=== PATIENT | male | born 1950 | race Caucasian/White ===

== ENCOUNTER → 2018-05-03 09:03 | Outpatient (CLI) | payer MEDICARE, SELFPAY | PROVIDERS: Family Provider Family Medicine; PCP Family Medicine; Visit Provider Family Medicine | DX: R10.13 Epigastric pain (principal) | CPT/HCPCS: 74220 ==

== ENCOUNTER → 2018-08-07 11:36 | Outpatient (CLI) | payer MEDICARE, SELFPAY ==
[2016-11-24 09:02] VITALS: BMI 31.4
[2018-08-07 14:25] LABS: BUN 14 mg/dL (7-18); Creatinine, Serum 0.92 mg/dL (0.70-1.30); EST Glomerular Filtration Rate 87 mL/min (>60); Glucose 99 mg/dL (74-106)
[2018-08-07 14:26] LABS: ALB/GLOB Ratio 1.3 RATIO (0.9-2.4); AST(SGOT) 20 U/L (15-37); Alanine Aminotransfer ALT/SGPT 45 U/L (16-61); Albumin, Serum 3.9 g/dL (3.2-5.0); Alkaline Phosphatase 92 U/L (45-117); Anion Gap 6 (5-15); BUN/Creat Ratio 15.2 RATIO (10-20); Calcium,Total 8.5 mg/dL (8.5-10.1); Chloride 107 mmol/L (98-107); Cholesterol 193 mg/dL (200); Est Glom Filt Rate - Afr Amer 106 mL/min (>60); High Density Lipoprotein 39 mg/dL; PSA,Total - Annual Screen 2.03 ng/mL (0.00-4.00); Potassium 4.5 mmol/L (3.5-5.1); Protein, Total 6.9 g/dL (6.4-8.2); Sodium Level 141 mmol/L (136-145); Triglycerides 168 mg/dL; Very Low Density Lipoprotein 34 mg/dL (5-40)
--- OUTSIDE RECORDS SUMMARY | 2018-10-02 20:32 | XMS RPT_ITS ---
:1950 Author Organization OH[facility] Care Team Providers Name Role Phone Mamadou Ibarra Attending Unavailable Mamadou Ibarra Referring Unavailable Mamadou Ibarra Primary Care Unavailable Mamadou Ibarra Attending Unavailable Mamadou Ibarra Primary Care Unavailable PROBLEMS PROBLEMS No Problem Records FoundPROCEDURES PROCEDURES No Procedure Records FoundRESULTS RESULTS COMPREHENSIVE METABOLIC Collected: 08/07/2018 Status: F Source: [place] [facility] 11:37 AM [facility] REPOSITORY TYPE CODE TESTS RESULT OUT OF RANGE REFERENCE UNITS LAB L501.0100 74-106 mg/dL Normal GLU 99 Result Comment: Please note revised GLUCOSE reference range effective 2017. LAB L501.1000 7-18 mg/dL Normal BUN 14 LAB L501.1100 0.70-1.30 mg/dL Normal CREAT,SERUM 0.92 Result Comment: The validity of the calculated GFR AND GFRAA in patients over 70 years has not been determined. Clinical correlation is essential. LAB L501.1110 >60 mL/min Normal EST GFR 87 Result Comment: Non- GFR Calc LAB L501.1115 >60 mL/min Normal EST GFR - AA 106 Result Comment: GFR Calc LAB L501.1300 10-20 RATIO Normal BUN/CRE 15.2 LAB L501.1500 6.4-8.2 g/dL T Normal PROT 6.9 LAB L501.1800 3.2-5.0 g/dL Normal ALB 3.9 LAB L501.1950 2.2-4.2 g/dL Normal GLOB 3.0 LAB L501.2000 0.9-2.4 RATIO Normal A/G 1.3 LAB L501.2200 8.5-10.1 mg/dL CA Normal 8.5 LAB L501.4100 15-37 U/L Normal AST 20 LAB L501.4305 45-117 U/L Normal ALK P 92 LAB L501.4405 16-61 U/L Normal ALT 45 LAB L501.4600 0.20-1.00 mg/dL T Normal BILI 0.60 LAB L501.5300 136-145 mmol/L NA Normal 141 LAB L501.5600 3.5-5.1 mmol/L K Normal 4.5 LAB L501.5900 98-107 mmol/L CL Normal 107 LAB L501.6100 21.0-32.0 mmol/L Normal CO2 28.0 LAB L501.6200 5-15 Normal GAP 6 Performed By: #### L500.4050, L500.4100, L501.9910 #### [facility] [address] [place], [address] LIPID PROFILE Collected: 08/07/2018 Status: F Source: [place] 11:37 AM [facility] REPOSITORY TYPE CODE TESTS RESULT OUT OF RANGE REFERENCE UNITS LAB L501.4900 200 mg/dL Normal CHOL 193 Result Comment: <200 mg/dL Desirable 200-240 mg/dL Borderline >240 mg/dL High Risk LAB L501.5000 mg/dL Normal TRIG 168 Result Comment: The drugs N-Acetylcysteine and Metamizole may falsely depress this assay. Serum Triglycerides Reference Interval Normal <150 mg/dL Borderline high 150 - 199 mg/dL High 200 - 499 mg/dL Very High > or = 500 mg/dL LAB L501.6400 mg/dL Low HDL 39 Result Comment: The drugs N-Acetylcysteine and Metamizole may falsely depress this assay. Reference Range HDL <40 mg/dL Low HDL Cholesterol HDL >or= 60 mg/dL High HDL Cholesterol LAB L501.6500 0-130 mg/dL Normal LDL 120 LAB L501.6600 5-40 mg/dL Normal VLDL 34 Performed By: #### L500.4050, L500.4100, L501.9910 #### [facility] [address] [place], [address] PSA,TOTAL - ANNUAL Collected: 08/07/2018 Status: F Source: [place] S[place] 11:37 AM [facility] REPOSITORY TYPE CODE TESTS RESULT OUT OF RANGE REFERENCE UNITS LAB L501.9910 0.00-4.00 ng/mL Normal PSA,TOT 2.03 SCREEN Result Comment: This test was performed using the TPSA assay method for the [employer] chemistry system. Values obtained with different assay methods cannot be used interchangably. When changing PSA assays in the course of monitoring a patient, additional sequential testing should be carried out to confirm baseline values. Performed By: #### L500.4050, L500.4100, L501.9910 #### [facility] [address] [place], [address] ESOPHAGUS ONLY Observed: 05/03/2018 Status: F Source: [place] 9:08 AM [facility] REPOSITORY [facility] Imaging Services [address] [place] [address] Esophagus Only MR#: [id number] Acct: [id number] Name: DAVONTE FARLEY Lissy Rep #: [id number] : 1950 M 67 From: Pasha Patino MD PCP: Mamadou Ibarra MD Status: REG CLI Study: Esophagus Only Date of Exam: 05/03/18 Exam# [id number] Ordering Dr: Italo Ibarra MD STUDY: X-RAY - ESOPHAGUS (BARIUM SWALLOW) WITH FLUOROSCOPY REASON FOR EXAM: Male, 67 years old. Esophageal spasm. TECHNIQUE: 18 view(s) of the esophagus were obtained following swallowing of barium. FLUOROSCOPY TIME (if supplied): (0:26) minutes/seconds COMPARISON: None. FINDINGS: There is no demonstrated esophageal foreign body. There is no demonstrated stricture or mucosal abnormality. Normal gastroesophageal junction, without a demonstrated hiatal hernia. The patient ingested a 12 mm tablet of barium without any difficulty. There is atherosclerotic tortuosity of the aortic arch and descending thoracic aorta. Normal visualized pulmonary parenchyma. Normal visualized osseous structures of the thorax. RAD/Esophagus Only IMPRESSION: Normal plain film x-ray examination (barium swallow) of the esophagus. Electronically Signed: Pasha Patino MD at 10:12 EDT Tel [phone], Service support , CC: Mamadou Ibarra MD Beater Boss: Signed ALLERGIES ALLERGIES DATE TYPE / CODE NAME / CODE REACTION SEVERITY SOURCE 11/23/2016 Drug No Known Unknown [facility] Allergy/4160 Allergies/F00 Hospital 55190(SNOMED [id number](RXNOR Repository CT) M) ENCOUNTERS ENCOUNTERS ADMIT/DISCHARGE ACCOUNT ADMITTING ENCOUNTER LOCATION SOURCE NUMBER CLASS 08/07/2018 [id number] Ambulatory [place] [facility] ing:MFPLAB Repository 05/03/2018 [id number] Ambulatory [place] 0 [facility] ing:RAD Repository PAYERS PAYERS ENCOUNTER GUARANTOR PAYER SUBSCRIBER SOURCE 08/07/2018 Davonte Yuan Primary Davonte [id number] Insurance:HUMANA [place] [address] [place] PP[facility]olicy [id number] [address]Ksg: Number: Repository [id number] (HP) Date:[id number] [address] [place] [id number]: 08/07/2018 Secondary NOT GIVENUNK [place] Insurance:SELF PAY [facility] Number: Effective Repository Date:2018-08-07 05/03/2018 Davonte Yuan Primary Davonte Poole [id number] Insurance:HUMANA GorrellDOB: [address], [place] PPOPolicy [id number] [address]Gni: Number: Repository [id number] (HP) Date:[id number] [address] [place] [id number]: 05/03/2018 Secondary NOT GIVENUNK [place] Insurance:SELF PAY [facility]: Effective Repository Date:2018-04-30
== END ==
PROVIDERS: Family Provider Family Medicine; PCP Family Medicine; Visit Provider Family Medicine
DX: E78.00 Pure hypercholesterolemia, unspecified (principal); Z12.5 Encounter for screening for malignant neoplasm of prostate
CPT/HCPCS: 36415; 80053; 80061; 84153; G0103

== ENCOUNTER → 2019-03-21 | Outpatient (CLI) | payer MEDICARE, SELFPAY ==
[2016-11-24 09:02] VITALS: BMI 31.4
[2019-03-21 11:14] LABS: Anion Gap 6 (5-15); BUN 17 mg/dL (7-18); BUN/Creat Ratio 18.5 RATIO (10-20); Calcium,Total 8.7 mg/dL (8.5-10.1); Chloride 109 mmol/L (98-107); Cholesterol 164 mg/dL (200); Creatinine, Serum 0.92 mg/dL (0.70-1.30); EST Glomerular Filtration Rate 87 mL/min (>60); Est Glom Filt Rate - Afr Amer 106 mL/min (>60); Glucose 122 mg/dL (74-106); High Density Lipoprotein 39 mg/dL; Potassium 4.4 mmol/L (3.5-5.1); Sodium Level 142 mmol/L (136-145); Triglycerides 207 mg/dL; Very Low Density Lipoprotein 41 mg/dL (5-40)
== END | disposition home or self-care (01) ==
PROVIDERS: Family Provider Family Medicine; PCP Family Medicine; Visit Provider Family Medicine
DX: I10 Essential (primary) hypertension (principal)
CPT/HCPCS: 36415; 80048; 80061

== ENCOUNTER 2019-06-27 17:26 | Emergency (ER) | payer MEDICARE, SELFPAY ==
[2019-06-27 17:27] VITALS: BP 169/86; PULSE 70; RESP 17; TEMP 36.6; O2SAT 97; BMI 30.4
--- NOTE | 2019-06-27 18:00 | ED.DCSUM_ITS ---
History of Present Illness Chief Complaint: Abd Pain Informant: Patient Onset: Days - 5 Context: Gradual Onset Timing: Intermittent Current Severity: Mild Maximum Severity: Moderate Narrative: Is a 69-year-old male with history of hypertension hyperlipidemia presenting from home with an abnormal CT scan. Patient saw his primary care doctor today because he been having abdominal discomfort as well as constipation mixed with diarrhea. He has not had any associated fever, chills, nausea or vomiting. He did have a large bowel movement 2 days ago that was black and diarrhea. Outpatient CT showed terminal ileitis and pancolitis. Patient states he is actually feeling better right now. He notes he is been feeling unwell and fatigued this week but denies any other complaints. His doctor instructed him to come to the emergency room which is why he is here. Patient is on any anticoagulation and states that he had 3 colonoscopies in the past because his first 1 had polyps. He states is otherwise had normal colonoscopies. Does not have any history of Crohn's or ulcerative colitis. Denies any family history of inflammatory bowel disease. Past Medical History - Allergies and Home Meds Allergies/Adverse Reactions: Allergies No Known Allergies Allergy (Verified 06/27/19 17:26) Primary Care Physician: Italo Ibarra MD [Primary Care Provider] - Past Medical History: - - Hypertension, hyperlipidemia Surgical History: noncontributory Smoking Status: Never smoker Review of Systems All systems negative except as indicated Gastrointestinal: Reports: Abdominal pain, Diarrhea, Melena Physical Exam Vital Signs/Narrative: Vital Signs Temp Pulse Resp BP Pulse Ox 06/27/19 17:27 97.8 F 70 17 169/86 H 97 Inital Vital Signs reviewed: Yes General: Well nourished, Well developed, No Acute Distress Head: Normocephalic, Atraumatic Eyes: Perrl, EOMI ENT: Moist mucous membranes, No rhinorrhea Neck: Supple, Nontender Cardiovascular: Regular rate, Regular rhythm, No murmurs Respiratory: No distress, CTA bilaterally, Chest nontender Abdomen: Soft, Nontender, Nondistended, Hyperactive bowel sounds Back: Nontender, Normal Inspection Extremities: Nontender, No edema Skin: Normal color, No rash Neurological: Alert, Oriented x3, Cranial nerves II-XII grossly intact, Normal Strength, Normal Sensation Psychological: Normal affect, Normal Mood Diagnostic/Tx/Re-eval Laboratory Results - last 24 hr 06/27/19 06/27/19 17:05 17:05 WBC 5.2 RBC 4.84 Hgb 15.2 Hct 42.6 MCV 88.0 MCH 31.4 MCHC 35.7 RDW Std Deviation 43.7 RDW Coeff of Arya 13.5 Plt Count 168 MPV 11.5 Immature Gran % (Auto) 0.200 Neut % (Auto) 62.8 Lymph % (Auto) 18.4 L [place] % (Auto) 16.1 H Eos % (Auto) 1.9 Baso % (Auto) 0.6 Absolute Neuts (auto) 3.2 Absolute Lymphs (auto) 0.95 Nucleated RBC % 0 Sodium 138 Potassium 3.4 L Chloride 105 Carbon Dioxide 25.0 Anion Gap 8 BUN 14 Creatinine 0.92 Estim Creat Clear Calc 82.98 Est GFR (MDRD) Af Amer 106 Est GFR (MDRD) Non-Af 87 BUN/Creatinine Ratio 15.2 Glucose 97 Calcium 8.8 Total Bilirubin 1.10 H AST 27 ALT 41 Alkaline Phosphatase 91 Total Protein 7.7 Albumin 3.8 Globulin 3.9 Albumin/Globulin Ratio 1.0 - Medical Decision Making Patient is evaluated for abdominal pain, diarrhea and abnormal outpatient CT scan. CT scan was concerning for inflammation of the terminal ileum and colitis. Patient does not have a history of inflammatory bowel disease and likely this is infectious. He Is guaiac negative and I have a low suspicion for mesenteric ischemia. Patient's abdomen is soft and nontender on my exam. His white blood cell count is normal as well as his vital signs. Patient was placed on Augmentin to treat infectious colitis. Discussed with physician investigation clerk, Dr. Yo, the results and his need for further outpatient follow-up. I do not think patient requires admission as he is hemodynamically stable does not have significant pain and is tolerating p.o. Patient is counseled on signs and symptoms requiring return to the emergency room. Patient verbalizes agreement and understand this plan. Patient discharged home in stable and improved condition. After patient is discharged before he leaves the ER he does note that he has a mild itching on the palms of his left hand distal to his IV with some mild redness. Patient has good distal capillary refill and is neurovascularly intact. I suspect this might be localized vasoconstriction or other mild reaction to his saline. Patient still cleared for discharge. He is counseled to put ice on it and return if it worsens. ED Disposition - Plan for ED Patient: Disposition: Home or Assisted Living Diagnosis: Colitis Prescriptions: Amoxicillin/Potassium Clav [Augmentin 875-125 Tablet] 1 ea PO BID #14 tab Prescription Printed Referrals: Italo Ibarra MD [Primary Care Provider] - Additional Instructions: Your CT today showed inflammation of your colon. We are presuming that it is from an infection. I am starting you on antibiotics for this. Please follow-up with your primary care doctor early next week. Return to the emergency room if you develop any worsening pain, black or bloody stools, fever or other worsening symptoms. Drink plenty of fluids. Make sure you complete the entire course of antibiotics.
[2019-06-27] MEDS: 0.9% Normal Saline 1,000 ML 1000 ML IV (18:14)
[2019-06-27 18:36] LABS: Absolute Lymphocyte Count 0.95 X10^3/uL (0.83-4.51); Absolute Neutrophil Count 3.2 X10^3/uL (2.0-7.7); Basophil# 0.03 X10^3/uL; Basophil% 0.6 % (0-1); Eosinophils% 1.9 % (0-5); Hematocrit 42.6 % (40-54); Hemoglobin 15.2 g/dL (13.0-16.5); Lymphocyte # 0.95 X10^3/ul (4.0); Lymphocyte % 18.4 % (19-41); Mean Corp Hgb Conc 35.7 g/dL (32-36); Mean Corpuscular Hgb 31.4 pg (27.0-32.0); Mean Platelet Vol. 11.5 fl (6.2-12.0); Monocyte# 0.83 X10^3/uL; Monocyte% 16.1 % (0-10); NRBC Flagged by Analyzer 0 % (0-5); Neutrophil # 3.24 X10^3/uL (2.7-7.7); Neutrophil % 62.8 % (47-70); Platelet Count 168 K/mm3 (150-450); RBC Distribution Width CV 13.5 % (11.6-14.6); RBC Distribution Width SD 43.7 fl (35.1-43.9); Red Blood Count 4.84 M/mm3 (4.6-6.2); White Blood Count 5.2 K/mm3 (4.4-11.0)
[2019-06-27 18:48] LABS: AST(SGOT) 27 U/L (15-37); Alanine Aminotransfer ALT/SGPT 41 U/L (16-61); Albumin, Serum 3.8 g/dL (3.2-5.0); Alkaline Phosphatase 91 U/L (45-117); Anion Gap 8 (5-15); BUN 14 mg/dL (7-18); BUN/Creat Ratio 15.2 RATIO (10-20); Calcium,Total 8.8 mg/dL (8.5-10.1); Chloride 105 mmol/L (98-107); Creatinine, Serum 0.92 mg/dL (0.70-1.30); EST Glomerular Filtration Rate 87 mL/min (>60); Est Glom Filt Rate - Afr Amer 106 mL/min (>60); Estimated Creatinine Clearance 82.98 ml/min; Globulin 3.9 g/dL (2.2-4.2); Glucose 97 mg/dL (74-106); Potassium 3.4 mmol/L (3.5-5.1); Protein, Total 7.7 g/dL (6.4-8.2); Sodium Level 138 mmol/L (136-145)
[2019-06-27] MEDS: Amox/Clavulanate 875 MG Tablet PO (19:37)
[2019-06-27 19:48] VITALS: BP 156/78; PULSE 71; RESP 15; O2SAT 97
--- NOTE | 2019-06-27 19:49 | ED.RN ---
PT WITH REDDENED AREA TO LEFT HAND. DR. WATT INFORMED. REPORTS SHE WILL ASSESS PT. PT REPORTS ITCHINESS TO AREA, DENIES ANY PAIN. REPORTS IT STARTED AFTER THE IV FLUIDS WERE INITIATED THROUGH LEFT WRIST IV.
== END 2019-06-27 20:00 | disposition home or self-care (01) ==
PROVIDERS: Emergency Provider Emergency Medicine; Family Provider Family Medicine; PCP Family Medicine
DX: K52.9 Noninfective gastroenteritis and colitis, unspecified (principal); R10.32 Left lower quadrant pain; E78.5 Hyperlipidemia, unspecified; I10 Essential (primary) hypertension; Z79.899 Other long term (current) drug therapy
CPT/HCPCS: 74177; 80053; 82274; 85025; 96360; 99285; J7030; Q9967; A4216

== ENCOUNTER → 2019-06-27 | Outpatient (CLI) | payer MEDICARE, SELFPAY ==
--- NOTE | 2019-06-27 12:21 | CT_ITS ---
STUDY: CT ABDOMEN AND PELVIS WITH CONTRAST REASON FOR EXAM: Male, 69 years old. One week history of constipation/diarrhea and left lower quadrant pain. RADIATION DOSAGE (If Supplied By Facility): CTDIvol = ( 18 ) mGy, DLP = ( 1254.55 ) mGycm TECHNIQUE: Transaxial images were obtained from the dome of the diaphragm to the symphysis pubis with oral contrast. IV/Oral Isovue 250 100CC was administered. Sagittal and coronal images were reconstructed. Individualized dose optimization techniques were used for this CT. COMPARISON: Comparison is made with prior study November 13, 2016. FINDINGS: The visualized lung bases are unremarkable. Coronary artery calcification. There is decreased attenuation of the liver consistent with steatosis. Stable 4.1 cm x 3.1 cm cyst in the posterior aspect of the right lobe of the liver. There are multiple small gallstones. There is a benign calcified granuloma of the spleen. Normal pancreas. Normal bilateral adrenal glands. Normal right kidney. There is a 2.1 cm x 3.2 cm cyst in the upper lateral portion of the left breast. There is a small hiatal hernia. Mild degree of inflammatory changes involving the terminal ileum. 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 Sigmoid diverticulosis. The appendix is visualized and appears normal. Normal abdominal aorta. Normal inferior vena cava. Normal retroperitoneum. Normal urinary bladder. Small bilateral inguinal hernias containing fat. There are degenerative changes of the visualized lumbar spine. CT/Abdomen/Pelvis WITH Contrast IMPRESSION: And colitis. Inflammatory changes seen in the terminal ileum. Electronically Signed: Pasha Patino, at 15:11 EDT , Service support ,
[2019-06-27 14:50] LABS: CREATININE FINGERSTICK 0.9 mg/dL (0.70-1.30)
== END | disposition home or self-care (01) ==
LOC: CT 12:12
PROVIDERS: Family Provider Family Medicine; PCP Family Medicine; Referring Provider Family Medicine; Visit Provider Family Medicine
DX: R10.32 Left lower quadrant pain (principal)
CPT/HCPCS: 74177; Q9967

== ENCOUNTER → 2019-10-10 14:49 | Outpatient (CLI) | payer MEDICARE, SELFPAY ==
--- NOTE | 2019-10-10 14:56 | ECHOD_ITS ---
Reason For Study: Murmur Procedure This was a 2D Doppler, Color Flow transthoracic echocardiogram. Exam performed in department. Left Ventricle Normal LV size. Left ventricular systolic function is normal. The estimated ejection fraction is 65 %. No evidence for diastolic dysfunction. No regional wall motion abnormalities noted. Right Ventricle Normal RV size. Normal systolic function. Atria The left atrium is mildly enlarged. Normal right atrium. No doppler evidence for ASD. Mitral Valve There is no mitral annular calcification. Normal mitral valve. Mild (1+) mitral valve insufficiency. Tricuspid Valve Normal tricuspid valve. Trivial tricuspid valve insufficiency. Right ventricular systolic pressure estimated to be 19 mmHg. Aortic Valve Trisinus/trileaflet aortic valve. Moderate diffuse aortic valve calcification. Aortic valve sclerosis/mild aortic valve stenosis. Trivial aortic valve insufficiency. Pulmonic Valve The pulmonic valve is not well visualized. Trivial pulmonic valve insufficiency. Great Vessels Normal sized aortic root. Pericardium/Pleural No pericardial effusion. MMode/2D Measurements & Calculations LVIDd: 5.2 cm IVSd: 1.3 cm LVOT diam: 2.0 cm LVIDs: 2.4 cm LVPWd: 1.2 cm LVOT area: 3.2 cm2 RVDd: 3.8 cm FS: 53.1 % Ao root diam: 2.9 cm LAV(MOD-bp): 34.0 ml LVAd ap4: 22.3 cm2 LAV(MOD-bp) Indexed: 15.8 ml/m2 EDV(MOD-sp4): 52.5 ml LAV(MOD-sp2): 44.4 ml EDV(sp4-el): 53.0 ml LAV(MOD-sp4): 25.6 ml LVAs ap4: 10.6 cm2 ESV(MOD-sp4): 16.4 ml ESV(sp4-el): 16.1 ml EF(MOD-sp4): 68.7 % EF(sp4-el): 69.6 % SV(MOD-sp4): 36.1 ml SV(sp4-el): 36.9 ml LA A4 area: 12.8 cm2 LA dimension(2D): 3.9 cm RA A4 area: 13.0 cm2 Doppler Measurements & Calculations MV E max edd: 46.4 cm/sec Lat Peak E' Edd: 6.1 cm/sec Med Peak E' Edd: 4.9 cm/sec MV A max edd: 63.1 cm/sec E/E' lat: 7.6 E/E' med: 9.5 MV E/A: 0.74 Ao V2 max: 231.9 cm/sec LV V1 max: 155.1 cm/sec SV(LVOT): 100.1 ml Ao max P.5 mmHg LV V1 max P.6 mmHg Ao V2 mean: 169.4 cm/sec LV V1 mean P.0 mmHg Ao mean P.6 mmHg LV V1 mean: 105.1 cm/sec Ao V2 VTI: 47.2 cm LV V1 VTI: 31.0 cm TERRY(I,D): 2.1 cm2 TERRY(V,D): 2.2 cm2 PA V2 max: 142.5 cm/sec TR max edd: 198.1 cm/sec TR max P.7 mmHg Interpretation Summary Left ventricular systolic function is normal. The estimated ejection fraction is 65 %. The left atrium is mildly enlarged. Mild (1+) mitral valve insufficiency. Trivial tricuspid valve insufficiency. Aortic valve sclerosis/mild aortic valve stenosis Trivial aortic valve insufficiency. Trivial pulmonic valve insufficiency. Right ventricular systolic pressure estimated to be 19 mmHg. No evidence for diastolic dysfunction. Ordering Physician: Mamadou Ibarra Referring Physician: Mamadou bIarra Performed By: Cristin Stringer RDCS, RVT
== END ==
LOC: CVS 14:51
PROVIDERS: PCP Family Medicine; Referring Provider Family Medicine; Visit Provider Family Medicine
DX: R01.1 Cardiac murmur, unspecified (principal)
CPT/HCPCS: 93306

== ENCOUNTER → 2020-03-30 | Outpatient (CLI) | payer MEDICARE, SELFPAY ==
[2020-03-30 13:09] LABS: ALB/GLOB Ratio 1.3 RATIO (0.9-2.4); AST(SGOT) 15 U/L (15-37); Alanine Aminotransfer ALT/SGPT 33 U/L (16-61); Alkaline Phosphatase 84 U/L (45-117); Anion Gap 5 (5-15); BUN 17 mg/dL (7-18); Calcium,Total 8.4 mg/dL (8.5-10.1); Chloride 108 mmol/L (98-107); Cholesterol 186 mg/dL (200); Creatinine, Serum 0.89 mg/dL (0.70-1.30); EST Glomerular Filtration Rate 90 mL/min (>60); Est Glom Filt Rate - Afr Amer 109 mL/min (>60); Glucose 98 mg/dL (74-106); High Density Lipoprotein 41 mg/dL; Potassium 4.4 mmol/L (3.5-5.1); Sodium Level 140 mmol/L (136-145); Triglycerides 233 mg/dL; Very Low Density Lipoprotein 47 mg/dL (5-40)
== END | disposition home or self-care (01) ==
LOC: MFPLAB 10:19
PROVIDERS: PCP Family Medicine; Referring Provider Family Medicine; Visit Provider Family Medicine
DX: E78.00 Pure hypercholesterolemia, unspecified (principal); Z12.5 Encounter for screening for malignant neoplasm of prostate
CPT/HCPCS: 36415; 80053; 80061; 84153; G0103

== ENCOUNTER → 2020-08-10 15:59 | Outpatient (CLI) | payer MEDICARE, SELFPAY ==
--- NOTE | 2020-08-10 16:01 | RAD_ITS ---
HISTORY: right thumb pain from injury several weeks ago COMPARISON: None FINDINGS: # of images incl. paperwork: 3 XR Fingers Min 2 Views: Right BONE AND JOINTS: There is a tiny calcification is seen at the dorsal aspect of the thumb at the interphalangeal joint. This may be secondary to a small avulsed fragment from the base of the distal phalanx. This is only seen on the lateral view SOFT TISSUES: There is no associated soft tissue swelling No radiopaque foreign body. RAD/Finger(s) Min 2 Views IMPRESSION: Small osseous fragment at the dorsum of the thumb at the interphalangeal joint. This may represent a small avulsed fragment. No associated soft tissue swelling Correlate with the area of pain at 0310 Reported and signed by: Brenda Diaz DO Electronically Signed: Brenda Diaz DO at 3:09 EST Tel , Service support ,
== END ==
PROVIDERS: PCP Family Medicine; Referring Provider Family Medicine; Visit Provider Family Medicine
DX: M79.644 Pain in right finger(s) (principal)
CPT/HCPCS: 73140

== ENCOUNTER 2021-10-04 09:47 | Outpatient (CLI) | payer MEDICARE, SELFPAY ==
[2021-10-04 12:46] LABS: ALB/GLOB Ratio 1.3 RATIO (0.9-2.4); AST(SGOT) 14 U/L (15-37); Alanine Aminotransfer ALT/SGPT 44 U/L (16-61); Alkaline Phosphatase 91 U/L (45-117); Anion Gap 7 (5-15); BUN 14 mg/dL (7-18); BUN/Creat Ratio 15.9 RATIO (10-20); Calcium,Total 8.5 mg/dL (8.5-10.1); Chloride 108 mmol/L (98-107); Cholesterol 172 mg/dL (200); Creatinine, Serum 0.88 mg/dL (0.70-1.30); EST Glomerular Filtration Rate 91 mL/min (>60); Est Glom Filt Rate - Afr Amer 110 mL/min (>60); Glucose 102 mg/dL (74-106); High Density Lipoprotein 40 mg/dL; PSA,Total - Annual Screen 2.24 ng/mL (0.00-4.00); Potassium 4.5 mmol/L (3.5-5.1); Sodium Level 142 mmol/L (136-145); Triglycerides 253 mg/dL; Very Low Density Lipoprotein 51 mg/dL (5-40)
== END 2021-10-04 23:59 | disposition short-term general hospital (02) ==
LOC: MFPLAB 09:50
PROVIDERS: PCP Family Medicine; Referring Provider Family Medicine; Visit Provider Family Medicine
DX: Z12.5 Encounter for screening for malignant neoplasm of prostate (principal); E78.00 Pure hypercholesterolemia, unspecified
CPT/HCPCS: 36415; 80053; 80061; 84153; G0103

== ENCOUNTER → 2022-11-03 | Outpatient (CLI) | payer MEDICARE, SELFPAY ==
--- NOTE | 2022-11-03 08:58 | EKG12_ITS ---
Test Reason : WELL CHECK Blood Pressure : / mmHG Vent. Rate : 051 BPM Atrial Rate : 051 BPM P-R Int : 160 ms QRS Dur : 106 ms QT Int : 432 ms P-R-T Axes : 087 039 050 degrees QTc Int : 398 ms Sinus bradycardia Nonspecific ST abnormality Abnormal ECG Confirmed by CHASTITY DAS, KAYLIN ([id number]), sound editor FANTASMA SEGUNDO ([id number]) on 11/06/2022 11:20:33 AM Referred By: Italo Ibarra Confirmed By:KAYLIN HAYWOOD MD
== END | disposition home or self-care (01) ==
PROVIDERS: PCP Family Medicine; Referring Provider Family Medicine; Visit Provider Family Medicine
DX: Z00.00 Encounter for general adult medical examination without abnormal findings (principal); R06.00 Dyspnea, unspecified
CPT/HCPCS: 93005

== ENCOUNTER → 2022-11-09 | Outpatient (CLI) | payer MEDICARE, SELFPAY ==
--- NOTE | 2022-11-09 08:57 | ECHOD_ITS ---
Reason For Study: DYSPNEA Procedure This was a 2D Doppler, Color Flow transthoracic echocardiogram. Exam performed in department. Left Ventricle Normal LV size. The estimated ejection fraction is 70 %. Diastolic function is indeterminate. No regional wall motion abnormalities noted. Right Ventricle Normal RV size. Normal systolic function. Atria The left atrium is mildly enlarged. Normal right atrium. No doppler evidence for ASD. Mitral Valve There is no mitral valve stenosis. Trivial mitral valve insufficiency. Tricuspid Valve There is no tricuspid stenosis. Trivial tricuspid valve insufficiency. Unable to estimate RV systolic pressure due to insufficient tricuspid regurgitant envelope. Aortic Valve Trisinus/trileaflet aortic valve. Moderate diffuse aortic valve thickening. Mild aortic stenosis. Trivial aortic valve insufficiency. Pulmonic Valve There is no pulmonic valvular stenosis. No pulmonic valve insufficiency. Great Vessels Normal aortic root. Pericardium/Pleural No pericardial effusion. MMode/2D Measurements & Calculations LVIDd: 4.7 cm IVSd: 1.2 cm LVOT diam: 1.9 cm LVIDs: 2.8 cm LVPWd: 1.3 cm LVOT area: 3.0 cm2 RVDd: 3.8 cm FS: 41.3 % Ao root diam: 3.0 cm LAV(MOD-sp4): 67.1 ml LVAd ap4: 30.5 cm2 LVLd ap4: 8.9 cm EDV(MOD-sp4): 85.7 ml EDV(sp4-el): 89.0 ml LVAs ap4: 13.9 cm2 LVLs ap4: 6.5 cm ESV(MOD-sp4): 25.7 ml ESV(sp4-el): 25.2 ml EF(MOD-sp4): 70.0 % EF(sp4-el): 71.7 % SV(MOD-sp4): 60.0 ml SV(sp4-el): 63.8 ml LA A4 area: 21.6 cm2 RA A4 area: 14.2 cm2 Time Measurements MV dec time: 0.21 sec Doppler Measurements & Calculations MV E max edd: 49.1 cm/sec Lat Peak E' Edd: 5.6 cm/sec Med Peak E' Edd: 4.9 cm/sec MV A max edd: 56.8 cm/sec E/E' lat: 8.8 E/E' med: 10.1 MV E/A: 0.86 MV V2 max: 60.0 cm/sec Ao V2 max: 281.2 cm/sec MV max P.4 mmHg MV dec slope: 244.8 cm/sec2 Ao max P.6 mmHg MV V2 mean: 34.5 cm/sec Ao V2 mean: 184.6 cm/sec MV mean P.57 mmHg Ao mean P.2 mmHg MV V2 VTI: 29.8 cm Ao V2 VTI: 60.9 cm AV (velocity ratio): 0.59 MVA(VTI): 3.6 cm2 TERRY(I,D): 1.8 cm2 TERRY(V,D): 1.7 cm2 AI max edd: 423.8 cm/sec LV V1 max: 164.5 cm/sec SV(LVOT): 107.8 ml AI max P.9 mmHg LV V1 max P.8 mmHg LV V1 mean P.7 mmHg AI dec slope: 143.4 cm/sec2 LV V1 mean: 110.6 cm/sec AI P1/2t: 865.9 msec LV V1 VTI: 36.2 cm PA V2 max: 121.4 cm/sec TR max edd: 256.1 cm/sec PA V2 mean: 85.6 cm/sec TR max P.2 mmHg ECHO/Echo Complete Interpretation Summary The estimated ejection fraction is 70 %. Diastolic function is indeterminate. The left atrium is mildly enlarged. Trivial mitral valve insufficiency. Moderate diffuse aortic valve thickening. Mild aortic stenosis. Trivial aortic valve insufficiency. Ordering Physician: Italo Ibarra Referring Physician: Mamadou Ibarra MD Performed By: Debbie Becerril RCS
== END | disposition home or self-care (01) ==
PROVIDERS: PCP Family Medicine; Visit Provider Family Medicine
DX: R06.00 Dyspnea, unspecified (principal)
CPT/HCPCS: 93306

== ENCOUNTER → 2023-02-13 | Outpatient (CLI) | payer MEDICARE, SELFPAY ==
--- NOTE | 2023-02-13 19:10 | STRESSREP ---
Stress Test Report Exercise myocardial perfusion stress test. 72-year-old man with a history of abnormal EKG Stress protocol: Resting EKG demonstrates sinus bradycardia with a rate of 47 bpm resting blood pressure is 138/74 mmHg. The patient exercised according to the regular Stanislaw protocol for a total duration of 6 minutes and 30 seconds attaining a maximum heart rate of 136 bpm which was 90% of maximum predicted heart rate; the maximum workload was 8.5 metabolic equivalents. At rest there were no ST or T wave changes noted to suggest ischemia and at peak exercise approximately [address] depression were noted in leads II, III and aVF and [address] depression noted in V6 were noted which was suggestive of ischemia. No chest pain was noted but shortness of breath was present. The peak blood pressure was 202/70 mmHg. Rate-pressure product was 23,900. Hypertensive response to exercise was noted Myocardial perfusion protocol. 14.8 mCi of technetium 99m sestamibi was injected at rest. The patient exercised according to regular Stanislaw protocol for total duration of 6 minutes and 30 seconds and at peak exercise 44.9 mCi of technetium 99m sestamibi was injected stress images were obtained stress and rest images were reconstructed in comparing the short axis vertical long and horizontal long axis. Gated images were also obtained. Perfusion SPECT analysis: Review of the stress images demonstrate normal uptake of tracer noted in all areas of the myocardium except for small portion of the apex with reduced perfusion. The resting images similarly demonstrate normal uptake of tracer noted in all areas of the myocardium. A small area of apical ischemia cannot be completely excluded and is suggested. Gated SPECT analysis: The gated ejection fraction is 63%. Conclusion: Abnormal exercise myocardial perfusion stress test at a moderate workload with apical ischemia Preserved ejection fraction.
== END | disposition home or self-care (01) ==
PROVIDERS: PCP Family Medicine; Referring Provider Family Medicine; Visit Provider Family Medicine
DX: R94.31 Abnormal electrocardiogram [ECG] [EKG] (principal); I35.1 Nonrheumatic aortic (valve) insufficiency
CPT/HCPCS: 78452; 93017; A9500; A4216

== ENCOUNTER → 2023-04-18 | Outpatient (CLI) | payer MEDICARE, SELFPAY ==
[2023-04-18 10:20] LABS: Absolute Lymphocyte Count 1.19 X10^3/uL (0.83-4.51); Absolute Neutrophil Count 2.6 X10^3/uL (2.0-7.7); Basophil# 0.05 X10^3/uL; Basophil% 1.1 % (0-1); Eosinophil# 0.08 X10^3/uL; Eosinophils% 1.8 % (0-5); Hemoglobin 14.8 g/dL (13.0-16.5); Lymphocyte # 1.19 X10^3/ul (0.83-4.51); Lymphocyte % 26.7 % (19-41); Mean Corp Hgb Conc 33.6 g/dL (32-36); Mean Corpuscular Hgb 30.3 pg (27.0-32.0); Mean Corpuscular Volume 90.2 fL (80-94); Mean Platelet Vol. 11.1 fl (6.2-12.0); Monocyte# 0.57 X10^3/uL; Monocyte% 12.8 % (0-10); NRBC Flagged by Analyzer 0 % (0-5); Neutrophil # 2.56 X10^3/uL (2.7-7.7); Neutrophil % 57.4 % (47-70); Platelet Count 159 K/mm3 (150-450); RBC Distribution Width CV 13.2 % (11.6-14.6); RBC Distribution Width SD 43.4 fl (35.1-43.9); Red Blood Count 4.88 M/mm3 (4.6-6.2); White Blood Count 4.5 K/mm3 (4.4-11.0)
[2023-04-18 10:56] LABS: ALB/GLOB Ratio 1.1 RATIO (0.9-2.4); AST(SGOT) 20 U/L (15-37); Alanine Aminotransfer ALT/SGPT 53 U/L (16-61); Albumin, Serum 3.8 g/dL (3.2-5.0); Alkaline Phosphatase 82 U/L (45-117); Anion Gap 6 (5-15); BUN 13 mg/dL (7-18); BUN/Creat Ratio 14.6 RATIO (10-20); Calcium,Total 8.7 mg/dL (8.5-10.1); Chloride 108 mmol/L (98-107); Creatinine, Serum 0.89 mg/dL (0.70-1.30); EST Glomerular Filtration Rate 89 mL/min (>60); Est Glom Filt Rate - Afr Amer 108 mL/min (>60); Globulin 3.4 g/dL (2.2-4.2); Glucose 120 mg/dL (74-106); PSA,Total - Annual Screen 3.08 ng/mL (0.00-4.00); Potassium 4.3 mmol/L (3.5-5.1); Protein, Total 7.2 g/dL (6.4-8.2); Sodium Level 140 mmol/L (136-145)
== END | disposition home or self-care (01) ==
LOC: MFPLAB 08:49
PROVIDERS: PCP Family Medicine; Visit Provider Family Medicine
DX: Z12.5 Encounter for screening for malignant neoplasm of prostate (principal); E78.00 Pure hypercholesterolemia, unspecified; R06.00 Dyspnea, unspecified
CPT/HCPCS: 36415; 80053; 84153; 85025; G0103

== ENCOUNTER → 2023-05-24 | Outpatient (CLI) | payer MEDICARE, SELFPAY ==
[2023-05-24 11:34] LABS: Anion Gap 4 (5-15); BUN 14 mg/dL (7-18); BUN/Creat Ratio 15.2 RATIO (10-20); Calcium,Total 8.7 mg/dL (8.5-10.1); Chloride 110 mmol/L (98-107); Creatinine, Serum 0.92 mg/dL (0.70-1.30); EST Glomerular Filtration Rate 86 mL/min (>60); Est Glom Filt Rate - Afr Amer 104 mL/min (>60); Glucose 114 mg/dL (74-106); Potassium 4.2 mmol/L (3.5-5.1); Sodium Level 140 mmol/L (136-145); Thyroid Stim Hormone (TSH) 2.04 uIU/mL (0.358-3.74)
== END | disposition home or self-care (01) ==
LOC: MTLAB 08:59
PROVIDERS: PCP Family Medicine; Visit Provider Internal Medicine Cardiovascular Disease
DX: I10 Essential (primary) hypertension (principal); E78.5 Hyperlipidemia, unspecified
CPT/HCPCS: 36415; 80048; 84443

== ENCOUNTER → 2024-01-31 | Outpatient (CLI) | payer MEDICARE, SELFPAY | END | disposition home or self-care (01) | PROVIDERS: PCP Family Medicine; Referring Provider Nurse Practitioner Gerontology; Visit Provider Nurse Practitioner Gerontology | DX: R00.1 Bradycardia, unspecified (principal) | CPT/HCPCS: 93225; 93226 ==

== ENCOUNTER → 2024-04-21 | Outpatient (CLI) | payer MEDICARE, SELFPAY ==
[2024-04-21 12:48] LABS: ALB/GLOB Ratio 1.1 RATIO (0.9-2.4); AST(SGOT) 27 U/L (15-37); Alanine Aminotransfer ALT/SGPT 61 U/L (16-61); Albumin, Serum 3.9 g/dL (3.2-5.0); Alkaline Phosphatase 98 U/L (45-117); Anion Gap 5 (5-15); BUN 17 mg/dL (7-18); BUN/Creat Ratio 19.3 RATIO (10-20); Calcium,Total 9.1 mg/dL (8.5-10.1); Chloride 109 mmol/L (98-107); Cholesterol 175 mg/dL (200); Creatinine, Serum 0.88 mg/dL (0.70-1.30); EST Glomerular Filtration Rate 90 mL/min (>60); Est Glom Filt Rate - Afr Amer 109 mL/min (>60); Globulin 3.5 g/dL (2.2-4.2); Glucose 122 mg/dL (74-106); High Density Lipoprotein 41 mg/dL; PSA,Total - Annual Screen 3.85 ng/mL (0.00-4.00); Potassium 4.1 mmol/L (3.5-5.1); Protein, Total 7.4 g/dL (6.4-8.2); Sodium Level 139 mmol/L (136-145); Triglycerides 159 mg/dL; Very Low Density Lipoprotein 32 mg/dL (5-40)
== END | disposition home or self-care (01) ==
LOC: MFPLAB 10:03
PROVIDERS: PCP Family Medicine; Visit Provider Family Medicine
DX: Z12.5 Encounter for screening for malignant neoplasm of prostate (principal); E78.00 Pure hypercholesterolemia, unspecified
CPT/HCPCS: 36415; 80053; 80061; 84153; G0103

== ENCOUNTER → 2024-08-21 | Outpatient (CLI) | payer MEDICARE, SELFPAY ==
--- NOTE | 2024-08-21 12:54 | CDU_ITS ---
Reason For Study: Carotid bruit Rt. Velocities/BP Lt. Velocities/BP Prox CCA 103.5/13.9 cm/sec. Prox CCA 108.3/24.3 cm/sec. Mid CCA 91.2/13.9 cm/sec. Mid CCA 101/18.8 cm/sec. Dist CCA 83.9/16.3 cm/sec. Dist CCA 115.6/24.3 cm/sec. Prox ICA 60.8/15.7 cm/sec. Prox ICA 82.6/18.8 cm/sec. Mid ICA 76.2/23.4 cm/sec. Mid ICA 74/23.7 cm/sec. Dist ICA 61.9/12.4 cm/sec. Dist ICA 64.2/23.7 cm/sec. Rt. ICA/CCA = 0.84. Lt. ICA/CCA = 0.82. Prox ECA 102.3/7.7 cm/sec. Prox ECA 82.7/9.7 cm/sec. Rt. Vert. 44.3/11.3 cm/sec. Lt. Vert. 47/12.6 cm/sec. Right Extracranial There is intimal thickening but no significant atherosclerotic plaque noted in the right common carotid artery. There is heterogeneous, smooth atherosclerotic plaque noted in the right internal carotid artery. There is intimal thickening but no significant atherosclerotic plaque noted in the right external carotid artery. Antegrade flow is noted in the right vertebral artery. Left Extracranial There is intimal thickening but no significant atherosclerotic plaque noted in the left common carotid artery. There is heterogeneous, smooth atherosclerotic plaque noted in the left internal carotid artery. There is intimal thickening but no significant atherosclerotic plaque noted in the left external carotid artery. Antegrade flow is noted in the left vertebral artery. Procedure Carotid Duplex 55625. This is a Carotid Duplex examination using B-mode, color flow and specral Doppler. Exam performed in department. VL/Carotid Duplex Ultrasound Interpretation Summary Mild (<50%) stenosis right extracranial internal carotid. Mild (<50%) stenosis left extracranial internal carotid. Patent and antegrade vertebrals bilaterally. Ordering Physician: Tonny Armenta Referring Physician: Mamadou Ibarra MD Performed By: Mckayla Lane RVT
--- NOTE | 2024-08-21 12:54 | ECHOD_ITS ---
Reason For Study: OTHER Procedure This was a 2D Doppler, Color Flow transthoracic echocardiogram. Exam performed in department. Left Ventricle Normal LV size. Moderate concentric left ventricular hypertrophy. Left ventricular systolic function is normal. The left ventricular ejection fraction is 60 %. No regional wall motion abnormalities noted. Right Ventricle Normal RV size. Normal systolic function. Atria Normal left atrium. Normal right atrium. Mitral Valve Normal mitral valve. Mild (1+) eccentric mitral valve insufficiency. Tricuspid Valve Normal tricuspid valve. Mild tricuspid valve insufficiency. Pulmonary artery systolic pressure is 27 mmHg. Aortic Valve Trisinus/trileaflet aortic valve. Moderate focal aortic valve calcification. Peak aortic valve gradient 30 mmHg. Mean aortic valve gradient 15 mmHg. Mild to moderate aortic stenosis. Mild (1+) aortic valve insufficiency. Pulmonic Valve Normal pulmonic valve. Trivial pulmonic valve insufficiency. Great Vessels Normal aortic root. The pulmonary artery is normal size. Inferior vena cava collapse with respiration. Pericardium/Pleural No pericardial effusion. MMode/2D Measurements & Calculations LVIDd: 4.4 cm IVSd: 1.5 cm LVOT diam: 2.0 cm LVIDs: 3.0 cm LVPWd: 1.5 cm LVOT area: 3.0 cm2 RVDd: 4.1 cm FS: 32.9 % asc Aorta Diam: 3.2 cm LAV(MOD-bp): 49.3 ml LVAd ap4: 27.8 cm2 LAV(MOD-bp) Indexed: 22.7 ml/m2 LVLd ap4: 8.2 cm LAV(MOD-sp2): 65.0 ml EDV(MOD-sp4): 76.9 ml LAV(MOD-sp4): 36.0 ml EDV(sp4-el): 79.7 ml LVAs ap4: 16.6 cm2 LVLs ap4: 7.2 cm ESV(MOD-sp4): 32.9 ml ESV(sp4-el): 32.7 ml EF(MOD-sp4): 57.3 % EF(sp4-el): 58.9 % SV(MOD-sp4): 44.0 ml SV(sp4-el): 46.9 ml LA A4 area: 14.4 cm2 SI(MOD-sp4): 20.2 ml/m2 RA A4 area: 15.7 cm2 Time Measurements MV dec time: 0.31 sec Doppler Measurements & Calculations MV E max edd: 46.8 cm/sec Lat Peak E' Edd: 6.4 cm/sec Med Peak E' Edd: 4.9 cm/sec MV A max edd: 68.8 cm/sec E/E' lat: 7.3 E/E' med: 9.6 MV E/A: 0.68 Ao V2 max: 275.7 cm/sec AI max edd: 432.5 cm/sec MV dec slope: 150.3 cm/sec2 Ao max P.5 mmHg AI max P.9 mmHg Ao V2 mean: 181.6 cm/sec Ao mean P.3 mmHg AI dec slope: 146.0 cm/sec2 Ao V2 VTI: 63.6 cm AI P1/2t: 867.9 msec AV (velocity ratio): 0.53 TERRY(I,D): 1.6 cm2 TERRY(V,D): 1.6 cm2 LV V1 max: 146.6 cm/sec SV(LVOT): 103.2 ml PA V2 max: 111.2 cm/sec LV V1 max P.6 mmHg LV V1 mean P.7 mmHg LV V1 mean: 101.4 cm/sec LV V1 VTI: 33.9 cm TR max edd: 246.2 cm/sec TR max P.3 mmHg ECHO/Echo Complete Interpretation Summary Normal LV size. Moderate concentric left ventricular hypertrophy. Left ventricular systolic function is normal. The left ventricular ejection fraction is 60 %. Mild (1+) eccentric mitral valve insufficiency. Pulmonary artery systolic pressure is 27 mmHg. Mean aortic valve gradient 15 mmHg. Mild to moderate aortic stenosis. Ordering Physician: Tonny Armenta Referring Physician: Tonny Armenta Performed By: Debbie Garsia and Student
== END | disposition home or self-care (01) ==
PROVIDERS: PCP Family Medicine; Referring Provider Internal Medicine Cardiovascular Disease; Visit Provider Internal Medicine Cardiovascular Disease
DX: I35.0 Nonrheumatic aortic (valve) stenosis (principal); R09.89 Other specified symptoms and signs involving the circulatory and respiratory systems; I10 Essential (primary) hypertension; R00.1 Bradycardia, unspecified; R94.39 Abnormal result of other cardiovascular function study
CPT/HCPCS: 93306; 93880

== ENCOUNTER → 2024-08-28 | Outpatient (CLI) | payer MEDICARE, SELFPAY ==
--- NOTE | 2024-08-28 12:34 | CT_ITS ---
STUDY: CT CHEST WITH T WITHOUT CONTRAST REASON FOR EXAM: Male, 74 years old. AORTIC STENOSIS/HTN RADIATION DOSAGE (If Supplied By Facility): CTDIvol = ( 27.67 ) mGy, DLP = ( 1394.54 ) mGycm TECHNIQUE: Transaxial imaging was performed pre and post intravenous administration of 100 mL of Isovue-370. Cardiac Overread examination. Individualized dose optimization techniques were used for this CT. COMPARISON: No relevant priors. FINDINGS: CHEST The lungs are normal. There is no demonstrated pleural abnormality. There are calcifications of the coronary arteries. Calcification of the aortic valve. Normal mediastinum. Normal hilar regions. Normal unenhanced pulmonary arteries. Normal aorta arch and descending thoracic aorta. Normal osseous structures. Fatty infiltration of the liver. CT/Limited Chest CT Cardiac Only IMPRESSION: Coronary artery calcification. Calcification of the aortic valve. Electronically Signed: Pasha Patino MD at 9:21 EST ,
[2024-08-28 12:49] VITALS: BP 163/79; PULSE 52; RESP 16; O2SAT 97; BMI 30.1
[2024-08-28 13:12] VITALS: PULSE 53
[2024-08-28] MEDS: Nitroglycerin SL (ED/IMG/CATH) 0.4 MG TABLET SL (13:12)
[2024-08-28 13:17] VITALS: BP 148/74; PULSE 58; RESP 16; O2SAT 96
[2024-08-28 13:17] LABS: CREATININE FINGERSTICK < 1.0 mg/dL (0.70-1.30); EGFR FINGERSTICK > 60.0000 mL/min (>60)
--- NOTE | 2024-08-28 16:52 | CCTA_ITS ---
CCTA w/Cont Coronary Arteries Date of Study:: 08/28/24 HTN/Aortic stenosis Coronary Calcium Scoring: High-resolution Computed Tomographic imaging of the chest was performed on [08/28/2024], with particular attention paid to the coronary arteries. Intravenous contrast agent was administered per protocol and images reconstructed and displayed. LEFT MAIN CORONARY ARTERY: This arises from the left coronary cusp with mild calcification and bifurcates to left and descending artery left circumflex artery no significant stenosis noted in this vessel. Coronary calcium appears to be an extension of the aortic root. [] LEFT ANTERIOR DESCENDING CORONARY ARTERY: Medium size vessel with mild proximal eccentric calcification with mild stenosis. Total Agatston score is 36.6. [] LEFT CIRCUMFLEX CORONARY ARTERY: Nondominant circumflex artery with mild calcification noted proximally and no significant luminal stenosis noted. Total Agatston score was 14.5 [] RIGHT CORONARY ARTERY: Arises from the right coronary cusp with focal calcification noted in the proximal and mid segment. No high-grade stenosis is noted. Total Agatston score is 55.6 [] THORACIC AORTA: [] PULMONARY ARTERY: [] LEFT ATRIUM/APPENDAGE: [] MITRAL VALVE: [] AORTIC VALVE: Trileaflet valve with significant calcification [] LEFT VENTRICLE: Normal size [] CORONARY CALCIUM SCORE: 192 with percentile ranking between 25th and 50th pe rcentile [] Conclusion: Trileaflet calcified aortic valve. Mild to moderate atherosclerotic plaquing with no high-grade stenosis noted in the 3 vessels.
== END | disposition home or self-care (01) ==
LOC: CT 12:32
PROVIDERS: PCP Family Medicine; Referring Provider Internal Medicine Cardiovascular Disease; Visit Provider Internal Medicine Cardiovascular Disease
DX: I35.0 Nonrheumatic aortic (valve) stenosis (principal); I10 Essential (primary) hypertension; E78.5 Hyperlipidemia, unspecified; R94.39 Abnormal result of other cardiovascular function study; I25.10 Atherosclerotic heart disease of native coronary artery without angina pectoris
CPT/HCPCS: 75571; 75574; 76380; Q9967

== ENCOUNTER → 2025-02-06 | Outpatient (CLI) | payer MEDICARE, SELFPAY ==
[2025-02-06 16:29] LABS: ALB/GLOB Ratio 1.6 RATIO (0.9-2.4); AST(SGOT) 28 U/L (<=37); Alanine Aminotransfer ALT/SGPT 45 U/L (<=46); Albumin, Serum 4.4 g/dL (3.4-4.8); Alkaline Phosphatase 91 U/L (40-129); Anion Gap 10 (5-15); BUN 13 mg/dL (4-19); BUN/Creat Ratio 14.4 RATIO (10-20); Calcium,Total 9.1 mg/dL (7.6-11.0); Carbon Dioxide 26.1 mmol/L (21.0-32.0); Chloride 104 mmol/L (98-108); Cholesterol 177 mg/dL (<=200); Creatinine, Serum 0.92 mg/dL (0.70-1.20); EST Glomerular Filtration Rate 88 (>60); Globulin 2.7 g/dL (2.2-4.2); Glucose 101 mg/dL (70-99); High Density Lipoprotein 44 mg/dL; Low Density Lipoprotein Calc. 97 mg/dL; Potassium 4.3 mmol/L (3.3-5.1); Protein, Total 7.1 g/dL (5.9-8.4); Sodium Level 139 mmol/L (133-145); Total Bilirubin 0.53 mg/dL (0.00-1.30); Triglycerides 182 mg/dL; Very Low Density Lipoprotein 36 mg/dL (5-40); cholesterol:hdl ratio screen 4.03
== END | disposition home or self-care (01) ==
LOC: MTLAB 12:44
PROVIDERS: PCP Family Medicine; Referring Provider Internal Medicine Cardiovascular Disease; Visit Provider Internal Medicine Cardiovascular Disease
DX: I10 Essential (primary) hypertension (principal); E78.5 Hyperlipidemia, unspecified
CPT/HCPCS: 36415; 80053; 80061

== ENCOUNTER 2025-04-26 08:53 | Emergency (ER) | payer MEDICARE, SELFPAY ==
[2025-04-26 08:53] VITALS: BP 205/65; PULSE 101; RESP 18; TEMP 35.8; O2SAT 98; BMI 31.6
[2025-04-26 08:58] VITALS: BP 179/71
--- OUTSIDE RECORDS SUMMARY | 2025-04-26 09:54 | XMS RPT_ITS | CCD ---
Author Organization [facility] Care Team Providers Care Electoral Officer Name Role Phone Dr. Italo Ibarra Primary Care Provider Dr. Italo Ibarra Referring Provider Dr. Vikas Flood Attending Provider Dr. Kenroy Black Attending Provider [phone] Dr. Italo Ibarra Primary Care Provider Dr. Italo Ibarra Referring Provider Dr. Italo Ibarra Other Provider Dr. Vikas Flood Attending Provider Dr. Tonny Armenta Attending Provider Fred DAS, Dr. Cedillo Primary Care Provider Dr. Mamadou Ibarra MD Referring Provider Geovany DAS, Dr. Lancaster Attending Provider Vikas Flood Attending Unavailable Fred Christтатьяна Primary Care Unavailable Geovany, Tonny Attending Unavailable Geovany, Tonny Referring Unavailable Fred, Christтатьяна Primary Care Unavailable Geovany, Tonny Attending Unavailable Fred, Christophkaran Primary Care Unavailable Geovany, Tonny Referring Unavailable Mamadou Ibarra Referring Unavailable Geovany, Tonny Attending Unavailable Fred, Christopher Primary Care Unavailable Vikas Flood Attending Unavailable Fred, Christophkaran Primary Care Unavailable Geovany, Tonny Referring Unavailable Geovany, Tonny Consulting Unavailable Fred, Christopher Primary Care Unavailable Geovany, Tonny Attending Unavailable Mamadou Ibarra Referring Unavailable Mamadou Ibarra Referring Unavailable Tonny Armenta Attending Unavailable Mamadou Ibarra Primary Care Unavailable Mamadou Ibarra Primary Care Unavailable Tonny Armenta Referring Unavailable Tonny Armenta Attending Unavailable Mamadou Ibarra Primary Care Unavailable Mamadou Ibarra Attending Unavailable Mamadou Ibarra Primary Care Unavailable Tonny Armenta Referring Unavailable Wilver Tilley Attending Unavailable Geovany DAS, Dr. Lancaster Referring Provider Allergies Allergy Classification Reported Allergen(s) Allergy Type Date of Onset Reaction(s) Facility (2 sources) Glutamate Drug Allergy 5 tongue swelling [facility] (1 source) monosodium glutamate Drug allergy (disorder) 5 [facility] Repository Medications Current Medications Medication Drug Class(es) Dates Sig (Normalized) Sig (Original) aspirin 81 mg delayed release oral tablet (3 sources) Platelet Aggregation Inhibitor, Nonsteroidal Anti-inflammatory Drug Start: 05-04-2023 take 1 tablet by mouth once daily Aspirin 81 mg tablet,delayed release (DR/EC) Active 81 mg PO DAILY May 04, 2023 12:00am atorvastatin 20 mg oral tablet (8 sources) HMG-CoA Reductase Inhibitor Start: 07-28-2024 End: 02-04-2025 take 2 tablets by mouth once daily Atorvastatin 20 mg tablet Active 40 mg PO daily February 04, 2025 2:07pm Start: 09-16-2016 End: 07-28-2024 take 1 tablet by mouth at bedtime Atorvastatin 20 MG tablet Discontinued 20 mg PO AT BEDTIME September 16, 2016 1:00am July 28, 2024 2:10pm Multivitamin (Multiple Vitam ins) tablet (3 sources) Start: 05-04-2023 Multivitamin ( Multiple Vitamins) tablet Active 1 {tbl} PO DAILY May 04, 2023 2:24pm Start: 05-04-2023 take 1 tablet by chandrika th once daily Multivitamin (Multiple Vitamins) tablet Active 1 TABLET PO DAILY May 04, 2023 2:24pm omeprazole 40 mg delayed release oral capsule (5 sources) Proton Pump Inhibitor Start: 05-04-2023 End: 01-02-2024 take 1 capsule by mouth once daily as needed Omeprazole 40 mg capsule,delayed release(DR/EC) Active 40 mg PO DAILY as needed for gi January 02, 2024 2:58pm Completed/Discontinued Medications Medication Drug Class(es) Dates Sig (Normalized) Sig (Original) amoxicillin 875 mg / clavulanate 125 mg oral tablet (4 sources) Penicillin-class Antibacterial Start: 06-27-2019 End: 05-04-2023 Amoxicillin-Pot Clavulanate 1 EACH tablet Discontinued 1 NMA PO TWICE A DAY June 27, 2019 12:00am May 04, 2023 2:23pm Start: 06-27-2019 End: 05-04-2023 Amoxicillin-Pot Clavulanate Discontinued 1 EACH PO TWICE A DAY June 27, 2019 12:00am May 04, 2023 2:23pm lisinopril 10 mg oral tablet (14 sources) Angiotensin Converting Enzyme Inhibitor Start: 05-16-2023 End: 08-13-2024 Lisinopril 10 mg tablet Discontinued 0 .ROUTE .COMPLEX 180 October 11, 2023 1:37pm August 13, 2024 8:52am TAKE 2 TABLETS EVERY DAY Start: 05-16-2023 End: 05-16-2023 take 20 mg by mouth once daily Lisinopril Active 20 MG PO DAILY May 16, 2023 2:05pm Start: 06-27-2019 End: 05-16-2023 take 1 tablet by mouth once daily Lisinopril 10 MG tablet Discontinued 10 mg PO DAILY June 27, 2019 12:00am May 16, 2023 9:08am Multivitamin (Multiple Vitamins) 1 EACH tablet (4 sources) Start: 11-23-2016 End: 05-04-2023 take 1 tablet by mouth once daily Multivitamin (Multiple Vitamins) 1 EACH tablet Discontinued 1 NMA PO DAILY November 23, 2016 12:00am May 04, 2023 2:26pm Start: 11-23-2016 End: 05-04-2023 take 1 tablet by mouth once daily Multivitamin (Multiple Vitamins) 1 EACH tablet Discontinued 1 EACH PO DAILY November 23, 2016 12:00am May 04, 2023 2:26pm Start: 11-23-2016 take 1 tablet by chandrika th once daily Multivitamin (Multiple Vitamins) 1 EACH tablet Active 1 EACH PO DAILY November 22, 2016 11:00pm Problems Active Problems Problem Classification Problem Date Documented Date Episodic/Chronic Cardiac dysrhythmias (4 sources) Sinus bradycardia; Translations: [Bradycardia, unspecified] 05-16-2023 Episodic Coronary atherosclerosis and other heart disease (4 sources) Coronary arteriosclerosis; Translations: [Atherosclerotic heart disease of [place] coronary artery without angina pectoris] 02-04-2025 Chronic Disorders of lipid metabolism (11 sources) Dyslipidemia; Translations: [Hyperlipidemia, unspecified] Onset: 07-28-2024 05-16-2023 Chronic Essential hypertension (8 sources) Essential hypertension; Translations: [Essential (primary) hypertension] Onset: 10-02-2024 05-16-2023 Chronic Heart valve disorders (8 sources) Aortic valve stenosis; Translations: [Nonrheumatic aortic (valve) stenosis] Onset: 10-02-2024 05-16-2023 Chronic Noninfectious gastroenteritis (4 sources) Colitis; Translations: [Noninfective gastroenteritis and colitis, unspecified] 06-28-2019 Episodic Other circulatory disease (4 sources) Disorder of carotid artery; Translations: [Disorder of arteries and arterioles, unspecified] 02-04-2025 Chronic Other circulatory disease (2 sources) Carotid bruit; Translations: [Other specified symptoms and signs involving the circulatory and respiratory systems] 07-28-2024 Episodic Past or Other Problems Problem Classification Problem Date Documented Date Episodic/Chronic Other circulatory disease (1 source) Other specified symptoms and signs involving the circulatory and respiratory systems; Translations: [Other specified symptoms and signs involving the circulatory and respiratory systems] Onset: 07-28-2024 Episodic Other screening for suspected conditions (not mental disorders or infectious disease) (7 sources) Cardiovascular stress test abnormal; Translations: [Abnormal result of other cardiovascular function study] Onset: 05-19-2024 05-16-2023 Episodic Results Test Name Value Interpretation Reference Range Facility Anion gap in Serum or Plasma Ordered By: Tonny Armenta on 02-06-2025 Anion gap [Moles/Vol] 10 mmol/L 5-15 [facility] BUN/creatinine ratioOrdered By: Tonny Armenta on 02-06-2025 Urea nitrogen/Creatinine [Mass ratio] 14.4 mg/mg 10-20 [facility] Bilirubin, totalOrdered By: Tonny Armenta on 02-06-2025 Bilirubin [Mass/Vol] 0.53 mg/dL 0.00-1.30 [facility] Calculated very low density lipoprotein (VLDL) cholesterol measurementOrdered By: Tonny Armenta on 02-06-2025 Calculated very low density lipoprotein (VLDL) cholesterol measurement 36 mg/dL 5-40 [facility] Carbon dioxide, total [Moles /volume] in Central venous bloodOrdered By: Tonny Armenta on 02-06-2025 CO2 [Moles/Vol] 26.1 mmol/L 21.0-32.0 [facility] Chloride assayOrdered By: Juwan Armenta on 02-06-2025 Chloride [Moles/Vol] 104 mmol/L 98-108 [facility] Comprehensive Metabolic Prof ilon 02-06-2025 Albumin [Mass/Vol] 4.4 g/dL Normal 3.4-4.8 [facility] Comment on above: Performed By: #### L 500.4100, L500.4050 #### [facility] [address] [place], [address] Albumin/Globulin [Mass ratio] 1.6 {ratio} Normal 0.9-2.4 [facility] Comment on above: Performed By: #### L 500.4100, L500.4050 #### [facility] [address] [place], [address] ALK PHOS 91 U/L Normal 40-129 [facility] Comment on above: Performed By: #### L 500.4100, L500.4050 #### [facility] [address] [place], [address] ALT [Catalytic activity/Vol] 45 U/L Normal <=46 [facility] Comment on above: Performed By: #### L 500.4100, L500.4050 #### [facility] [address] [place], [address] AST [Catalytic activity/Vol] 28 U/L Normal <=37 [facility] Comment on above: Performed By: #### L 500.4100, L500.4050 #### [facility] [address] [place], [address] Bilirubin [Mass/Vol] 0.53 mg/dL Normal 0.00-1.30 [facility] Comment on above: Performed By: #### L 500.4100, L500.4050 #### [facility] [address] [place], [address] BUN/CRE 14.4 RATIO Normal 10-20 [facility] Comment on above: Performed By: #### L 500.4100, L500.4050 #### [facility] [address] [place], [address] Calcium [Mass/Vol] 9.1 mg/dL Normal 7.6-11.0 [facility] Comment on above: Performed By: #### L 500.4100, L500.4050 #### [facility] [address] [place], [address] Chloride [Moles/Vol] 104 mmol/L Normal 98-108 [facility] Comment on above: Performed By: #### L 500.4100, L500.4050 #### [facility] [address] [place], [address] CO2 [Moles/Vol] 26.1 mmol/L Normal 21.0-32.0 [facility] Comment on above: Performed By: #### L 500.4100, L500.4050 #### [facility] [address] [place], [address] Creatinine [Mass/Vol] 0.92 mg/dL Normal 0.70-1.20 [facility] Comment on above: Performed By: #### L 500.4100, L500.4050 #### [facility] [address] [place], [address] GAP 10 Normal 5-15 [facility] Comment on above: Performed By: #### L 500.4100, L500.4050 #### [facility] [address] [place], [address] GFR/1.73 sq M.predicted among non-blacks MDRD (S/P/Bld) [Vol rate/Area] 88 mL/min/{1.73_m2} Normal >60 [facility] Comment on above: Result Comment: mL/m in/1.73m2 CKD-EPI Creatinine Equation (2020) Performed By: #### L 500.4100, L500.4050 #### [facility] [address] [place], [address] Globulin (S) [Mass/Vol] 2.7 g/dL Normal 2.2-4.2 [facility] Comment on above: Performed By: #### L 500.4100, L500.4050 #### [facility] [address] [place], [address] Glucose [Mass/Vol] 101 mg/dL High 70-99 [facility] Comment on above: Performed By: #### L 500.4100, L500.4050 #### [facility] [address] [place], [address] Potassium [Moles/Vol] 4.3 mmol/L Normal 3.3-5.1 [facility] Comment on above: Performed By: #### L 500.4100, L500.4050 #### [facility] [address] [place], [address] Sodium [Moles/Vol] 139 mmol/L Normal 133-145 [facility] Comment on above: Performed By: #### L 500.4100, L500.4050 #### [facility] [address] [place], [address] T PROT 7.1 g/dL Normal 5.9-8.4 [facility] Comment on above: Performed By: #### L 500.4100, L500.4050 #### [place] [facility] [address] [place], [address] Urea nitrogen [Mass/Vol] 13 mg/dL Normal 4-19 [facility] Comment on above: Performed By: #### L 500.4100, L500.4050 #### [facility] [address] [place], [address] Glomerular filtration rate ( GFR) estimation/1.73 sq m using serum, plasma, or whole bOrdered By: Tonny Armenta on 02-06-2025 GFR/1.73 sq M.predicted among non-blacks MDRD (S/P/Bld) [Vol rate/Area] 88 mL/min/{1.73_m2} >60 [facility] Comment on above: mL/min/1.73m2 CKD-EP I Creatinine Equation (2020) LDL calc ser/plasOrdered By: Tonny Armenta on 02-06-2025 Cholesterol in LDL [Mass/Vol] 97 mg/dL [facility] Comment on above: Wfekhgqdzx=037-122 m g/dL & Higher Hhbq=059 mg/dL or greater Laboratory - Chemistry and C hemistry - challengeOrdered By: Tonny Armenta on 02-06-2025 AST [Catalytic activity/Vol] 28 U/L <38 [facility] Lipid Profileon 02-06-2025 CHOL:HDL 4.03 Normal [facility] Comment on above: Performed By: #### L 500.4100, L500.4050 #### [facility] [address] [place], [address] Cholesterol [Mass/Vol] 177 mg/dL Normal <=200 [facility] Comment on above: Result Comment: Chol esterol level, Desirable <200 mg/dL Borderline high cholesterol 200-239 mg/dL High cholesterol >=240 mg/dL Recommendations of the NCEP Adult Treatment Panel for the following risk-cutoff thresholds for the [place] population. Performed By: #### L 500.4100, L500.4050 #### [facility] [address] [place], [address] Cholesterol in HDL [Mass/Vol] 44 mg/dL Normal [facility] Comment on above: Result Comment: Steffany onal Cholesterol Education Program (NCEP) guidelines: <40 mg/dL: Low HDL-cholesterol (major risk factor for CHD) >= 60 mg/dL: High HDL-cholesterol (negative risk factor for CHD) HDL-cholesterol is affected by a number of factors, e.g. smoking, exercise, hormones, sex and age. Performed By: #### L 500.4100, L500.4050 #### [facility] [address] [place], [address] Cholesterol in LDL [Mass/Vol] 97 mg/dL Normal [facility] Comment on above: Result Comment: Bord aoksse=774-508 mg/dL Higher Ytxf=454 mg/dL or greater Performed By: #### L 500.4100, L500.4050 #### [facility] [address] [place], [address] Cholesterol in VLDL [Mass/Vol] 36 mg/dL Normal 5-40 [facility] Comment on above: Performed By: #### L 500.4100, L500.4050 #### [facility] [address] [place], [address] Triglyceride [Mass/Vol] 182 mg/dL Normal [facility] Comment on above: Result Comment: The drugs N-Acetylcysteine and Metamizole may falsely depress this assay. Normal range: <150 mg/dL Borderline High: 150-199 mg/dL High: 200-499 mg/dL Very High: >500 mg/dL Performed By: #### L 500.4100, L500.4050 #### [facility] [address] [place], [address] Potassium measurement (mass/ volume)Ordered By: Tonny Armenta on 02-06-2025 Potassium (Unsp spec) [Mass/Vol] 4.3 mmol/L 3.3-5.1 [facility] Screening total cholesterol/ high density lipoprotein (HDL) cholesterol ratioOrdered By: Tonny Armenta on 02-06-2025 Cholesterol.total/Maricruz sterol in HDL [Mass ratio] 4.03 {ratio} [facility] Serum creatinine measurement (mass/volume)Ordered By: Tonny Armenta on 02-06-2025 Creatinine [Mass/Vol] 0.92 mg/dL 0.70-1.20 [facility] Serum globulin measurementOr dered By: Tonny Armenta on 02-06-2025 Globulin (S) [Mass/Vol] 2.7 g/dL 2.2-4.2 [facility] Serum glucose measurement (m ass/volume)Ordered By: Tonny Armenta on 02-06-2025 Glucose [Mass/Vol] 101 mg/dL High 70-99 [facility] Serum or plasma alanine deleon otransferase (ALT) measurementOrdered By: Tonny Armenta on 02-06-2025 ALT [Catalytic activity/Vol] 45 U/L <47 [facility] Serum or plasma albumin christina urement (mass/volume)Ordered By: Tonny Armenta on 02-06-2025 Albumin [Mass/Vol] 4.4 g/dL 3.4-4.8 [facility] Serum or plasma albumin/glob ulin mass ratioOrdered By: Tonny Armenta on 02-06-2025 Albumin/Globulin [Mass ratio] 1.6 {ratio} 0.9-2.4 [facility] Serum or plasma alkaline belinda sphatase measurementOrdered By: Tonny Armenta on 02-06-2025 ALP [Catalytic activity/Vol] 91 U/L 40-129 [facility] Serum or plasma calcium christina urement (mass/volume)Ordered By: Tonny Armenta on 02-06-2025 Calcium [Mass/Vol] 9.1 mg/dL 7.6-11.0 [facility] Serum or plasma cholesterol in HDL measurement (mass/volume)Ordered By: Tonny Armenta on 02-06-2025 Cholesterol in HDL [Mass/Vol] 44 mg/dL >40 [facility] Comment on above: National Cholesterol Education Program (NCEP) guidelines:<40 mg/dL: Low HDL-cholesterol (major risk factor for CHD)>= 60 mg/dL: High HDL-cholesterol (negative risk factor for CHD)HDL-cholesterol is affected by a number of factors, e.g. smoking, exercise, hormones, sex and age. Serum or plasma cholesterol measurement (mass/volume)Ordered By: Tonny Armenta on 02-06-2025 Cholesterol [Mass/Vol] 177 mg/dL <201 [facility] Comment on above: Cholesterol level, D esirable <200 mg/dLBorderline high cholesterol 200-239 mg/dLHigh cholesterol >=240 mg/dLRecommendations of the NCEP Adult Treatment Panel for the following risk-cutoff thresholds for the [place] population. Serum or plasma urea nitroge n measurement (mass/volume)Ordered By: Tonny Armenta on 02-06-2025 Urea nitrogen [Mass/Vol] 13 mg/dL 4-19 [facility] Sodium levelOrdered By: Ranjit Armenta on 02-06-2025 Sodium [Moles/Vol] 139 mmol/L 133-145 [facility] Total proteinOrdered By: Sandoval Armenta on 02-06-2025 Protein [Mass/Vol] 7.1 g/dL 5.9-8.4 [facility] Triglycerides measurementOrd ered By: Tonny Armenta on 02-06-2025 Triglyceride [Mass/Vol] 182 mg/dL <199 [facility] Comment on above: The drugs N-Acetylcy steine and Metamizole may falsely depress this assay. Normal range: <150 mg/dLBorderline High: 150-199 mg/dLHigh: 200-499 mg/dLVery High: >500 mg/dL Cardiology Visit Reporton Cardiology Visit Report [facility] [address] [place], [place] [address] OFFICE VISIT Date of Service: 02/04/25 MR#: [id number] Acct: [id number] Name: BENEDICT FARLEY Rep #: [id number] : 1950 Provider: Dr. Tonny Armenta MD Age/Sex: 74/M [place] [facility] [place] Signed HPI HPI History of Present Illness Details: This pleasant gentleman with history of mild aortic valve stenosis, hypertension and dyslipidemia is here for follow-up visit. For his mildly abnormal stress test, he has had coronary CT angio done as a follow-up. It showed mild to moderate CAD with no high-grade stenosis. Denies any complaints today. No chest pains. No shortness of breath. No palpitations. No orthopnea or PND. No lightheadedness or dizziness. No syncope or presyncope. Denies any ankle edema. 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 Accompanied by: Self Is patient in pain?: No Allergies monosodium glutamate (msg) Allergy (Intermediate, Verified 02/04/25 14:08) tongue swelling Medications ???Medication ???Instructions ???Recorded ???Confirmed ???Type aspirin 81 mg tablet,delayed 81 mg PO DAILY 05/04/23 02/04/25 H istory release multivitamin (Multiple Vitamins 1 tab PO DAILY 05/04/23 02/04/25 H istory tablet) omeprazole 40 mg capsule,delayed 40 mg PO DAILY PRN gi 01/02/24 History release lisinopril 10 mg tablet 20 mg (2 x 10 mg) PO DAILY #180 02/04/25 Rx TABLETS atorvastatin 20 mg tablet 40 mg PO QDAY 02/04/25 02/04/25 Hi story Ejection fraction %: 60 Have you fallen in the past year?: No PFSH Medical History Abnormal stress test Dyspepsia Essential hypertension Hyperlipidemia Family History Mother Heart disease Social History Smoking Status: Never smoker alcohol intake: current alcohol intake frequency: holidays/special occasions only substance use type: does not use ROS Const Const: Negative for fatigue, weakness, headache(s) or weight gain ENT ENT: Negative for headache(s), dizziness, Nosebleed/epistaxis or balance problems Cardio Chest Pain: No Palpitations: No Edema: None Muscle aches with walking: None Resp Respiratory: Negative for SOB with activity, SOB at rest or SOB orthopnea SOB lying down GI GI: Negative nausea, vomiting or heartburn Musc Musc: Negative for muscle aches/ myalgia, muscle weakness, joint pain or balance problems Neuro Neuro: Negative for dizziness, lightheadedness, near syncope, syncope, headache(s) or weakness Endo Endo: Negative for fatigue Cardiology Exam Const Appearance: comfortable and no acute distress Nutritional Appearance: well nourished Neck Neck: no JVD Carotids: bruit (Soft right carotid bruit) Chest Auscultation: Bilateral: Clear to Auscultation Cardio Rate: regular rate Rhythm: regular rhythm Heart sounds: S1 normal and S2 normal 3/6 systolic murmur at apex and base Neuro General: patient alert, patient awake and patient oriented x3 Extremities Lower Extremity Edema: None: Bilateral Supplemental Info Supplemental Information Echocardiogram 08/21/2024: Interpretation Summary Normal LV size. Moderate concentric left ventricular hypertrophy. Left ventricular systolic function is normal. The left ventricular ejection fraction is 60 %. Mild (1+) eccentric mitral valve insufficiency. Pulmonary artery systolic pressure is 27 mmHg. Mean aortic valve gradient 15 mmHg. Mild to moderate aortic stenosis. ECHOCARDIOGRAM 11/09/2022: Interpretation Summary The estimated ejection fraction is 70 %. Diastolic function is indeterminate. The left atrium is mildly enlarged. Trivial mitral valve insufficiency. Moderate diffuse aortic valve thickening. Mild aortic stenosis. Trivial aortic valve insufficiency. STRESS TEST 02/13/2023: Perfusion SPECT analysis: Review of the stress images demonstrate normal uptake of tracer noted in all areas of the myocardium except for small portion of the apex with reduced perfusion. The resting images similarly demonstrate normal uptake of tracer noted in all areas of the myocardium. A small area of apical ischemia cannot be completely excluded and is suggested. Gated SPECT analysis: The gated ejection fraction is 63%. Conclusion: Abnormal exercise myocardial perfusion stress test at (more content not included)... Normal [facility] CREATININE FINGERSTICKon CREATININE WB < 1.0 Normal 0.70-1.30 [facility] Comment on above: Performed By: #### L 9100.0200 ####[facility] [id number] [place], [address] EGFR WB > 60.0000 Normal >60 [facility] Comment on above: Performed By: #### L 9100.0200 ####[facility] [id number] [place], [address] Coronary Angiography CTon Coronary Angiography CT [facility] Imaging Services [address] [place] [address] 08/28/24 1652 MR#: [id number] Acct: [id number] Name: BENEDICT FARLEY Rep #: [id number] : 1950 74 From: Vikas Flood MD PCP: Dr. Mamadou Ibarra MD Status:REG CLI Y Location: CT CCTA w/Cont Coronary Arteries Date of Study:: 08/28/24 HTN/Aortic stenosis Coronary Calcium Scoring: High-resolution Computed Tomographic imaging of the chest was performed on [08/28/2024], with particular attention paid to the coronary arteries. Intravenous contrast agent was administered per protocol and images reconstructed and displayed. LEFT MAIN CORONARY ARTERY: This arises from the left coronary cusp with mild calcification and bifurcates to left and descending artery left circumflex artery no significant stenosis noted in this vessel. Coronary calcium appears to be an extension of the aortic root. [] LEFT ANTERIOR DESCENDING CORONARY ARTERY: Medium size vessel with mild proximal eccentric calcification with mild stenosis. Total Agatston score is 36.6. [] LEFT CIRCUMFLEX CORONARY ARTERY: Nondominant circumflex artery with mild calcification noted proximally and no significant luminal stenosis noted. Total Agatston score was 14.5 [] RIGHT CORONARY ARTERY: Arises from the right coronary cusp with focal calcification noted in the proximal and mid segment. No high-grade stenosis is noted. Total Agatston score is 55.6 [] THORACIC AORTA: [] PULMONARY ARTERY: [] LEFT ATRIUM/APPENDAGE: [] MITRAL VALVE: [] AORTIC VALVE: Trileaflet valve with significant calcification [] LEFT VENTRICLE: Normal size [] CORONARY CALCIUM SCORE: 192 with percentile ranking between 25th and 50th percentile [] Conclusion: Trileaflet calcified aortic valve. Mild to moderate atherosclerotic plaquing with no high-grade stenosis noted in the 3 vessels. 08/28/24 1654 Date Vikas Flood MD Cosigner Signature (if applicable): Date CC: Dr. Tonny Armenta MD; Dr. Mamadou Ibarra MD; Dr. Vikas Flood MD Signed Normal [facility] Limited Chest CT Cardiac Onl yon 08-28-[address] Cardiac Only [facility] Imaging Services [address] [place] [id number] Cardiac Only MR#: [id number] Acct: [id number] Name: BENEDICT FARLEY Rep #: [id number] : 1950 M 74 From: Pasha james MD PCP: Dr. Mamadou Ibarra MD Status: [facility] Study: Limited Chest CT Cardiac Only Date of Exam: Exam# [id number] Ordering Dr: Tonny Armenta MD [id number] STUDY: CT CHEST WITH T WITHOUT CONTRAST REASON FOR EXAM: Male, 74 years old. AORTIC STENOSIS/HTN RADIATION DOSAGE (If Supplied By Facility): CTDIvol = ( 27.67 ) mGy, DLP = ( 1394.54 ) mGycm TECHNIQUE: Transaxial imaging was performed pre and post intravenous administration of 100 mL of Isovue-370. Cardiac Overread examination. Individualized dose optimization techniques were used for this CT. COMPARISON: No relevant priors. FINDINGS: CHEST The lungs are normal. There is no demonstrated pleural abnormality. There are calcifications of the coronary arteries. Calcification of the aortic valve. Normal mediastinum. Normal hilar regions. Normal unenhanced pulmonary arteries. Normal aorta arch and descending thoracic aorta. Normal osseous structures. Fatty infiltration of the liver. CT/Limited Chest CT Cardiac Only IMPRESSION: Coronary artery calcification. Calcification of the aortic valve. Electronically Signed: Pasha Patino MD at 9:21 EST , CC: Dr. Tonny Armenta MD; Dr. Mamadou Ibarra MD Sealer Sander: Signed Normal [facility] Carotid Duplex Ultrasoundon 08-21-2024 Carotid Duplex Ultrasound [facility] [address] [place] [address] Carotid Duplex Ultrasound 08/21/24 1254 MR#: [id number] Acct: [id number] Name: BENEDICT FARLEY Rep #: [id number] : 1950 74 From: Wilver Tilley MD Attending Dr: Dr. Tonny Armenta MD Status: REG CLI Ordering Dr: Tonny Armenta MD Date: 08/21/24 Location: [facility] Sex: M C Admitted: Reason For Study: Carotid bruit Rt. Velocities/BP Lt. Velocities/BP Prox CCA 103.5/13.9 cm/sec. Prox CCA 108.3/24.3 cm/sec. Mid CCA 91.2/13.9 cm/sec. Mid CCA 101/18.8 cm/sec. Dist CCA 83.9/16.3 cm/sec. Dist CCA 115.6/24.3 cm/sec. Prox ICA 60.8/15.7 cm/sec. Prox ICA 82.6/18.8 cm/sec. Mid ICA 76.2/23.4 cm/sec. Mid ICA 74/23.7 cm/sec. Dist ICA 61.9/12.4 cm/sec. Dist ICA 64.2/23.7 cm/sec. Rt. ICA/CCA = 0.84. Lt. ICA/CCA = 0.82. Prox ECA 102.3/7.7 cm/sec. Prox ECA 82.7/9.7 cm/sec. Rt. Vert. 44.3/11.3 cm/sec. Lt. Vert. 47/12.6 cm/sec. Right Extracranial There is intimal thickening but no significant atherosclerotic plaque noted in the right common carotid artery. There is heterogeneous, smooth atherosclerotic plaque noted in the right internal carotid artery. There is intimal thickening but no significant atherosclerotic plaque noted in the right external carotid artery. Antegrade flow is noted in the right vertebral artery. Left Extracranial There is intimal thickening but no significant atherosclerotic plaque noted in the left common carotid artery. There is heterogeneous, smooth atherosclerotic plaque noted in the left internal carotid artery. There is intimal thickening but no significant atherosclerotic plaque noted in the left external carotid artery. Antegrade flow is noted in the left vertebral artery. Procedure Carotid Duplex 89629. This is a Carotid Duplex examination using B-mode, color flow and specral Doppler. Exam performed in department. VL/Carotid Duplex Ultrasound Interpretation Summary Mild (<50%) stenosis right extracranial internal carotid. Mild (<50%) stenosis left extracranial internal carotid. Patent and antegrade vertebrals bilaterally. Ordering Physician: Tonny Armenta Referring Physician: Mamadou Ibarra MD Performed By: Mckayla Lane RVT 08/21/24 492 Date Wilver Tilley MD CC: Dr. Tonny Armenta MD; Dr. Mamadou Ibarra MD Date Dictated: 08/21/24 1254 Date Transcribed: 08/21/241753 Sealer Sander: Signed Normal [facility] Echo Completeon 08-21-2024 Echo Complete [facility] [place] [address] Echo Complete 08/21/24 1329 MR#: [id number] Acct: [id number] Name: BENEDICT FARLEY Rep #: [id number] : 1950 74 From: Vikas Flood MD Attending Dr: Dr. Tonny Armenta MD Status: REG CLI Ordering Dr: Tonny Armenta MD Date: 08/21/24 Location: [facility] Sex: M C Admitted: Reason For Study: OTHER Procedure This was a 2D Doppler, Color Flow transthoracic echocardiogram. Exam performed in department. Left Ventricle Normal LV size. Moderate concentric left ventricular hypertrophy. Left ventricular systolic function is normal. The left ventricular ejection fraction is 60 %. No regional wall motion abnormalities noted. Right Ventricle Normal RV size. Normal systolic function. Atria Normal left atrium. Normal right atrium. Mitral Valve Normal mitral valve. Mild (1+) eccentric mitral valve insufficiency. Tricuspid Valve Normal tricuspid valve. Mild tricuspid valve insufficiency. Pulmonary artery systolic pressure is 27 mmHg. Aortic Valve Trisinus/trileaflet aortic valve. Moderate focal aortic valve calcification. Peak aortic valve gradient 30 mmHg. Mean aortic valve gradient 15 mmHg. Mild to moderate aortic stenosis. Mild (1+) aortic valve insufficiency. Pulmonic Valve Normal pulmonic valve. Trivial pulmonic valve insufficiency. Great Vessels Normal aortic root. The pulmonary artery is normal size. Inferior vena cava collapse with respiration. Pericardium/Pleural No pericardial effusion. MMode/2D Measurements Calculations LVIDd: 4.4 cm IVSd: 1.5 cm LVOT diam: 2.0 cm LVIDs: 3.0 cm LVPWd: 1.5 cm LVOT area: 3.0 cm2 RVDd: 4.1 cm FS: 32.9 % _ asc Aorta Diam: 3.2 cm LAV(MOD-bp): 49.3 ml LVAd ap4: 27.8 cm2 LAV(MOD-bp) Indexed: 22.7 ml/m2 LVLd ap4: 8.2 cm LAV(MOD-sp2): 65.0 ml EDV(MOD-sp4): 76.9 ml LAV(MOD-sp4): 36.0 ml EDV(sp4-el): 79.7 ml LVAs ap4: 16.6 cm2 LVLs ap4: 7.2 cm ESV(MOD-sp4): 32.9 ml ESV(sp4-el): 32.7 ml EF(MOD-sp4): 57.3 % EF(sp4-el): 58.9 % _ SV(MOD-sp4): 44.0 ml SV(sp4-el): 46.9 ml LA A4 area: 14.4 cm2 SI(MOD-sp4): 20.2 ml/m2 _ RA A4 area: 15.7 cm2 Time Measurements MV dec time: 0.31 sec Doppler Measurements Calculations MV E max edd: 46.8 cm/sec Lat Peak E' Edd: 6.4 cm/sec Med Peak E' Edd: 4.9 cm/sec MV A max edd: 68.8 cm/sec E/E' lat: 7.3 E/E' med: 9.6 MV E/A: 0.68 _ Ao V2 max: 275.7 cm/sec AI max edd: 432.5 cm/sec MV dec slope: 150.3 cm/sec2 Ao max P.5 mmHg AI max P.9 mmHg Ao V2 mean: 181.6 cm/sec Ao mean P.3 mmHg AI dec slope: 146.0 cm/sec2 Ao V2 VTI: 63.6 cm AI P1/2t: 867.9 msec AV (velocity ratio): 0.53 TERRY(I,D): 1.6 cm2 TERRY(V,D): 1.6 cm2 _ LV V1 max: 146.6 cm/sec SV(LVOT): 103.2 ml PA V2 max: 111.2 cm/sec LV V1 max P.6 mmHg LV V1 mean P.7 mmHg LV V1 mean: 101.4 cm/sec LV V1 VTI: 33.9 cm _ TR max edd: 246.2 cm/sec TR max P.3 mmHg ECHO/Echo Complete Interpretation Summary Normal LV size. Moderate concentric left ventricular hypertrophy. Left ventricular systolic function is normal. The left ventricular ejection fraction is 60 %. Mild (1+) eccentric mitral valve insufficiency. Pulmonary artery systolic pressure is 27 mmHg. Mean aortic valve gradient 15 mmHg. Mild to moderate aortic stenosis. Ordering Physician: Tonny Armenta Referring Physician: Tonny Armenta Performed By: Debbie Garsia and Student 08/25/24929 Date Vikas Flood MD CC: Dr. Tonny Armenta MD; Dr. Mamadou Ibarra MD Date Dictated: 08/21/24 1329 Date Transcribed: 08/25/24929 Sealer Sander: Signed Normal [facility] Cardiology Visit Reporton Cardiology Visit Report [facility] [place] [address] [facility] [place] [address] OFFICE VISIT Date of Service: 07/28/24 MR#: [id number] Acct: [id number] Name: BENEDICT FARLEY Rep #: [id number] : 1950 Provider: Dr. Tonny Armenta MD Age/Sex: 74/M [place] [facility] [place]: Signed HPI HPI History of Present Illness Details: This gentleman with history of an abnormal cardiac stress test is here for follow-up visit. Denies any complaints. No chest pains. No shortness of breath. No palpitations. No orthopnea or PND. No ankle edema. 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 Accompanied by: Self Is patient in pain?: No Allergies monosodium glutamate (msg) Allergy (Intermediate, Verified 07/28/24 13:09) tongue swelling Medications ???Medication ???Instructions ???Recorded ???Confirmed ???Type aspirin 81 mg tablet,delayed 81 mg PO DAILY 05/04/23 07/28/24 History release multivitamin (Multiple Vitamins 1 tab PO DAILY 05/04/23 07/28/24 History tablet) lisinopril 10 mg tablet See Rx Instructions .Route 10/11/23 07/28/24 Rx .COMPLEX #180 tabs omeprazole 40 mg capsule,delayed 40 mg PO DAILY PRN 01/02/24 07/28/24 History release atorvastatin 20 mg tablet 40 mg PO QHS 07/28/24 07/28/24 History Ejection fraction %: 70 Have you fallen in the past year?: No PFSH Medical History Abnormal stress test Dyspepsia Essential hypertension Hyperlipidemia Family History Mother Heart disease Social History Smoking Status: Never smoker alcohol intake: current alcohol intake frequency: holidays/special occasions only substance use type: does not use ROS Const Const: Negative for fatigue, weakness, headache(s) or weight gain ENT ENT: Negative for headache(s), dizziness, Nosebleed/epistaxis or balance problems Cardio Chest Pain: No Palpitations: No Edema: None Muscle aches with walking: None Resp Respiratory: Negative for SOB with activity, SOB at rest or SOB orthopnea SOB lying down GI GI: Positive for heartburn; Negative nausea or vomiting Musc Musc: Negative for muscle aches/ myalgia, muscle weakness, joint pain or balance problems Neuro Neuro: Negative for dizziness, lightheadedness, near syncope, syncope, headache(s) or weakness Endo Endo: Negative for fatigue Cardiology Exam Const Appearance: comfortable and no acute distress Nutritional Appearance: well nourished Neck Neck: no JVD Carotids: bruit (Soft right carotid bruit) Chest Auscultation: Bilateral: Clear to Auscultation Cardio Rate: regular rate Rhythm: regular rhythm Heart sounds: S1 normal and S2 normal 3/6 systolic murmur at apex and base Neuro General: patient alert, patient awake and patient oriented x3 Extremities Lower Extremity Edema: None: Bilateral Supplemental Info Supplemental Information ECHOCARDIOGRAM 11/09/22: Interpretation Summary The estimated ejection fraction is 70 %. Diastolic function is indeterminate. The left atrium is mildly enlarged. Trivial mitral valve insufficiency. Moderate diffuse aortic valve thickening. Mild aortic stenosis. Trivial aortic valve insufficiency. ECHOCARDIOGRAM 10/10/19: Interpretation Summary Left ventricular systolic function is normal. The estimated ejection fraction is 65 %. The left atrium is mildly enlarged. Mild (1+) mitral valve insufficiency. Trivial tricuspid valve insufficiency. Aortic valve sclerosis/mild aortic valve stenosis Trivial aortic valve insufficiency. Trivial pulmonic valve insufficiency. Right ventricular systolic pressure estimated to be 19 mmHg. No evidence for diastolic dysfunction. STRESS TEST 02/13/23: Perfusion SPECT analysis: Review of the stress images demonstrate normal uptake of tracer noted in all areas of the myocardium except for small portion of the apex with reduced perfusion. The resting images similarly demonstrate normal uptake of tracer noted in all areas of the myocardium. A small area of apical ischemia cannot be completely excluded and is suggested. Gated SPECT analysis: The gated ejection fraction is 63%. Conclusion: Abnormal exercise myocardial perfusion stress test at a moderate workload with apical is (more content not included)... Normal [facility] Comprehensive Metabolic Prof ilon 04-21-2024 Albumin [Mass/Vol] 3.9 g/dL Normal 3.2-5.0 [facility] Comment on above: Order Comment: Order Date: 04/21/24 Order Info: [id number] - CMP Order Info: [id number] - LIPID Order Info: [id number] - PSA Performed By: #### L 501.9961, L500.1307, L500.4091 #### [facility] [address] [place], [place], [id number] Albumin/Globulin [Mass ratio] 1.1 {ratio} Normal 0.9-2.4 [facility] Comment on above: Order Comment: Order Date: 04/21/24 Order Info: 785- - CMP Order Info: [id number] - LIPID Order Info: [id number] - PSA Performed By: #### L 501.9910, L500.4100, L500.4050 #### [facility] [address] [place], [address] ALK P 98 U/L Normal 45-117 [facility] Comment on above: Order Comment: Order Date: 04/21/24 Order Info: 785- - CMP Order Info: - LIPID Order Info: [id number] - PSA Performed By: #### L 501.9910, L500.4100, L500.4050 #### [facility] [address] [place], [address] ALT [Catalytic activity/Vol] 61 U/L Normal 16-61 [facility] Comment on above: Order Comment: Order Date: 04/21/24 Order Info: [id number] - CMP Order Info: - LIPID Order Info: 285-1 - PSA Performed By: #### L 501.9910, L500.4100, L500.4050 #### [facility] [address] [place], [address] AST [Catalytic activity/Vol] 27 U/L Normal 15-37 [facility] Comment on above: Order Comment: Order Date: 04/21/24 Order Info: [id number] - CMP Order Info: - LIPID Order Info: 285-1 - PSA Performed By: #### L 501.9910, L500.4100, L500.4050 #### [facility] [address] [place], [address] Bilirubin [Mass/Vol] 0.80 mg/dL Normal 0.20-1.00 [facility] Comment on above: Order Comment: Order Date: 04/21/24 Order Info: 785- - CMP Order Info: - LIPID Order Info: [id number] - PSA Result Comment: For patients on eltrombopag therapy, use of Dimension [place] TBIL is not recommended. Performed By: #### L 501.9910, L500.4100, L500.4050 #### [facility] [address] [place], [address] BUN/CRE 19.3 RATIO Normal 10-20 [facility] Comment on above: Order Comment: Order Date: 04/21/24 Order Info: 785-1 - CMP Order Info: [id number] - LIPID Order Info: [id number] - PSA Performed By: #### L 501.9910, L500.4100, L500.4050 #### [facility] [address] [place], [address] CA,Total 9.1 mg/dL Normal 8.5-10.1 [facility] Comment on above: Order Comment: Order Date: 04/21/24 Order Info: 785- - CMP Order Info: [id number] - LIPID Order Info: [id number] - PSA Performed By: #### L 501.9910, L500.4100, L500.4050 #### [facility] [address] [place], [address] Chloride [Moles/Vol] 109 mmol/L High 98-107 [facility] Comment on above: Order Comment: Order Date: 04/21/24 Order Info: [id number] - CMP Order Info: [id number] - LIPID Order Info: [id number] - PSA Performed By: #### L 501.9910, L500.4100, L500.4050 #### [facility] [address] [place], [address] CO2 [Moles/Vol] 25.0 mmol/L Normal 21.0-32.0 [facility] Comment on above: Order Comment: Order Date: 04/21/24 Order Info: 07-1 - CMP Order Info: [id number] - LIPID Order Info: [id number] - PSA Performed By: #### L 501.9910, L500.4100, L500.4050 #### [facility] [address] [place], [address] Creatinine [Mass/Vol] 0.88 mg/dL Normal 0.70-1.30 [facility] Comment on above: Order Comment: Order Date: 04/21/24 Order Info: 785- - CMP Order Info: [id number] - LIPID Order Info: [id number] - PSA Result Comment: The validity of the calculated GFR GFRAA in patients over 70 years has not been determined. Clinical correlation is essential. Performed By: #### L 501.9910, L500.4100, L500.4050 #### [facility] [address] [place], [address] EST GFR - AA 109 mL/min Normal >60 [facility] Comment on above: Order Comment: Order Date: 04/21/24 Order Info: 785-09 - CMP Order Info: [id number] - LIPID Order Info: [id number] - PSA Result Comment: Afri can Afghan GFR Calc Performed By: #### L 501.9910, L500.4100, L500.4050 #### [facility] [address] [place], [address] GAP 5 Normal 5-15 [facility] Comment on above: Order Comment: Order Date: 04/21/24 Order Info: 07 - CMP Order Info: [id number] - LIPID Order Info: [id number] - PSA Performed By: #### L 501.9910, L500.4100, L500.4050 #### [facility] [address] [place], [address] GFR/1.73 sq M.predicted among non-blacks MDRD (S/P/Bld) [Vol rate/Area] 90 mL/min/{1.73_m2} Normal >60 [facility] Comment on above: Order Comment: Order Date: 04/21/24 Order Info: 07 - CMP Order Info: [id number] - LIPID Order Info: [id number] - PSA Result Comment: Non- GFR Calc Performed By: #### L 501.9910, L500.4100, L500.4050 #### [facility] [address] [place], [address] Globulin (S) [Mass/Vol] 3.5 g/dL Normal 2.2-4.2 [facility] Comment on above: Order Comment: Order Date: 04/21/24 Order Info: 0786 - CMP Order Info: [id number] - LIPID Order Info: [id number] - PSA Performed By: #### L 501.9910, L500.4100, L500.4050 #### [facility] [address] [place], [address] Glucose [Mass/Vol] 122 mg/dL High 74-106 [facility] Comment on above: Order Comment: Order Date: 04/21/24 Order Info: 0786 - CMP Order Info: [id number] - LIPID Order Info: [id number] - PSA Result Comment: Fast ing Glucose result from 100 to 125 mg/dL suggests IMPAIRED HOMEOSTASIS per A.D.A. criteria. Performed By: #### L 501.9910, L500.4100, L500.4050 #### [facility] [address] [place], [address] Potassium [Moles/Vol] 4.1 mmol/L Normal 3.5-5.1 [facility] Comment on above: Order Comment: Order Date: 04/21/24 Order Info: 0786- - CMP Order Info: [id number] - LIPID Order Info: [id number] - PSA Performed By: #### L 501.9910, L500.4100, L500.4050 #### [facility] [address] [place], [address] Sodium [Moles/Vol] 139 mmol/L Normal 136-145 [facility] Comment on above: Order Comment: Order Date: 04/21/24 Order Info: 0786- - CMP Order Info: [id number] - LIPID Order Info: 285-1 - PSA Performed By: #### L 501.9910, L500.4100, L500.4050 #### [facility] [address] [place], [address] T PROT 7.4 g/dL Normal 6.4-8.2 [facility] Comment on above: Order Comment: Order Date: 04/21/24 Order Info: 0786- - CMP Order Info: [id number] - LIPID Order Info: 285- - PSA Performed By: #### L 501.9910, L500.4100, L500.4050 #### [facility] [address] [place], [address] Urea nitrogen [Mass/Vol] 17 mg/dL Normal 7-18 [facility] Comment on above: Order Comment: Order Date: 04/21/24 Order Info: 0786 - CMP Order Info: [id number] - LIPID Order Info: [id number] - PSA Performed By: #### L 501.9910, L500.4100, L500.4050 #### [facility] [address] [place], [address] Lipid Profileon 04-21-2024 Cholesterol [Mass/Vol] 175 mg/dL Normal 200 [facility] Comment on above: Order Comment: Order Date: 04/21/24 Order Info: 0786- - CMP Order Info: [id number] - LIPID Order Info: [id number] - PSA Result Comment: <200 mg/dL Desirable 200-240 mg/dL Borderline >240 mg/dL High Risk Performed By: #### L 501.9910, L500.4100, L500.4050 #### [facility] [address] [place], [address] Cholesterol in HDL [Mass/Vol] 41 mg/dL Normal [facility] Comment on above: Order Comment: Order Date: 04/21/24 Order Info: 07 - CMP Order Info: - LIPID Order Info: [id number] - PSA Result Comment: The drugs N-Acetylcysteine and Metamizole may falsely depress this assay. Reference Range HDL <40 mg/dL Low HDL Cholesterol HDL >or= 60 mg/dL High HDL Cholesterol Performed By: #### L 501.9910, L500.4100, L500.4050 #### [facility] [address] [place], [address] Cholesterol in LDL [Mass/Vol] 102 mg/dL Normal 0-130 [facility] Comment on above: Order Comment: Order Date: 04/21/24 Order Info: [id number] - CMP Order Info: - LIPID Order Info: [id number] - PSA Performed By: #### L 501.9910, L500.4100, L500.4050 #### [facility] [address] [place], [place], [id number] Cholesterol in VLDL [Mass/Vol] 32 mg/dL Normal 5-40 [facility] Comment on above: Order Comment: Order Date: 04/21/24 Order Info: [id number] - CMP Order Info: - LIPID Order Info: [id number] - PSA Performed By: #### L 501.9910, L500.4100, L500.4050 #### [facility] [address] [place], [address] Triglyceride [Mass/Vol] 159 mg/dL Normal [facility] Comment on above: Order Comment: Order Date: 04/21/24 Order Info: [id number] - CMP Order Info: - LIPID Order Info: [id number] - PSA Result Comment: The drugs N-Acetylcysteine and Metamizole may falsely depress this assay. Serum Triglycerides Reference Interval Normal <150 mg/dL Borderline high 150 - 199 mg/dL High 200 - 499 mg/dL Very High > or = 500 mg/dL Performed By: #### L 501.9910, L500.4100, L500.4050 #### [facility] [address] [place], [place], [address] PSA,Total - Annual Screenon 04-21-2024 PSA,TOT SCREEN 3.85 ng/mL Normal 0.00-4.00 [facility] Comment on above: Order Comment: Order Date: 04/21/24 Order Info: 0786-1 - CMP Order Info: [id number] - LIPID Order Info: [id number] - PSA Result Comment: This test was performed using the TPSA assay method for the [employer] chemistry system. Values obtained with different assay methods cannot be used interchangably. When changing PSA assays in the course of monitoring a patient, additional sequential testing should be carried out to confirm baseline values. Performed By: #### L 501.9910, L500.4100, L500.4050 #### [facility] [address] [place], [address] Basophil percentageOrdered B y: Tonny Armenta on 05-24-2023 Chloride [Moles/Vol] 110 mmol/L 98-107 [facility] Glucose [Mass/Vol] 114 mg/dL 74-106 [facility] Comment on above: Fasting Glucose resu lt from 100 to 125 mg/dL suggests IMPAIRED HOMEOSTASIS per A.D.A. criteria. Potassium [Moles/Vol] 4.2 mmol/L 3.5-5.1 [facility] Sodium [Moles/Vol] 140 mmol/L 136-145 [facility] - Chemistry and C hemistry - challengeOrdered By: Tonny Armenta on 05-24-2023 CO2 [Moles/Vol] 26.0 mmol/L 21.0-32.0 [facility] Urea nitrogen/Creatinine [Mass ratio] 15.2 mg/mg 10-20 [facility] No Panel InformationOrdered By: Tonny Armenta on 05-24-2023 Estimated GFR (MDRD) Amer 104 mL/min >60 [facility] Comment on above: GFR Calc Estimated GFR (MDRD) Non-Af Amer 86 mL/min >60 [facility] Comment on above: Non- GFR Calc Thyroid Stimulating Hormone (TSH) 2.04 uIU/mL 0.358-3.74 [facility] Serum or plasma calcium christina urement (mass/volume)Ordered By: Tonny Armenta on 05-24-2023 Calcium [Mass/Vol] 8.7 mg/dL 8.5-10.1 [facility] Serum or plasma creatinine m easurement (mass/volume)Ordered By: Tonny Aremnta on 05-24-2023 Creatinine [Mass/Vol] 0.92 mg/dL 0.70-1.30 [facility] Comment on above: The validity of the calculated GFR & GFRAA in patients over 70 years has not been determined. Clinical correlation is essential. Serum or plasma urea nitroge n measurement (mass/volume)Ordered By: Tonnyenrique Armenta on 05-24-2023 Urea nitrogen [Mass/Vol] 14 mg/dL 7-18 [facility] Thin prep Papanicolaou smear with manual screeningOrdered By: Tonny Geovany on 05-24-2023 Thin prep Papanicolaou smear with manual screening 4 5-15 [facility] Absolute lymphocyte countOrd ered By: Italo Ibarra on 04-18-2023 Lymphocytes Auto (Unsp spec) [#/Vol] 1.19 10*3/uL 0.83-4.51 [facility] Basophil percentageOrdered B y: Italo Ibarra on 04-18-2023 Basophils/100 WBC (Bld) 1.1 % 0-1 [facility] Bilirubin [Mass/Vol] 0.60 mg/dL 0.20-1.00 [facility] Comment on above: For patients on eltr ombopag therapy, use of [employer] [place] TBIL is not recommended. Chloride [Moles/Vol] 108 mmol/L 98-107 [facility] Eosinophils/100 WBC (Bld) 1.8 % 0-5 [facility] Glucose [Mass/Vol] 120 mg/dL 74-106 [facility] Comment on above: Fasting Glucose resu lt from 100 to 125 mg/dL suggests IMPAIRED HOMEOSTASIS per A.D.A. criteria. Neutrophils (Bld) [#/Vol] 2.6 10*3/uL 2.0-7.7 [facility] Neutrophils/100 WBC (Bld) 57.4 % 47-70 [facility] Potassium [Moles/Vol] 4.3 mmol/L 3.5-5.1 [facility] Protein [Mass/Vol] 7.2 g/dL 6.4-8.2 [facility] Sodium [Moles/Vol] 140 mmol/L 136-145 [facility] WBC (Bld) [#/Vol] 4.5 10*3/uL 4.4-11.0 [facility] Blood erythrocytes count (nu mber/volume)Ordered By: Italo Ibarra on 04-18-2023 RBC (Bld) [#/Vol] 4.88 10*6/uL 4.6-6.2 [facility] Blood hemoglobin measurement (mass/volume)Ordered By: Italo Ibarra on 04-18-2023 Hemoglobin (Bld) [Mass/Vol] 14.8 g/dL 13.0-16.5 [facility] Blood lymphocytes/100 leukoc ytesOrdered By: Italo Ibarra on 04-18-2023 Lymphocytes/100 WBC (Bld) 26.7 % 19-41 [facility] Blood monocytes/100 leukocyt esOrdered By: Italo Ibarra on 04-18-2023 Monocytes/100 WBC (Bld) 12.8 % 0-10 [facility] Blood platelet mean volumeOr dered By: Italo Ibarra on 04-18-2023 Platelet mean volume (Bld) [Entitic vol] 11.1 fL 6.2-12.0 [facility] Determination of erythrocyte mean corpuscular volume (MCV)Ordered By: Italo Ibarra on 04-18-2023 MCV (RBC) [Entitic vol] 90.2 fL 80-94 [facility] Hematocrit Auto (Bld) [Volum e fraction]Ordered By: Italo Ibarra on 04-18-2023 Hematocrit (Bld) [Volume fraction] 44.0 % 40-54 [facility] - Chemistry and C hemistry - challengeOrdered By: Italo Ibarra on 04-18-2023 ALP [Catalytic activity/Vol] 82 U/L 45-117 [facility] ALT [Catalytic activity/Vol] 53 U/L 16-61 [facility] CO2 [Moles/Vol] 26.0 mmol/L 21.0-32.0 [facility] Globulin (S) [Mass/Vol] 3.4 g/dL 2.2-4.2 [facility] Urea nitrogen/Creatinine [Mass ratio] 14.6 mg/mg 10-20 [facility] - Hematology and Cell countsOrdered By: Italo Ibarra on 04-18-2023 Erythrocyte distribution width (RBC) [Entitic vol] 43.4 fL 35.1-43.9 [facility] Erythrocyte distribution width (RBC) [Ratio] 13.2 % 11.6-14.6 [facility] Immature granulocytes/100 WBC (Bld) 0.200 % 0.0-0.9 [facility] Comment on above: IG% - Immature Granu locytes (promyelocytes, myelocytes and metamyelocytes) > 1% indicates that a LEFT SHIFT is Present. MCH (RBC) [Entitic mass] 30.3 pg 27.0-32.0 [facility] Nucleated RBC/100 WBC (Bld) [Ratio] 0 % 0-5 [facility] MCHC Auto (RBC) [Mass/Vol]Or dered By: Italo Ibarra on 04-18-2023 MCHC (RBC) [Mass/Vol] 33.6 g/dL 32-36 [facility] No Panel InformationOrdered By: Italo Ibarra on 04-18-2023 Estimated GFR (MDRD) Amer 108 mL/min >60 [facility] Comment on above: GFR Calc Estimated GFR (MDRD) Non-Af Amer 89 mL/min >60 [facility] Comment on above: Non- GFR Calc Prostate Specific Antigen Screen 3.08 ng/mL 0.00-4.00 [facility] Comment on above: This test was perfor med using the TPSA assay method for the[employer] chemistry system. Values obtained with differentassay methods cannot be used interchangably.When changing PSA assays in the course of monitoring apatient, additional sequential testing should be carriedout to confirm baseline values. Platelets bldOrdered By: Jann Ibarra on 04-18-2023 Platelets (Bld) [#/Vol] 159 10*3/uL 150-450 [facility] Serum or plasma albumin christina urement (mass/volume)Ordered By: Italo Ibarra on 04-18-2023 Albumin [Mass/Vol] 3.8 g/dL 3.2-5.0 [facility] Serum or plasma albumin/glob ulin mass ratioOrdered By: Italo Ibarra on 04-18-2023 Albumin/Globulin [Mass ratio] 1.1 {ratio} 0.9-2.4 [facility] Serum or plasma calcium christina urement (mass/volume)Ordered By: Italo Ibarra on 04-18-2023 Calcium [Mass/Vol] 8.7 mg/dL 8.5-10.1 [facility] Serum or plasma creatinine m easurement (mass/volume)Ordered By: Italo Ibarra on 04-18-2023 Creatinine [Mass/Vol] 0.89 mg/dL 0.70-1.30 [facility] Comment on above: The validity of the calculated GFR & GFRAA in patients over 70 years has not been determined. Clinical correlation is essential. Serum or plasma urea nitroge n measurement (mass/volume)Ordered By: Italo Ibarra on 04-18-2023 Urea nitrogen [Mass/Vol] 13 mg/dL 7-18 [facility] Thin prep Papanicolaou smear with manual screeningOrdered By: Italo Ibarra on 04-18-2023 Thin prep Papanicolaou smear with manual screening 20 U/L 15-37 [facility] Thin prep Papanicolaou smear with manual screening 6 5-15 [facility] Vital Signs Date Time Vital Sign Value Performing Clinician Bro concepcion 02-04-2025 14:08-0400 Body height 180.[address] Mamadou Ibarra MD Work Phone: [facility] 02-04-2025 14:08-0400 Body mass index (BMI) [Ratio] 31.2 kg/m2 Dr. Mamadou Ibarra MD Work Phone: [facility] 02-04-2025 14:08-0400 Body weight 101.[address] Mamadou Ibarra MD Work Phone: [facility] 02-04-2025 14:08-0400 Diastolic blood pressure 78 mm[Hg] Dr. Mamadou Ibarra MD Work Phone: [facility] 02-04-2025 14:08-0400 Heart rate 53 /min Dr. Mamadou Ibarra MD Work Phone: [facility] 02-04-2025 14:08-0400 Respiratory rate 18 /min Dr. Mamadou Ibarra MD Work Phone: [facility] 02-04-2025 14:08-0400 Systolic blood pressure 129 mm[Hg] Dr. Mamadou Ibarra MD Work Phone: [facility] 05-16-2023 08:57-0400 Body weight 100.[address] Italo andrea Work Phone: [facility] 05-16-2023 08:57-0400 Diastolic blood pressure 80 mm[Hg] Dr. Italo Ibarra Work Phone: [facility] 05-16-2023 08:57-0400 Heart rate 43 /min Dr. Italo andrea Work Phone: [facility] 05-16-2023 08:57-0400 Respiratory rate 16 /min Dr. Italo andrea Work Phone: [facility] 05-16-2023 08:57-0400 Systolic blood pressure 139 mm[Hg] Dr. Italo Ibarra Work Phone: [facility] 05-16-2023 08:46-0400 Body height 180.[address] Italo andrea Work Phone: [facility] Encounters Encounter Date Encounter Type Care Provider Facility Start: 02-06-2025 End: 02-06-[address] Mamadou Ibarra MD Work Phone: [facility] Work Phone: Start: 02-06-2025 End: 02-06-[address] oTnny Armenta MD -[facility] Work Phone: Start: 02-06-2025 End: 02-06-2025 ambulatory Mamadou Ibarra Facility:[facility] Start: 02-04-2025 End: 02-04-[address] Tonny Armenta MD -[facility] Work Phone: Start: 02-04-2025 End: 02-04-[address] Mamadou Ibarra MD Work Phone: [facility] Work Phone: Start: 01-08-2025 ambulatory Mamadou Ibarra Faci lity:[facility] Start: 08-28-[facility] Start: 08-28-2024 End: 08-28-20[facility] Start: 08-21-2024 ambulatory [facility] Start: 08-21-2024 End: 08-21-2024 ambulatory Tonny Geovany Facility:[facility] Start: 07-28-2024 End: 07-28-2024 ambulatory Mamadou Ibarra Facility:[facility] Start: 04-21-2024 End: 04-21-2024 ambulatory Mamadou Ibarra Facility:[facility] Start: 05-24-2023 End: 05-24-[address] Italo Ibarra Work Phone: [facility] Work Phone: Start: 05-24-2023 End: 05-24-[address] Italo Ibarra Work Phone: [facility] Work Phone: Start: 05-16-2023 End: 05-16-[address] Italo Ibarra Work Phone: [facility] Work Phone: Start: 04-18-2023 End: 04-18-[address] Italo Ibarra Work Phone: [facility] Start: 02-13-2023 Non-patient / Non-visit Dr. Italo Ibarra Work Phone: [facility] Start: 02-13-2023 End: 02-13-[address] [facility] Work Phone: Start: 11-09-2022 Non-patient / Non-visit Dr. Italo Ibarra Work Phone: [facility] Start: 11-09-2022 End: 11-09-[address] Italo Ibarra Work Phone: [facility] Work Phone: Start: 11-09-2022 End: 11-09-[address] It[facility]bar[facility] Start: 11-03-2022 End: 11-03-2022 Non-patient / Non-visit Dr. Italo Ibarra Work Phone: [facility] Start: 11-03-2022 End: 11-03-[address] Italo Ibarra Work Phone: [facility]-Pulmonary Services/Neurology Procedures Date Procedure Procedure Detail Performing Clinician Start: 02-13-2023 Radionuclide imaging of perfusion of myocardium under exercise stress Dr. Italo Ibarra Work Phone: Payers Date Payer Category Payer Unknown [id number] 2024 Self-pay [id number] 2024 Medicare [id number] 2012 Private Health Insurance [employer] [id number] Unknown [id number] 2.16.8 [id number] Unknown [id number] 2.16.8 [id number] Unknown [id number] 2.16.8 [id number] Unknown [id number] 2.16.8 [id number] Unknown [id number] 2.16.8 [id number] Unknown [id number] 2.16.8 [id number] Unknown [id number] 2.16.8 [id number] Unknown [id number] 2.16.8 [id number] Unknown [id number] 2.16.8 [id number] Unknown [id number] 2.16.8 [id number] Social History Date Type Detail Facility Start: 06-27-2019 End: 05-16-2023 Tobacco smoking status GAIS Unknown if ever smoked [facility] Start: 1950 Sex Assigned At Male [facility] Start: 05-16-2023 Tobacco smoking stat us GAIS Never smoked tobacco (finding) [facility] Evaluation note 02-04-2025 Note Date & Type Note Facility 02-04-2025 Evaluation note Diagnosis Onset Date Resolution Aortic stenosis chronic February 04, 2025 1:35pm Carotid artery disease chronic Ma y 2024 1:35pm Coronary artery disease chronic M ay 2024 1:35pm Dyslipidemia chronic February 04 1:35pm Essential hypertension chronic Ma y 2024 1:35pm [facility] Work Phone: Progress note 02-04-2025 Note Date & Type Note Facility 02-04-2025 Progress note [facility] Progress note 02-04-2025 Note Date & Type Note Facility 02-04-2025 Progress note Note Date/Time February 04, 2025 2:24pm [facility] [address] [place] [address] OFFICE VISIT Date of Service: 02/04/25 MR#: [id number] Acct: [id number] Name: BENEDICT FARLEY Rep #: [id number] : 1950 Provider: Dr. Ranjit Armenta MD Age/Sex: 74/M Location: [facility] Status: Signed HPI HPI History of Present Illness Details: This pleasant gentleman with history of mild aortic valve stenosis, hypertensionand dyslipidemia is here for follow-up visit. For his mildly abnormal stress test, he has had coronary CT angio done as a follow-up. It showed mild to moderate CAD with no high-grade stenosis. Denies any complaints today. No chest pains. No shortness of breath. No palpitations. No orthopnea or PND. No lightheadedness or dizziness. No syncope or presyncope. Denies any ankle edema. 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 Accompanied by: Self Is patient in pain?: No Allergies monosodium glutamate (msg) Allergy (Intermediate, Verified 02/04/25 14:08) tongue swelling Medications ?Medication ?Instructions ?Recorded ?Confirmed ?Type aspirin 81 mg tablet,delayed 81 mg PO DAILY 05/04/23 0 02/04/25 History release multivitamin (Multiple Vitamins 1 tab PO DAILY 3 02/04/25 History tablet) omeprazole 40 mg capsule,delayed 40 mg PO DAILY PRN gi 01/02/24 02/04/25 History release lisinopril 10 mg tablet 20 mg (2 x 10 mg) PO DAILY # 180 08/13/24 02/04/25 Rx TABLETS atorvastatin 20 mg tablet 40 mg PO QDAY 02/04/2502/04 History Ejection fraction %: 60 Have you fallen in the past year?: No PFSH Medical History Abnormal stress test Dyspepsia Essential hypertension Hyperlipidemia Family History Mother Heart disease Social History Smoking Status: Never smoker alcohol intake: current alcohol intake frequency: holidays/special occasions only substance use type: does not use ROS Const Const: Negative for fatigue, weakness, headache(s) or weight gain ENT ENT: Negative for headache(s), dizziness, Nosebleed/epistaxis or balance problems Cardio Chest Pain: No Palpitations: No Edema: None Muscle aches with walking: None Resp Respiratory: Negative for SOB with activity, SOB at rest or SOB orthopneaundefinedSOB lying down GI GI: Negative nausea, vomiting or heartburn Musc Musc: Negative for muscle aches/ myalgia, muscle weakness, joint pain or balanceproblems Neuro Neuro: Negative for dizziness, lightheadedness, near syncope, syncope, headache(s) or weakness Endo Endo: Negative for fatigue Cardiology Exam Const Appearance: comfortable and no acute distress Nutritional Appearance: well nourished Neck Neck: no JVD Carotids: bruit (Soft right carotid bruit) Chest Auscultation: Bilateral: Clear to Auscultation Cardio Rate: regular rate Rhythm: regular rhythm Heart sounds: S1 normal and S2 normal 3/6 systolic murmur at apex and base Neuro General: patient alert, patient awake and patient oriented x3 Extremities Lower Extremity Edema: None: Bilateral Supplemental Info Supplemental Information Echocardiogram 08/21/2024: Interpretation Summary Normal LV size. Moderate concentric left ventricular hypertrophy. Left ventricular systolic function is normal. The left ventricular ejection fraction is 60 %. Mild (1+) eccentric mitral valve insufficiency. Pulmonary artery systolic pressure is 27 mmHg. Mean aortic valve gradient 15 mmHg. Mild to moderate aortic stenosis. ECHOCARDIOGRAM 11/09/2022: Interpretation Summary The estimated ejection fraction is 70 %. Diastolic function is indeterminate. The left atrium is mildly enlarged. Trivial mitral valve insufficiency. Moderate diffuse aortic valve thickening. Mild aortic stenosis. Trivial aortic valve insufficiency. STRESS TEST 02/13/2023: Perfusion SPECT analysis: Review of the stress images demonstrate normal uptake of tracer noted in all areas of the myocardium except for small portion of the apex with reduced perfusion. The resting images similarly demonstrate normal uptake of tracer notedin all areas of the myocardium. A small area of apical ischemia cannot be completely excluded and is suggested. Gated SPECT analysis: The gated ejection fraction is 63%. Conclusion: Abnormal exercise myocardial perfusion stress test at a moderate workload with apical ischemia Preserved ejection fraction. 24 Hour Holter Monitor 01/31/24: Average HR was 54 bpm in NSR/SBrady; Min HR was 38 bpm in Sinus Bradycardia; MaxHR was 99 bpm in NSR. There were a total of 2 ventricular ectopic beats. There were a total of 17 supraventricular ectopic beats. No runs noted. The longest R-R interval was 1.7 seconds. There was no Atrial Fibrillation. The patient kept a 24 hour diary with no symptoms recorded. Conclusion: 24 Hour Holter Monitor in NSR/Sinus Bradycardia with rare PVCs/PACs. Coronary Angiography CT Scan 08/28/2024: LEFT MAIN CORONARY ARTERY: This arises from the left coronary cusp with mild calcification and bifurcates to left and descending artery left circumflex artery no significant stenosis noted in this vessel. Coronary calcium appears to be an extension of the aortic root. LEFT ANTERIOR DESCENDING CORONARY ARTERY: Medium size vessel with mild proximal eccentric calcification with mild stenosis. Total Agatston score is 36.6. LEFT CIRCUMFLEX CORONARY ARTERY: Nondominant circumflex artery with mild calcification noted proximally and no significant luminal stenosis noted. TotalAgatston score was 14.5 RIGHT CORONARY ARTERY: Arises from the right coronary cusp with focal calcification noted in the proximal and mid segment. No high-grade stenosis is noted. Total Agatston score is 55.6 THORACIC AORTA: PULMONARY ARTERY: LEFT ATRIUM/APPENDAGE: MITRAL VALVE: AORTIC VALVE: Trileaflet valve with significant calcification LEFT VENTRICLE: Normal size CORONARY CALCIUM SCORE: 192 with percentile ranking between 25th and 50th percentile Conclusion: Trileaflet calcified aortic valve. Mild to moderate atherosclerotic plaquing with no high-grade stenosis noted in the 3 vessels. Carotid Duplex US 08/21/2024: Interpretation Summary Mild (<50%) stenosis right extracranial internal carotid. Mild (<50%) stenosis left extracranial internal carotid. Patent and antegrade vertebrals bilaterally. Assessment and Plan Assessment and Plan (1) Coronary artery disease: Status: Chronic Plan: Mild to moderate CAD on coronary CT angio. Continue aspirin. Risk factor modification. (2) Aortic stenosis: Status: Chronic Plan: Mild aortic valve stenosis. Periodic echo and clinical surveillance. (3) Dyslipidemia: Status: Chronic Plan: Atorvastatin. Repeat lipid profile. (4) Essential hypertension: Status: Chronic Plan: Continue lisinopril. (5) Carotid artery disease: Status: Chronic Plan: Mild carotid artery disease. Periodic clinical and ultrasound surveillance. Plan Details Follow Up: 6 Months Coding Level of Care Code Off vis,est,level 4 Diagnoses Coronary artery disease I25.10 Aortic stenosis I35.0 Dyslipidemia E78.5 Essential hypertension I10 Carotid artery disease I77.9 Coding Level of Care Code Off vis,est,level 4 Diagnoses Coronary artery disease I25.10 Aortic stenosis I35.0 Dyslipidemia E78.5 Essential hypertension I10 Carotid artery disease I77.9 Clinical Quality Measures Falls Risk Screening/Assistive Devices Have you fallen in the past year?: No Cardiac Ejection fraction %: 60 02/04/25 1424 <Electronically signed by Tonny Armenta MD> Date _ Tonny Armenta MD Cosigner Signature: Date (if applicable) CC: Dr. Mamadou Ibarra MD ~ [facility] Work Phone: Evaluation note Note Date & Type Note Facility Evaluation note No assessment information availa [facility] Work Phone: Evaluation note Note Date & Type Note Facility Evaluation note Diagnosis Onset Date Abnormal stress test chronic Aortic stenosis chronic Dyslipidemia chronic Essential hypertension chron ic Sinus bradycardia [facility] Work Phone: Evaluation note Note Date & Type Note Facility Evaluation note Diagnosis Onset Date Resolution Aortic stenosis chronic February 04, 2025 1:35pm Carotid artery disease chronic Ma y 2024 1:35pm Coronary artery disease chronic M ay 2024 1:35pm Dyslipidemia chronic February 04 1:35pm Essential hypertension chronic Ma y 2024 1:35pm [facility] Work Phone: Reason for referral (narrative) Note Date & Type Note Facility Reason for referral (narrative) No reason for referral information available [facility] Work Phone: Chief Complaint and Reason for Visit Chief Complaint Admit Date 6 M FU February 04, 2025 1:35p m EORDERS February 06, 2025 12:41 pm Reason for Visit Admit Date Aortic stenosis February 04, 2025 1:35p m Carotid artery disease February 04, 2025 1: 35pm Coronary artery disease February 04, 2025 1 :35pm Dyslipidemia February 04, 2025 1:35p m Essential hypertension February 04, 2025 1: 35pm Chief Complaint ANNUAL WELLNESS WELL CHECK DYSPENA Chief Complaint NONRHEUMATIC AORTIC INSUFFICIENCY NONRHEUMATIC AORTIC INSUFFICIENCY ABN STRESS (FRED) EORDER Reason for Visit Abnormal stress test Aortic stenosis Dyslipidemia Essential hypertension Sinus bradycardia Chief Complaint Admit Date 6 M FU February 04, 2025 1:35p m Reason for Visit Admit Date Aortic stenosis February 04, 2025 1:35p m Carotid artery disease February 04, 2025 1: 35pm Coronary artery disease February 04, 2025 1 :35pm Dyslipidemia February 04, 2025 1:35p m Essential hypertension February 04, 2025 1: 35pm Chief Complaint Admit Date 6 M FU February 04, 2025 1:35p m EORDERS February 06, 2025 12:41 pm Advance Directives Advance Directive Response Recorded Date/ Time Living Will Yes June 27 4:55pm Power of Faculty Neuropsychologist Yes June 27, 2019 4:55pm Advance Directive Response Recorded Date/ Time Living Will Yes June 27 5:55pm Power of Faculty Neuropsychologist Yes June 27, 2019 5:55pm Summary Purpose Family History No Family History Records Found Additional Source Comments Care Teams (unrecognized sec tion and content) Team Status: Active Member Role Status Dates Dr. Italo Ibarra MD Family Provider Active Dr. Italo Ibarra MD Primary Care Provider Activ e Team Status: Active Member Role Status Dates Dr. Italo Ibarra MD Primary Care Provider, Refe rring Provider Active Dr. Vikas Flood MD Attending Provider Active Team Status: Active Member Role Status Dates Dr. Italo Ibarra MD Primary Care Provider Activ e Dr. Kenroy Black MD Attending Provider Activ e Team Status: Inactive Member Role Status Dates Dr. Italo Ibarra MD Primary Care Provider, Atte nding Provider Active Team Status: Inactive Member Role Status Dates Dr. Italo Ibarra MD Primary Care Provider, Attending Provider, Referring Provider Active Team Status: Active Member Role Status Dates Dr. Italo Ibarra MD Primary Care Provider, Referring Provider, Other Provider Active Dr. Vikas Flood MD Attending Provider Active Team Status: Inactive Member Role Status Dates Dr. Italo Ibarra MD Primary Care Provider, Refe rring Provider Active Dr. Tonny Armenta MD Attending Provider Active Team Status: Inactive Member Role Status Dates Dr. Italo Ibarra MD Primary Care Provider Activ e Dr. Tonny Armenta MD Attending Provider Active Team Status: Active Member Role Status Dates Dr. Mamadou Ibarra MD Family Provider Active Dr. Mamadou Ibarra MD Primary Care Provider Acti ve Team Status: Inactive Member Role Status Dates Dr. Mamadou Ibarra MD Primary Care Provider Acti ve Start: February 04, 2025 End: February 04, 2025 Dr. Mamadou Ibarra MD Referring Provider Active Start: February 04, 2025 End: February 04, 2025 Dr. Tonny Armenta MD Attending Provider Active Start: February 04, 2025 End: February 04, 2025 Team Status: Inactive Member Role Status Dates Dr. Mamadou Ibarra MD Primary Care Provider Acti ve Start: February 06, 2025 End: February 06, 2025 Dr. Tonny Armenta MD Attending Provider Active Start: February 06, 2025 End: February 06, 2025 Dr. Tonny Armenta MD Referring Provider Active Start: February 06, 2025 End: February 06, 2025 Goals (unrecognized section and content) Goals may be documented in a n alternate sectionGoals may be documented in an alternate sectionGoals may be documented in an alternate sectionGoals may be documented in an alternate section (unrecognized sect ion and content) No Status Records Found INFORMATION SOURCE (unrecogn ized section and content) DATE CREATED AUTHOR 02/11/2025 [facility] FOR RECORDS PERTAINING TO PATIENTS WHO ARE OR HAVE BEEN ENROLLED IN A CHEMICAL DEPENDENCY/SUBSTANCEABUSE PROGRAM, SOME INFORMATION MAY BE OMITTED. This clinical summary was aggregated from multiple sources. Caution should be exercised in using it in the provision of clinical care. This summary normalizes information from multiple sources, and as a consequence, information in this document may materially change the coding, format and clinical context of patient data. In addition, data may be omitted in some cases. CLINICAL DECISIONS SHOULD BE BASED ON THE PRIMARY CLINICAL RECORDS. [email or web address] provides no warranty or guarantee of the accuracy or completeness of information in this document.
[2025-04-26 10:08] VITALS: BP 176/77; PULSE 48; RESP 16; TEMP 37; O2SAT 96
--- NOTE | 2025-04-26 17:09 | EDS_ITS ---
HPI History of Present Illness Chief Complaint: Back Narrative Narrative: Patient is a 74-year-old male presenting to the emergency department for left- sided back pain. Patient has a past medical history as below. Patient states that he has had back pain for the past few weeks. Denies any known injury but does help care for his at home and has to lift her in and out of bed. States that he followed up with his primary care doctor few days ago and he prescribed him a muscle relaxer that has been taking as well as stretches. States he is of not been helping. He denies any known trauma to his back. Denies any saddle anesthesia, bowel or bladder retention or incontinence, weakness or numbness in his legs, IV drug use, fevers or chills. States that the pain is exacerbated when he turns a certain way. [facility] Medical History Hyperlipidemia Dyspepsia Abnormal stress test Essential hypertension Home Medications ?Medication ?Instructions ?Recorded ?Last Taken ?Type aspirin 81 mg tablet,delayed 81 mg PO DAILY 05/04/23 0 04/25/25 History release lisinopril 10 mg tablet 20 mg (2 x 10 mg) PO DAILY # 180 08/13/24 04/25/25 Rx TABLETS atorvastatin 20 mg tablet 20 mg PO QDAY 02/04/2504/25 History oxycodone 5 mg capsule 5 mg PO Q8H PRN pain 4 days #12 04/26/25 Unknown Rx caps tizanidine 4 mg capsule 4 mg PO Q8H PRN muscle spast icity 04/26/25 Unknown Rx #20 caps tizanidine 4 mg tablet 4 mg PO TID PRN PRN muscle 0 04/26/25 04/25/25 History spasticity Allergy/AdvReac Type Severity Reaction Status Date / Time monosodium glutamate (msg) Allergy Intermediate tongue Verified 02/04/25 14:08 swelling Family History Mother Heart disease Social History Smoking Status: Never smoker alcohol intake: current alcohol intake frequency: holidays/special occasions only substance use type: does not use EXAM Physical Exam Narrative Exam Narrative: Vital signs: Reviewed General: Alert and oriented. No acute distress HEENT: Head is normocephalic and atraumatic, sinuses nontender, pupils equal round and reactive. Nares are patent. Oropharynx and throat exams normal. Neck: Supple without lymphadenopathy nontender. No midline cervical spinal tenderness to palpation. No step-offs or deformities. Cardiovascular: Regular rate and rhythm, no murmurs. No rubs or gallops. Normal S1 and S2 Respiratory: Clear to auscultation bilaterally. No wheezes, rales, rhonchi Abdominal: Soft and nontender. Normal bowel sounds. No guarding or rebound. Nonsurgical abdomen Extremities: No midline thoracic or lumbar spinal tenderness to palpation. No step-offs or deformities. No erythema to the back. There is left paraspinal lumbar tenderness to palpation. No SI joint tenderness to palpation. Normal range of motion in bilateral lower extremities. Normal sensation in bilateral lower extremities. Skin: No rash or redness. Neurological: Cranial nerves II through XII are grossly intact. Normal strength and sensation. Normal cerebellar function The rest of the physical exam is unremarkable Const Vital Signs: 04/26/25 08:53 04/26/25 08:58 04/26/25 10:08 Temperature 96.5 F L 98.6 F Temperature Source Temporal Oral Pulse Rate 101 H 48 L Respiratory Rate 18 16 Blood Pressure 205/65 H 179/71 H 176/77 H Blood Pressure Mean 111 107 110 Pulse Ox 98 96 Oxygen Delivery Method Room Air Room Air MDM MDM MDM Narrative Medical decision making narrative: Patient is a 74-year-old male presenting to emergency department for back pain. Patient was seen and examined. Vitals are stable. Initially is mildly hypertensive however he does have a history of hypertension and he is in pain. Resting in chair. No acute distress. Differential includes but is not limited to: MSK back pain, sciatica, less likely infectious including epidural spinal abscess less likely spinal cord pathology including cauda equina Considered abdominal causes of the pain including kidney stones however the pain is much lower than CVA tenderness. Patient has no midline spinal tenderness to palpation, no indication for imaging. He is had no red flag back pain signs. No recent weight loss or cancer history. States that the pain is worse when he moves a certain way and he has been doing a lot of lifting at home for his . No radiation down the leg to indicate sciatica. Given patient has been taking Advil, Tylenol, muscle relaxers and has been using Lidoderm patches I will prescribe the patient a short dose of Oxy. Patient discharged from the Emergency Department. I do not feel that the patient's evaluation reveals any acute reason for admission at this time. I instructed them to either follow-up with their primary care physician or promptly return to the Emergency Department for reevaluation should symptoms worsen or new symptoms develop. I explained what symptoms would indicate the need to return to the emergency department. Shared decision making was used. The patient voiced understanding of the treatment plan and is agreeable with it. Clinical impression Musculoskeletal back pain History & Record Review Discussion w/independent historian: Patient and Family Discharge Plan Triage Chief Complaint: Back ED Provider: Mariaelena Clemente Dx/Rx/DC Orders Clinical Impression: Back pain Instructions: Back Safety: Lifting, Back Exercises: Seated Rotation, Back Exercises: Knee Lift, Back Exercises: Lower Back Stretch, ED Back Exercises, Lumbar, ED Back Pain (Acute or Chronic) Prescriptions: New tizanidine 4 mg capsule 4 mg PO Q8H PRN (Reason: muscle spasticity) Qty: 20 0RF oxycodone 5 mg capsule 5 mg PO Q8H PRN (Reason: pain) 4 Days Qty: 12 0RF No Action aspirin 81 mg tablet,delayed release (DR/EC) 81 mg PO DAILY atorvastatin 20 mg tablet 20 mg PO QDAY tizanidine 4 mg tablet 4 mg PO TID PRN PRN (Reason: muscle spasticity) lisinopril 10 mg tablet 20 mg PO DAILY Qty: 180 3RF Primary Care Provider: Mamadou Ibarra Referrals: Mamadou Ibarra MD [Primary Care Provider] - 2 Days Activity Restrictions/Additional Instructions: Please take the medications as prescribed. Try the stretches at home as well. Your evaluation in the Emergency Department did not reveal any acute reason for admission. However, I want to emphasize that you may be early in the course of a disease process or illness even if it is not present. For this reason you should follow-up within 24 hours for reevaluation with either your primary care physician or if necessary back here in the Emergency Department. You should return to the Emergency Department immediately if your symptoms worsen or new symptoms develop. Print Language: Croatian Disposition Disposition: Home, Self Care Discharge Date/Time: 04/26/25 10:18
== END 2025-04-26 10:18 | disposition home or self-care (01) ==
PROVIDERS: Emergency Provider Student in an Organized Health Care Education/Training Program; PCP Family Medicine; Visit Provider Student in an Organized Health Care Education/Training Program
DX: M54.50 Low back pain, unspecified (principal); I10 Essential (primary) hypertension; Z79.899 Other long term (current) drug therapy
CPT/HCPCS: 99282

== ENCOUNTER → 2025-04-30 | Outpatient (CLI) | payer MEDICARE, SELFPAY ==
--- NOTE | 2025-04-30 13:50 | RAD_ITS ---
PROCEDURE: L/S SPINE MIN 4 VIEWS 04/30/2025 REASON FOR EXAM: BACK PAIN TECHNIQUE: L/S SPINE MIN 4 VIEWS FINDINGS: No evidence of acute fracture or dislocation. Moderate degenerative changes of the spine. [id number]-[id number] lower lumbar facet arthropathy. Normal alignment. Vertebral body heights are maintained. RAD/L/S Spine Min 4 Views IMPRESSION: Spondylosis. Reading Location: [id number]
== END | disposition home or self-care (01) ==
LOC: MTRAD 13:46
PROVIDERS: PCP Family Medicine; Referring Provider Family Medicine; Visit Provider Family Medicine
DX: M54.9 Dorsalgia, unspecified (principal)
CPT/HCPCS: 72110

== ENCOUNTER 2025-06-18 11:30 | Outpatient (RCR) | payer MEDICARE, SELFPAY ==
--- NOTE | 2025-05-20 14:30 | HP.PTEVAL_ITS ---
Patient's Visit Information Visit Information Visit Information: BENEDICT FARLEY is a 74 year old M referred to Physical Therapy by Dr. Mamadou Griffiths MD with a diagnosis of BACK PAIN. Date of Evaluation: 05/20/25 Physical Therapist: Dorothy Buchanan PT, Cert MDT Visit Plan Frequency: 2x /Week Duration: 4-6 Weeks Plan: FOCUS ON WRITTEN HEP. POSTURE CORRECTION/STRENGTHENING, INSTRUCTION IN APPROPRIATE BODY MECHANICS AND ACTIVITY MODIFICATIONS. DLS STARTING WITH A NEUTRAL SPINE PROGRESSING ROM TOLERATED. CHRISTIANO LE ROM, STRETCHING AND STRENGTHENING. HEP INSTRUCTION. 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 Present symptoms: CHRISTIANO LOW BACK PAIN L>R. PATIENT DENIES CHRISTIANO LE SX'S. Present since: CHRONIC X 4-5 YEARS WITH LAST EPISODE STARTING ABOUT 5 WKS AGO Pain Scale: CURRENTLY NO PAIN FOR ABOUT A WEEK BUT HAS NOT BEEN VERY ACTIVE DUE TO RECENT EPISODE. Is it getting better, worse or staying the same: GETTING BETTER Commenced as a result of: NO APPARENT REASON BUT HAD BEEN DOING SOME BRUSH CUTTING FOR A COUPLE WEEKS. Symptoms at onset: LOW BACK Worse at onset: BENDING AND TWISTING, TRYING TO GET OUT OF BED, PROLONGED WALKING. Better at onset: PREDNISONE, OTC TYLONOL, LYING, SITTING Disturbed sleep: NO Previous history/Previous treatment: 4-5 YEARS OF EPISODIC LOW BACK PAIN SELF TREATED WITH OTC MUSCLE RUB. Treatment this episode: PREDNISONE, DR. GRIFFITHS AND ONE ED VISIT. Coughing/sneezing/straining: NEGATIVE FOR PAIN. Gait: ABLE TO WALK AVERAGE DISTANCES BUT I HAVEN'T PUSHED IT. Bowel or Bladder Dysfunction: NO Accidents: NO Unexplained weight loss: NO Imaging: LUMBAR X-RAY 04/30/25: TECHNIQUE: L/S SPINE MIN 4 VIEWS FINDINGS: No evidence of acute fracture or dislocation. Moderate degenerative changes of the spine. Vhlmyiqk-fa-[id number] lower lumbar facet arthropathy. Normal alignment. Vertebral body heights are maintained. RAD/L/S Spine Min 4 Views IMPRESSION: Spondylosis. PMH/Recent major surgery: HTN, HIGH CHOLESTROL. Objective Objective: Sitting/Standing Posture: REDUCED LUMBAR LORDOSIS. NO RELEVANT LATERAL LUMBAR SHIFT. Other Observations: THIS PATIENT AMBULATES INDEP'LY INTO PT WITHOUT ANY AD'S WITH FAIR CADANCE, DECREASED TRUNK ROTATION, GUARDED GAIT AND TRANSFERS. Sensory deficit: CHRISTIANO LE LIGHT TOUCH SENSATION IS GROSSLY INTACT AND SYMMETRICAL ROM deficit: CHRISTIANO HS AND CALF TIGHTNESS. CHRISTIANO HIP IR/ER TIGHTNESS L>R. Motor deficit: CHRISTIANO HIPS 4/5, KNEES 5/5, ANKLES 5/5 Dural Signs: NEGATIVE CHRISTIANO LE'S. Lumbar mvmt loss: flex - MOD ext - PEYTON R SG - PEYTON L SG - PEYTON PATIENT DENIES PAIN WITH STRENGTH, EXTREMITY AND LUMBAR ROM TESTING TODAY. Core strength: FAIR Palpation: NO ACUTE LOWER THORACIC OR LUMBAR TENDERNESS. INCREASED MUSCLE TONE CHRISTIANO PARASPINALS. Balance/Special Test Scores Oswestry Low Back Score: 2 Goals Goal 1:: PATIENT WILL BE ABLE TO COMMUNICATE PROPER ACTIVITY MODIFICATIONS TO INDEP'LY MANAGE BACK PAIN AND MINIMIZE FURTHER INJURY. Goal Time Frame: 4-6 Weeks Goal 2:: PATIENT WILL DEMONSTRATE PROPER POSTURE CONTROL IN SITTING AND STANDING TO MINIMIZE BACK PAIN. Goal Time Frame: 4-6 Weeks Goal 3:: PATIENT WILL DEMONSTRATE KNOWLEDGE OF PROPER BODY MECHANICS FOR ADL'S TO DECREASE STRESS ON THE BACK AND MINIMIZE RISK OF FURTHER INJURY AND PAIN. Goal Time Frame: 4-6 Weeks Goal 4:: PATIENT WILL BE INDEP WITH APPROPRIATE STRENGTHENING EX'S TO ASSIST WITH STABILIZATION AND MOVEMENT OF THE SPINE. Goal Time Frame: 4-6 Weeks Goal 5:: PATIENT WILL BE INDEP WITH APPROPRIATE STRETCHING EX'S TO DECREASE STRESS ON THE SPINE. Goal Time Frame: 4-6 Weeks Goal 6:: PATIENT WILL REPORT RETURN TO PLOF WITH 0-2/10 LBP. Goal Time Frame: 4-6 Weeks Rehabilitation Potential Physical Therapy Diagnosis: CORE AND LE WEAKNESS AND STIFFNESS WITH RECENT EPISODE OF SEVERE BACK PAIN LIMITING NORMAL ADL'S. POSITIVE FINDINGS ON RECENT APR 2025 LUMBAR X-RAY: Moderate degenerative changes of the spine. Rvlzfjdg-[id number] lower lumbar facet arthropathy. Rehabilitation Potential: Good Anticipated Interventions Patient/Client Instruction: Educate patient on: Condition, Plan of Care and Risk Factors For the Purpose of:: To improve self management Therapeutic Exercise to Include: Strength training, Body mechanics, Postural t raining, Flexibilty training, Neuromotor development, In an aquatic setting and Dynamic Lumbar Stabilization For the Purpose of:: To increase ROM, To improve nutrient delivery to tissue, To improve muscle performance and motor function, To improve ability of physical actions for home/community/work/leisure, To increase flexibility/ROM, To reduce risk of recurrence and To improve self management Text: Thank you for the opportunity to evaluate your patient. For Medicare and Medicare HMO plans, please review the plan of care and approve it. It will need to be FAXED BACK to us at [phone] for Medicare purposes. For Medicare only, by signing this I certify the plan of care. Please let me know if there are questions or concerns regarding this plan of care. Physician Signature: Date:
--- NOTE | 2025-06-18 13:01 | HP.PTDCSUM ---
Discharge Summary D/C summary: It has been my pleasure to treat BENEDICT FARLEY referred by Dr. Mamadou Ibarra MD, with the diagnosis of BACK PAIN for a total of 7 visit(s). Discharge Date: 06/18/25 Please see the following information for a summary of their discharge status. Subjective Subjective: PATIENT REPORTS HIS R PEC FLARED UP FOR NO APPARENT REASON THE DAY AFTER A PT SESSION. HE STATES IT WAS GETTING BETTER UNTIL LAST NIGHT. HE ALSO REPORTS SOME NEW L HIP PAIN FOR A FEW DAYS BUT THAT HAS GONE AWAY AND HE HASN'T HAD THAT FOR ABOUT A WEEK NOW. PATIENT REPORTS HE HAD TO GO DOWNSTAIRS TO GET SOMETHING FOR HIS LAST NIGHT ABOUT 5 PM AND HE GOT TO THE TOP OF THE STAIRS HIS PEC FLAIRED BACK UP AGAIN. HE STATES AFTER TAKING ALEVE AND PUTTING ICE ON HIS PEC PLUS USING MUSCLE CREAM IT SETTLED DOWN. STATES NO PAIN TODAY. ABLE TO GET OUT OF BED, DO CHORES AND OTHER NORMAL ADL'S PAINFREE TODAY. DESPITE ALL THIS HE REPORTS HIS BACK HAS BEEN FINE. HE STATES HE FEELS IF HE GIVES HIS PEC SOME TIME TO HEAL AND THEN CAN GET BACK TO ALL OF HIS EX'S HE WILL DO GOOD. Pain LB: Pain Intensity (Out of 10): 0 R PEC: Pain Intensity (Out of 10): 0 L HIP: Pain Intensity (Out of 10): 0 Overall Improvement % Improvement: 95 Objective Objective/Function: PATIENT WAS SEEN TODAY FOR RE-ASSESSMENT OF PROGRESS TOWARD THE SET PT GOALS AND THE NEED FOR FURTHER PHYSICAL THERAPY VS READINESS FOR DISCHARGE. ALL GOALS FOR PATIENTS BACK HAVE BEEN MET AT THIS TIME HOWEVER HE IS LIMITED IN DOING SOME OF HIS HEP DUE TO R PEC PAIN. PATIENT AND THERAPIST ARE HOPEFUL THAT HE WILL BE ABLE TO RESUME ALL EX'S R PEC PAIN RESOLVES. PATIENT IS APPROPRIATE FOR DISCHARGE FROM PT FOR HIS BACK AND PHYSICIAN FOLLOW RECOMMENDED FOR PEC NEEDED AND PATIENT AGREEABLE. Goals Goal 1:: PATIENT WILL BE ABLE TO COMMUNICATE PROPER ACTIVITY MODIFICATIONS TO INDEP'LY MANAGE BACK PAIN AND MINIMIZE FURTHER INJURY. Goal Progress: Goal Met Goal 2:: PATIENT WILL DEMONSTRATE PROPER POSTURE CONTROL IN SITTING AND STANDING TO MINIMIZE BACK PAIN. Goal Progress: Goal Met Goal 3:: PATIENT WILL DEMONSTRATE KNOWLEDGE OF PROPER BODY MECHANICS FOR ADL'S TO DECREASE STRESS ON THE BACK AND MINIMIZE RISK OF FURTHER INJURY AND PAIN. Goal Progress: Goal Met Goal 4:: PATIENT WILL BE INDEP WITH APPROPRIATE STRENGTHENING EX'S TO ASSIST WITH STABILIZATION AND MOVEMENT OF THE SPINE. Goal Progress: Goal Met Goal 5:: PATIENT WILL BE INDEP WITH APPROPRIATE STRETCHING EX'S TO DECREASE STRESS ON THE SPINE. Goal Progress: Goal Met Goal 6:: PATIENT WILL REPORT RETURN TO PLOF WITH 0-2/10 LBP. Goal Progress: Goal Met Plan Plan: D/C TO INDEP EX AND PHYSICIAN FOLLOW UP NEEDED. D/C Information d/c sentence: If there are questions or concerns regarding this patient's physical therapy, please feel free to call me at [phone]. Thank you for the referral of this patient. Sincerely, Dorothy Buchanan, PT, Cert MDT Balance/Gait/Functional tests Balance/Special Test Scores Oswestry Low Back Score: 2 Improvement % Improvement: 95
== END 2025-06-18 19:00 | disposition home or self-care (01) ==
LOC: PT 11:30
PROVIDERS: PCP Family Medicine; Referring Provider Family Medicine; Visit Provider Family Medicine
DX: M54.9 Dorsalgia, unspecified (principal)
CPT/HCPCS: 97035; 97110; 97162; 97530

== ENCOUNTER → 2025-06-27 | Outpatient (CLI) | payer MEDICARE, SELFPAY ==
--- OUTSIDE RECORDS SUMMARY | 2025-06-27 09:36 | XMS RPT_ITS | CCD ---
Author Organization [facility] Care Team Providers Care Recreation Specialist Name Role Phone Dr. Italo Ibarra Primary Care Provider [phone] Dr. Italo Ibarra Referring Provider Dr. Vikas Flood Attending Provider [phone] Kenroy Black Attending Provider [phone] Dr. Italo Ibarra Primary Care Provider [phone] Dr. Italo Ibarra Referring Provider Dr. Italo Ibarra Other Provider Dr. Vikas Flood Attending Provider Dr. Tonny Armenta Attending Provider Fred DAS, Dr. Cedillo Primary Care Provider Dr. Mamadou Ibarra MD Referring Provider [phone] Geovany DAS, Dr. Lancaster Attending Provider Geovany DAS, Dr. Lancaster Referring Provider Dr. Mariaelena Clemente MD Emergency Provider Unavailab Yuli DAS, Dr. Ferrell Attending Provider Unavailab Dr. Mamadou Page MD Attending Provider Mamadou Ibarra Primary Care Unavailable Vikas Flood Attending Unavailable Mamadou Ibarra Primary Care Unavailable Wilver Tilley Attending Unavailable Tonny Armenta Referring Unavailable Mamadou Ibarra Primary Care Unavailable Mamadou Ibarra Referring Unavailable Tonny Armenta Attending Unavailable Mamadou Ibarra Referring Unavailable Geovany, Tonny Attending Unavailable [place] [place] Unavailable Ranney, Christopher Referring Unavailable Geovany, Tonny Attending Unavailable [place], [facility] Unavailable Geovany, Tonny Consulting Unavailable Geovany, Tonny Referring Unavailable Vikas Flood Attending Unavailable [place], [facility] Unavailable Geovany, Tonny Attending Unavailable Geovany, Tonny Referring Unavailable [place], [facility] Unavailable Ranney, Christopher Referring Unavailable Ranney, Christopher Attending Unavailable [place], [facility] Unavailable [facility], [facility] Referring Unavailable Ranney, Christopher Attending Unavailable Geovany, Tonny Referring Unavailable [place], [facility] Unavailable Geovany, Tonny Attending Unavailable Geovany, Tonny Referring Unavailable Geovany, Tonny Attending Unavailable [place], [facility] Unavailable [place], [facility] Unavailable Mariaelena Clemente Attending Unavailable Allergies Allergy Classification Reported Allergen(s) Allergy Type Date of Onset Reaction(s) Facility (4 sources) Glutamate Drug Allergy 5 tongue swelling [facility] (1 source) monosodium glutamate Drug allergy (disorder) 5 [facility] Repository Medications Current Medications Medication Drug Class(es) Dates Sig (Normalized) Sig (Original) aspirin 81 mg delayed release oral tablet (5 sources) Platelet Aggregation Inhibitor, Nonsteroidal Anti-inflammatory Drug Start: 05-04-2023 take 1 tablet by mouth once daily Aspirin 81 mg tablet,delayed release (DR/EC) Active 81 mg PO DAILY May 04, 2023 12:00am atorvastatin 20 mg oral tablet (14 sources) HMG-CoA Reductase Inhibitor Start: 02-04-2025 take 1 tablet by mouth once daily Atorvastatin 20 mg tablet Active 20 mg PO daily February 04, 2025 2:07pm Start: 07-28-2024 End: 02-04-2025 take 2 tablets by mouth at bedtime Atorvastatin 20 mg tablet Discontinued 40 mg PO AT BEDTIME July 28, 2024 2:09pm February 04, 2025 2:07pm Start: 09-16-2016 End: 07-28-2024 take 1 tablet by mouth at bedtime Atorvastatin 20 MG tablet Discontinued 20 mg PO AT BEDTIME September 16, 2016 1:00am July 28, 2024 2:10pm oxyCODONE hydrochloride 5 mg oral capsule (2 sources) Opioid Agonist Start: 04-26-2025 take 1 capsule by mouth every eight hours as needed for pain Oxycodone 5 mg capsule Active 5 mg PO Q8H as needed for pain 12 4 0 April 26, 2025 Back pain Dorsalgia, unspecified tiZANidine 4 mg oral tablet (4 sources) Central alpha-2 Adrenergic Agonist Start: 04-26-2025 take 1 tablet by mouth three times daily as needed Tizanidine 4 mg tablet Active 4 mg PO 3 TIMES DAILY NEEDED as needed for muscle spasticity April 26, 2025 12:00am Start: 04-26-2025 take 1 capsule by mo ut every eight hours as needed Tizanidine 4 mg capsule Active 4 mg PO Q8H as needed for muscle spasticity 20 0 April 26, 2025 12:00am Completed/Discontinued Medications Medication Drug Class(es) Dates Sig (Normalized) Sig (Original) amoxicillin 875 mg / clavulanate 125 mg oral tablet (6 sources) Penicillin-class Antibacterial Start: 06-27-2019 End: 05-04-2023 Amoxicillin-Pot Clavulanate 1 EACH tablet Discontinued 1 NMA PO TWICE A DAY 14 0 June 27, 2019 12:00am May 04, 2023 2:23pm Start: 06-27-2019 End: 05-04-2023 Amoxicillin-Pot Clavulanate Discontinued 1 EACH PO TWICE A DAY 14 June 27, 2019 12:00am May 04, 2023 2:23pm lisinopril 10 mg oral tablet (20 sources) Angiotensin Converting Enzyme Inhibitor Start: 05-16-2023 End: 08-13-2024 Lisinopril 10 mg tablet Discontinued 0 .ROUTE .COMPLEX 180 3 October 11, 2023 1:37pm August 13, 2024 8:52am TAKE 2 TABLETS EVERY DAY Start: 05-16-2023 End: 05-16-2023 take 20 mg by mouth once daily Lisinopril Active 20 MG PO DAILY 90 May 16, 2023 2:05pm Start: 06-27-2019 End: 05-16-2023 take 1 tablet by mouth once daily Lisinopril 10 MG tablet Discontinued 10 mg PO DAILY June 27, 2019 12:00am May 16, 2023 9:08am Multivitamin (Multiple Vitamins) 1 EACH tablet (6 sources) Start: 11-23-2016 End: 05-04-2023 take 1 [...] EACH PO DAILY November 22, 2016 11:00pm Multivitamin (Multiple Vitam ins) tablet (5 sources) Start: 05-04-2023 End: 04-26-2025 Multivitamin (Multiple Vitamins) tablet Discontinued 1 {tbl} PO DAILY May 04, 2023 2:24pm April 26, 2025 9:39am Start: 05-04-2023 Multivitamin ( Multiple Vitamins) tablet Active 1 {tbl} PO DAILY May 04, 2023 2:24pm Start: 05-04-2023 take 1 tablet by chandrika th once daily Multivitamin (Multiple Vitamins) tablet Active 1 TABLET PO DAILY May 04, 2023 2:24pm omeprazole 40 mg delayed release oral capsule (9 sources) Proton Pump Inhibitor Start: 05-04-2023 End: 04-26-2025 take 1 capsule by mouth once daily as needed Omeprazole 40 mg capsule,delayed release(DR/EC) Discontinued 40 mg PO DAILY as needed for gi January 02, 2024 2:58pm April 26, 2025 9:39am Problems Active Problems Problem Classification Problem Date Documented Date Episodic/Chronic Cardiac dysrhythmias (6 sources) Sinus bradycardia; Translations: [Bradycardia, unspecified] 05-16-2023 Episodic Coronary atherosclerosis and other heart disease (8 sources) Coronary arteriosclerosis; Translations: [Atherosclerotic heart disease of [place] coronary artery without angina pectoris] 02-04-2025 Chronic Disorders of lipid metabolism (17 sources) Dyslipidemia; Translations: [Hyperlipidemia, unspecified] Onset: 07-28-2024 05-16-2023 Chronic Essential hypertension (12 sources) Essential hypertension; Translations: [Essential (primary) hypertension] Onset: 10-02-2024 05-16-2023 Chronic Heart valve disorders (12 sources) Aortic valve stenosis; Translations: [Nonrheumatic aortic (valve) stenosis] Onset: 10-02-2024 05-16-2023 Chronic Noninfectious gastroenteritis (6 sources) Colitis; Translations: [Noninfective gastroenteritis and colitis, unspecified] 06-28-2019 Episodic Other circulatory disease (8 sources) Disorder of carotid artery; Translations: [Disorder of arteries and arterioles, unspecified] 02-04-2025 Chronic Other circulatory disease (4 sources) Carotid bruit; Translations: [Other specified symptoms and signs involving the circulatory and respiratory systems] 07-28-2024 Episodic Spondylosis; intervertebral disc disorders; other back problems (5 sources) Backache; Translations: [Dorsalgia, unspecified] Onset: 05-06-2025 04-26-2025 Episodic Past or Other Problems Problem Classification Problem Date Documented Date Episodic/Chronic Other circulatory disease (1 source) Other specified symptoms and signs involving the circulatory and respiratory systems; Translations: [Other specified symptoms and signs involving the circulatory and respiratory systems] Onset: 07-28-2024 Episodic Other screening for suspected conditions (not mental disorders or infectious disease) (8 sources) Cardiovascular stress test abnormal; Translations: [Abnormal result of other cardiovascular function study] Onset: 07-28-2024 05-16-2023 Episodic Results Test Name Value Interpretation Reference Range Facility PT D/C Summary (1)on 025 PT D/C Summary (1) [facility] [address] [place] [address] [address] [place] [address] / REHABILITATION SERVICES DISCHARGE SUMMARY MR#: [id number] Acct: [id number] Name: BENEDICT FARLEY Rep #: [id number] : 1950 75 From: Dorothy Buchanan PT, Cert. T Referring Dr.: Dr. Mamadou Ibarra MD Status: REG RCR Insurance: [employer] MEDICARE PPO SELF PAY INSURANCE Discharge Summary D/C summary: It has been my pleasure to treat BENEDICT WENDY CHOURELL referred by Dr. Mamadou Ibarra MD, with the diagnosis of BACK PAIN for a total of 7 visit(s). Discharge Date: 06/18/25 Please see the following information for a summary of their discharge status. Subjective Subjective: PATIENT REPORTS HIS R PEC FLARED UP FOR NO APPARENT REASON THE DAY AFTER A PT SESSION. HE STATES IT WAS GETTING BETTER UNTIL LAST NIGHT. HE ALSO REPORTS SOME NEW L HIP PAIN FOR A FEW DAYS BUT THAT HAS GONE AWAY AND HE HASN'T HAD THAT FOR ABOUT A WEEK NOW. PATIENT REPORTS HE HAD TO GO DOWNSTAIRS TO GET SOMETHING FOR HIS LAST NIGHT ABOUT 5 PM AND HE GOT TO THE TOP OF THE STAIRS HIS PEC FLAIRED BACK UP AGAIN. HE STATES AFTER TAKING ALEVE AND PUTTING ICE ON HIS PEC PLUS USING MUSCLE CREAM IT SETTLED DOWN. STATES NO PAIN TODAY. ABLE TO GET OUT OF BED, DO CHORES AND OTHER NORMAL ADL'S PAINFREE TODAY. DESPITE ALL THIS HE REPORTS HIS BACK HAS BEEN FINE. HE STATES HE FEELS IF HE GIVES HIS PEC SOME TIME TO HEAL AND THEN CAN GET BACK TO ALL OF HIS EX'S HE WILL DO GOOD. Pain LB: Pain Intensity (Out of 10): 0 R PEC: Pain Intensity (Out of 10): 0 L HIP: Pain Intensity (Out of 10): 0 Overall Improvement % Improvement: 95 Objective Objective/Function: PATIENT WAS SEEN TODAY FOR RE-ASSESSMENT OF PROGRESS TOWARD THE SET PT GOALS AND THE NEED FOR FURTHER PHYSICAL THERAPY VS READINESS FOR DISCHARGE. ALL GOALS FOR PATIENTS BACK HAVE BEEN MET AT THIS TIME HOWEVER HE IS LIMITED IN DOING SOME OF HIS HEP DUE TO R PEC PAIN. PATIENT AND THERAPIST ARE HOPEFUL THAT HE WILL BE ABLE TO RESUME ALL EX'S R PEC PAIN RESOLVES. PATIENT IS APPROPRIATE FOR DISCHARGE FROM PT FOR HIS BACK AND PHYSICIAN FOLLOW RECOMMENDED FOR PEC NEEDED AND PATIENT AGREEABLE. Goals Goal 1:: PATIENT WILL BE ABLE TO COMMUNICATE PROPER ACTIVITY MODIFICATIONS TO INDEP'LY MANAGE BACK PAIN AND MINIMIZE FURTHER INJURY. Goal Progress: Goal Met Goal 2:: PATIENT WILL DEMONSTRATE PROPER POSTURE CONTROL IN SITTING AND STANDING TO MINIMIZE BACK PAIN. Goal Progress: Goal Met Goal 3:: PATIENT WILL DEMONSTRATE KNOWLEDGE OF PROPER BODY MECHANICS FOR ADL'S TO DECREASE STRESS ON THE BACK AND MINIMIZE RISK OF FURTHER INJURY AND PAIN. Goal Progress: Goal Met Goal 4:: PATIENT WILL BE INDEP WITH APPROPRIATE STRENGTHENING EX'S TO ASSIST WITH STABILIZATION AND MOVEMENT OF THE SPINE. Goal Progress: Goal Met Goal 5:: PATIENT WILL BE INDEP WITH APPROPRIATE STRETCHING EX'S TO DECREASE STRESS ON THE SPINE. Goal Progress: Goal Met Goal 6:: PATIENT WILL REPORT RETURN TO PLOF WITH 0-2/10 LBP. Goal Progress: Goal Met Plan Plan: D/C TO INDEP EX AND PHYSICIAN FOLLOW UP NEEDED. D/C Information d/c sentence: If there are questions or concerns regarding this patient's physical therapy, please feel free to call me at [phone]. Thank you for the referral of this patient. Sincerely, Dorothy Buchanan PT, Cert MDT Balance/Gait/Functio nal tests Balance/Special Test Scores Oswestry Low Back Score: 2 Improvement % Improvement: 95 06/18/25 1301 CC: Dr. Mamadou Ibarra MD NOAH Signed Normal [facility] Inital Evaluation (1) - PTon 05-20-2025 Inital Evaluation (1) - PT [facility] [address] [place] [address]. [address] [place] [address] / REHABILITATION SERVICES INITIAL EVALUATION MR#: [id number] Acct: [id number] Name: BENEDICT FARLEY Rep #: [id number] : 1950 74 From: Nirmal Adams PT. MDT Referring Dr.: Dr. Mamadou Ibarra MD Status: REG RCR Insurance: [employer] MEDICARE PPO SELF PAY INSURANCE Patient's Visit Information Visit Information Visit Information: BENEDICT FARLEY is a 74 year old M referred to Physical Therapy by Dr. Mamadou Ibarra MD with a diagnosis of BACK PAIN. Date of Evaluation: 05/20/25 Physical Therapist: Dorothy Buchanan PT, Cert MDT Visit Plan Frequency: 2x /Week Duration: 4-6 Weeks Plan: FOCUS ON WRITTEN HEP. POSTURE CORRECTION/STRENGTHE REBECCA, INSTRUCTION IN APPROPRIATE BODY MECHANICS AND ACTIVITY MODIFICATIONS. DLS STARTING WITH A NEUTRAL SPINE PROGRESSING ROM TOLERATED. CHRISTIANO LE ROM, STRETCHING AND STRENGTHENING. HEP INSTRUCTION. 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 Present symptoms: CHRISTIANO LOW BACK PAIN L>R. PATIENT DENIES CHRISTIANO LE SX'S. Present since: CHRONIC X 4-5 YEARS WITH LAST EPISODE STARTING ABOUT 5 WKS AGO Pain Scale: CURRENTLY NO PAIN FOR ABOUT A WEEK BUT HAS NOT BEEN VERY ACTIVE DUE TO RECENT EPISODE. Is it getting better, worse or staying the same: GETTING BETTER Commenced as a result of: NO APPARENT REASON BUT HAD BEEN DOING SOME BRUSH CUTTING FOR A COUPLE WEEKS. Symptoms at onset: LOW BACK Worse at onset: BENDING AND TWISTING, TRYING TO GET OUT OF BED, PROLONGED WALKING. Better at onset: PREDNISONE, OTC TYLONOL, LYING, SITTING Disturbed sleep: NO Previous history/Previous treatment: 4-5 YEARS OF EPISODIC LOW BACK PAIN SELF TREATED WITH OTC MUSCLE RUB. Treatment this episode: PREDNISONE, DR. IBARRA AND ONE ED VISIT. Coughing/sneezing/st raining: NEGATIVE FOR PAIN. Gait: ABLE TO WALK AVERAGE DISTANCES BUT "I HAVEN'T PUSHED IT". Bowel or Bladder Dysfunction: NO Accidents: NO Unexplained weight loss: NO Imaging: LUMBAR X-RAY 04/30/25: TECHNIQUE: L/S SPINE MIN 4 VIEWS FINDINGS: No evidence of acute fracture or dislocation. Moderate degenerative changes of the spine. [id number] lower lumbar facet arthropathy. Normal alignment. Vertebral body heights are maintained. RAD/L/S Spine Min 4 Views IMPRESSION: Spondylosis. PMH/Recent major surgery: HTN, HIGH CHOLESTROL. Objective Objective: Sitting/Standing Posture: REDUCED LUMBAR LORDOSIS. NO RELEVANT LATERAL LUMBAR SHIFT. Other Observations: THIS PATIENT AMBULATES INDEP'LY INTO PT WITHOUT ANY AD'S WITH FAIR CADANCE, DECREASED TRUNK ROTATION, GUARDED GAIT AND TRANSFERS. Sensory deficit: CHRISTIANO LE LIGHT TOUCH SENSATION IS GROSSLY INTACT AND SYMMETRICAL ROM deficit: CHRISTIANO HS AND CALF TIGHTNESS. CHRISTIANO HIP IR/ER TIGHTNESS L>R. Motor deficit: CHRISTIANO HIPS 4/5, KNEES 5/5, ANKLES 5/5 Dural Signs: NEGATIVE CHRISTIANO LE'S. Lumbar mvmt loss: flex - MOD ext - PEYTON R SG - PEYTON L SG - PEYTON PATIENT DENIES PAIN WITH STRENGTH, EXTREMITY AND LUMBAR ROM TESTING TODAY. Core strength: FAIR Palpation: NO ACUTE LOWER THORACIC OR LUMBAR TENDERNESS. INCREASED MUSCLE TONE CHRISTIANO PARASPINALS. Balance/Special Test Scores Oswestry Low Back Score: 2 Goals Goal 1:: PATIENT WILL BE ABLE TO COMMUNICATE PROPER [facility] AND MINIMIZE FURTHER INJURY. Goal Time Frame: 4-6 Weeks Goal 2:: PATIENT WILL DEMONSTRATE PROPER POSTURE CONTROL IN SITTING AND STANDING TO MINIMIZE BACK PAIN. Goal Time Frame: 4-6 Weeks Goal 3:: PATIENT WILL DEMONSTRATE KNOWLEDGE OF PROPER BODY MECHANICS FOR ADL'S TO DECREASE STRESS ON THE BACK AND MINIMIZE RISK OF FURTHER INJURY AND PAIN. Goal Time Frame: 4-6 Weeks Goal 4:: PATIENT WILL BE INDEP WITH APPROPRIATE STRENGTHENING EX'S TO ASSIST WITH STABILIZATION AND MOVEMENT OF THE SPINE. Goal Time Frame: 4-6 Weeks Goal 5:: PATIENT WILL BE INDEP WITH APPROPRIATE STRETCHING EX'S TO DECREASE STRESS ON THE SPINE. Goal Time Frame: 4-6 Weeks Goal 6:: PATIENT WILL REPORT RETURN TO PLOF WITH 0-2/10 LBP. Goal Time Frame: 4-6 Weeks Rehabilitation Potential Physical Therapy Diagnosis: CORE AND LE WEAKNESS AND STIFFNESS WITH RECENT EPISODE OF SEVERE BACK PAIN LIMITING NORMAL ADL'S. POSITIVE FINDINGS ON RECENT APR 2025 LUMBAR X-RAY: Moderate degenerative changes of the spine. [id number] lower lumbar facet arthropathy. Rehabilitation Potential: Good Anticipated Interventions Patient/Client Instruction: Educate patient on: Condition, Plan of Care and Risk Factors For the Purpose of:: To improve self management Therapeutic Exercise to Include: Strength training, Body mechanics, Postural training, Flexibilty training, Neuromotor development, "In an aquatic s (more content not included)... [facility] L/S Spine Min 4 Viewson 04-11 L/S Spine Min 4 Views [facility] [address] [place], [place] [id number] L/S Spine Min 4 Views MR#: [id number] Acct: [id number] Name: BENEDICT FARLEY Rep #: [id number] : 1950 M 74 From: Jeb Martinez MD PCP: Dr. Mamadou Ibarra MD Status: REG CLI Study: L/S Spine Min 4 Views Date of Exam: 04/30/25 Exam# [id number] Ordering Dr: Mamadou Ibarra PROCEDURE: L/S SPINE MIN 4 VIEWS 04/30/2025 REASON FOR EXAM: BACK PAIN TECHNIQUE: L/S SPINE MIN 4 VIEWS FINDINGS: No evidence of acute fracture or dislocation. Moderate degenerative changes of the spine. Xhygkskj-hs-xzzvpp lower lumbar facet arthropathy. Normal alignment. Vertebral body heights are maintained. RAD/L/S Spine Min 4 Views IMPRESSION: Spondylosis. Reading Location: [facility] CC: Dr. Mamadou Ibarra MD Hand Tile Maker: Signed [facility] Emergency Department Summary on 04-26-[address] [facility] Medical Records Department [address] [place] [address] Emergency Department Summary 04/26/25 MR#: [id number] Acct: [id number] Name: BENEDICT FARLEY Rep #: [id number] : 1950 74 From: Mariaelena Clemente MD PCP: Dr. Mamadou Ibarra MD Status:DEP ER Location: ED HPI History of Present Illness Chief Complaint: Back Narrative Narrative: Patient is a 74-year-old male presenting to the emergency department for left-sided back pain. Patient has a past medical history as below. Patient states that he has had back pain for the past few weeks. Denies any known injury but does help care for his at home and has to lift her in and out of bed. States that he followed up with his primary care doctor few days ago and he prescribed him a muscle relaxer that has been taking as well as stretches. States he is of not been helping. He denies any known trauma to his back. Denies any saddle anesthesia, bowel or bladder retention or incontinence, weakness or numbness in his legs, IV drug use, fevers or chills. States that the pain is exacerbated when he turns a certain way. [facility] Medical History Hyperlipidemia Dyspepsia Abnormal stress test Essential hypertension Home Medications ???Medication ???Instructions ???Recorded ???Last Taken ???Type aspirin 81 mg tablet,delayed 81 mg PO DAILY 05/04/23 04/25/25 H istory release lisinopril 10 mg tablet 20 mg (2 x 10 mg) PO DAILY #180 12 /04/24 08/16/25 Rx TABLETS atorvastatin 20 mg tablet 20 mg PO QDAY 02/04/25 04/25/25 Hi story oxycodone 5 mg capsule 5 mg PO Q8H PRN pain 4 days #12 Unknown Rx caps tizanidine 4 mg capsule 4 mg PO Q8H PRN muscle spasticity 04/26/25 Unknown Rx #20 caps tizanidine 4 mg tablet 4 mg PO TID PRN PRN muscle 5 04/25/25 History spasticity Allergy/AdvReac Type Severity Reaction Status Date / Time monosodium glutamate (msg) Allergy Intermediate tongue Verified 02/04/25 14:08 swelling Family History Mother Heart disease Social History Smoking Status: Never smoker alcohol intake: current alcohol intake frequency: holidays/special occasions only substance use type: does not use EXAM Physical Exam Narrative Exam Narrative: Vital signs: Reviewed General: Alert and oriented. No acute distress HEENT: Head is normocephalic and atraumatic, sinuses nontender, pupils equal round and reactive. Nares are patent. Oropharynx and throat exams normal. Neck: Supple without lymphadenopathy nontender. No midline cervical spinal tenderness to palpation. No step-offs or deformities. Cardiovascular: Regular rate and rhythm, no murmurs. No rubs or gallops. Normal S1 and S2 Respiratory: Clear to auscultation bilaterally. No wheezes, rales, rhonchi Abdominal: Soft and nontender. Normal bowel sounds. No guarding or rebound. Nonsurgical abdomen Extremities: No midline thoracic or lumbar spinal tenderness to palpation. No step-offs or deformities. No erythema to the back. There is left paraspinal lumbar tenderness to palpation. No SI joint tenderness to palpation. Normal range of motion in bilateral lower extremities. Normal sensation in bilateral lower extremities. Skin: No rash or redness. Neurological: Cranial nerves II through XII are grossly intact. Normal strength and sensation. Normal cerebellar function The rest of the physical exam is unremarkable Const Vital Signs: 04/26/25 08:53 04/26/25 08:58 04/26/25 10:08 Temperature 96.5 F L 98.6 F Temperature Source Temporal Oral Pulse Rate 101 H 48 L Respiratory Rate 18 16 Blood Pressure 205/65 H 179/71 H 176/77 H Blood Pressure Mean 111 107 110 Pulse Ox 98 96 Oxygen Delivery Method Room Air Room Air MDM MDM MDM Narrative Medical decision making narrative: Patient is a 74-year-old male presenting to emergency department for back pain. Patient was seen and examined. Vitals are stable. Initially is mildly hypertensive however he does have a history of hypertension and he is in pain. Resting in chair. No acute distress. Differential includes but is not limited to: MSK back pain, sciatica, less likely infectious including epidural spinal abscess less likely spinal cord pathology including cauda equina Considered abdominal causes of the pain including kidney stones however the pain is much lower than CVA tenderness. Patient has no midline spinal tenderness to palpation, no indication for imaging. He is had no red flag back pain signs. No recent weight loss or cancer history. States that the pain is worse when he moves a certain way and he has been doing a lot of lifting at home for his (more content not included)... [facility] Anion gap in Serum or Plasma Ordered By: Tonny Armenta on 02-06-2025 Anion gap [Moles/Vol] 10 mmol/L 5-15 [facility] BUN/creatinine ratioOrdered By: Tonny Armenta on 02-06-2025 Urea nitrogen/Creatinine [Mass ratio] 14.4 mg/mg 10-20 [facility] Bilirubin, totalOrdered By: Tonny Armenta on 02-06-2025 Bilirubin [Mass/Vol] 0.53 mg/dL 0.00-1.30 [facility] Calculated very low density lipoprotein (VLDL) cholesterol measurementOrdered By: Tonny Armenta on 02-06-2025 Calculated very low density lipoprotein (VLDL) cholesterol measurement 36 mg/dL 5-40 [facility] Carbon dioxide, total [Moles /volume] in Central venous bloodOrdered By: Tonny Armenta on 02-06-2025 CO2 [Moles/Vol] 26.1 mmol/L 21.0-32.0 [facility] Chloride assayOrdered By: Juwan Armenta on 02-06-2025 Chloride [Moles/Vol] 104 mmol/L 98-108 [facility] Comprehensive Metabolic Prof ilon 02-06-2025 Albumin [Mass/Vol] 4.4 g/dL Normal 3.4-4.8 [facility] Comment on above: Performed By: #### L 500.4100, L500.4050 #### [facility] [address] [place], [address] Albumin/Globulin [Mass ratio] 1.6 {ratio} Normal 0.9-2.4 [facility] Comment on above: Performed By: #### L 500.4100, L500.4050 #### [facility] [address] [place], [address] ALK PHOS 91 U/L Normal 40-129 [facility] Comment on above: Performed By: #### L 500.4100, L500.4050 #### [facility] [address] [place], [address] ALT [Catalytic activity/Vol] 45 U/L Normal <=46 [facility] Comment on above: Performed By: #### L 500.4100, L500.4050 #### [facility] [address] [place], [address] AST [Catalytic activity/Vol] 28 U/L Normal <=37 [facility] Comment on above: Performed By: #### L 500.4100, L500.4050 #### [facility] [address] [place], [address] Bilirubin [Mass/Vol] 0.53 mg/dL Normal 0.00-1.30 [facility] Comment on above: Performed By: #### L 500.4100, L500.4050 #### [facility] [address] [place], [address] BUN/CRE 14.4 RATIO Normal 10-20 [facility] Comment on above: Performed By: #### L 500.4100, L500.4050 #### [facility] [address] [place], [address] Calcium [Mass/Vol] 9.1 mg/dL Normal 7.6-11.0 [facility] Comment on above: Performed By: #### L 500.4100, L500.4050 #### [facility] [address] [place], [address] Chloride [Moles/Vol] 104 mmol/L Normal 98-108 [facility] Comment on above: Performed By: #### L 500.4100, L500.4050 #### [facility] [address] [place], [address] CO2 [Moles/Vol] 26.1 mmol/L Normal 21.0-32.0 [facility] Comment on above: Performed By: #### L 500.4100, L500.4050 #### [facility] [address] [place], [address] Creatinine [Mass/Vol] 0.92 mg/dL Normal 0.70-1.20 [facility] Comment on above: Performed By: #### L 500.4100, L500.4050 #### [facility] [address] [place], [address] GAP 10 Normal 5-15 [facility] Comment on above: Performed By: #### L 500.4100, L500.4050 #### [facility] [address] [place], [address] GFR/1.73 sq M.predicted among non-blacks MDRD (S/P/Bld) [Vol rate/Area] 88 mL/min/{1.73_m2} Normal >60 [facility] Comment on above: Result Comment: mL/m in/1.73m2 CKD-EPI Creatinine Equation (2020) Performed By: #### L 500.4100, L500.4050 #### [facility] [address] [place], [address] Globulin (S) [Mass/Vol] 2.7 g/dL Normal 2.2-4.2 [facility] Comment on above: Performed By: #### L 500.4100, L500.4050 #### [facility] [address] [place], [address] Glucose [Mass/Vol] 101 mg/dL High 70-99 [facility] Comment on above: Performed By: #### L 500.4100, L500.4050 #### [facility] [address] [place], [address] Potassium [Moles/Vol] 4.3 mmol/L Normal 3.3-5.1 [facility] Comment on above: Performed By: #### L 500.4100, L500.4050 #### [facility] [address] [place], [address] Sodium [Moles/Vol] 139 mmol/L Normal 133-145 [facility] Comment on above: Performed By: #### L 500.4100, L500.4050 #### [facility] [address] [place], [address] T PROT 7.1 g/dL Normal 5.9-8.4 [facility] Comment on above: Performed By: #### L 500.4100, L500.4050 #### [facility] [address] [place], [address] Urea nitrogen [Mass/Vol] 13 mg/dL Normal 4-19 [facility] Comment on above: Performed By: #### L 500.4100, L500.4050 #### [facility] [address] [place], [address] Glomerular filtration rate ( GFR) estimation/1.73 sq m using serum, plasma, or whole bOrdered By: Tonny Armenta on 02-06-2025 GFR/1.73 sq M.predicted among non-blacks MDRD (S/P/Bld) [Vol rate/Area] 88 mL/min/{1.73_m2} >60 [facility] Comment on above: mL/min/1.73m2 CKD-EP I Creatinine Equation (2020) LDL calc ser/plasOrdered By: Tonny Armenta on 02-06-2025 Cholesterol in LDL [Mass/Vol] 97 mg/dL [facility] Comment on above: Qpmgqaecsr=898-961 m g/dL & Higher Rkvt=915 mg/dL or greater Laboratory - Chemistry and C hemistry - challengeOrdered By: Tonny Armenta on 02-06-2025 AST [Catalytic activity/Vol] 28 U/L <38 [facility] Lipid Profileon 02-06-2025 CHOL:HDL 4.03 Normal [facility] Comment on above: Performed By: #### L 500.4100, L500.4050 #### [facility] [address] [place], [address] Cholesterol [Mass/Vol] 177 mg/dL Normal <=200 [facility] Comment on above: Result Comment: Chol esterol level, Desirable <200 mg/dL Borderline high cholesterol 200-239 mg/dL High cholesterol >=240 mg/dL Recommendations of the NCEP Adult Treatment Panel for the following risk-cutoff thresholds for the [place] population. Performed By: #### L 500.4100, L500.4050 #### [facility] [address] [place], [place], [address] Cholesterol in HDL [Mass/Vol] 44 mg/dL Normal [facility] Comment on above: Result Comment: Steffany onal Cholesterol Education Program (NCEP) guidelines: <40 mg/dL: Low HDL-cholesterol (major risk factor for CHD) >= 60 mg/dL: High HDL-cholesterol (negative risk factor for CHD) HDL-cholesterol is affected by a number of factors, e.g. smoking, exercise, hormones, sex and age. Performed By: #### L 500.4100, L500.4050 #### [facility] [address] [place], [address] (755) Cholesterol in LDL [Mass/Vol] 97 mg/dL Normal [facility] Comment on above: Result Comment: Bord eezjqv=077-220 mg/dL Higher Gukn=839 mg/dL or greater Performed By: #### L 500.4100, L500.4050 #### [facility] [address] [place], [address] Cholesterol in VLDL [Mass/Vol] 36 mg/dL Normal 5-40 [facility] Comment on above: Performed By: #### L 500.4100, L500.4050 #### [facility] [address] [place], [address] Triglyceride [Mass/Vol] 182 mg/dL Normal [facility] Comment on above: Result Comment: The drugs N-Acetylcysteine and Metamizole may falsely depress this assay. Normal range: <150 mg/dL Borderline High: 150-199 mg/dL High: 200-499 mg/dL Very High: >500 mg/dL Performed By: #### L 500.4100, L500.4050 #### [facility] [address] [place], [address] Potassium measurement (mass/ volume)Ordered By: Tonny Armenta on 02-06-2025 Potassium (Unsp spec) [Mass/Vol] 4.3 mmol/L 3.3-5.1 [facility] Screening total cholesterol/ high density lipoprotein (HDL) cholesterol ratioOrdered By: Tonny Armenta on 02-06-2025 Cholesterol.total/Maricruz sterol in HDL [Mass ratio] 4.03 {ratio} [facility] Serum creatinine measurement (mass/volume)Ordered By: Tonny Armenta on 02-06-2025 Creatinine [Mass/Vol] 0.92 mg/dL 0.70-1.20 [facility] Serum globulin measurementOr dered By: Tonny Armenta on 02-06-2025 Globulin (S) [Mass/Vol] 2.7 g/dL 2.2-4.2 [facility] Serum glucose measurement (m ass/volume)Ordered By: Tonny Armenta on 02-06-2025 Glucose [Mass/Vol] 101 mg/dL High 70-99 [facility] Serum or plasma alanine deleon otransferase (ALT) measurementOrdered By: Tonny Armenta on 02-06-2025 ALT [Catalytic activity/Vol] 45 U/L <47 [facility] Serum or plasma albumin christina urement (mass/volume)Ordered By: Tonny Armenta on 02-06-2025 Albumin [Mass/Vol] 4.4 g/dL 3.4-4.8 [facility] Serum or plasma albumin/glob ulin mass ratioOrdered By: Tonny Geovany on 02-06-2025 Albumin/Globulin [Mass ratio] 1.6 {ratio} 0.9-2.4 [facility] Serum or plasma alkaline belinda sphatase measurementOrdered By: Tonnyenrique Armenta on 02-06-2025 ALP [Catalytic activity/Vol] 91 U/L 40-129 [facility] Serum or plasma calcium christina urement (mass/volume)Ordered By: Tonny Armenta on 02-06-2025 Calcium [Mass/Vol] 9.1 mg/dL 7.6-11.0 [facility] Serum or plasma cholesterol in HDL measurement (mass/volume)Ordered By: Tonny Armenta on 02-06-2025 Cholesterol in HDL [Mass/Vol] 44 mg/dL >40 [facility] Comment on above: National Cholesterol Education Program (NCEP) guidelines:<40 mg/dL: Low HDL-cholesterol (major risk factor for CHD)>= 60 mg/dL: High HDL-cholesterol (negative risk factor for CHD)HDL-cholesterol is affected by a number of factors, e.g. smoking, exercise, hormones, sex and age. Serum or plasma cholesterol measurement (mass/volume)Ordered By: Tonny Armenta on 02-06-2025 Cholesterol [Mass/Vol] 177 mg/dL <201 [facility] Comment on above: Cholesterol level, D esirable <200 mg/dLBorderline high cholesterol 200-239 mg/dLHigh cholesterol >=240 mg/dLRecommendations of the NCEP Adult Treatment Panel for the following risk-cutoff thresholds for the [place] population. Serum or plasma urea nitroge n measurement (mass/volume)Ordered By: Tonny Armenta on 02-06-2025 Urea nitrogen [Mass/Vol] 13 mg/dL 4-19 [facility] Sodium levelOrdered By: Ranjit Armenta on 02-06-2025 Sodium [Moles/Vol] 139 mmol/L 133-145 [facility] Total proteinOrdered By: Sandoval Armenta on 02-06-2025 Protein [Mass/Vol] 7.1 g/dL 5.9-8.4 [facility] Triglycerides measurementOrd ered By: Tonny Armenta on 02-06-2025 Triglyceride [Mass/Vol] 182 mg/dL <199 [facility] Comment on above: The drugs N-Acetylcy steine and Metamizole may falsely depress this assay. Normal range: <150 mg/dLBorderline High: 150-199 mg/dLHigh: 200-499 mg/dLVery High: >500 mg/dL Cardiology Visit Reporton Cardiology Visit Report [facility]. [address] [place] [address] OFFICE VISIT Date of Service: 02/04/25 MR#: [id number] Acct: [id number] Name: BENEDICT FARLEY Rep #: [id number] : 1950 Provider: Dr. 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 Normal [facility] CREATININE FINGERSTICKon CREATININE WB < 1.0 Normal 0.70-1.30 [facility] Comment on above: Performed By: #### L 9100.0200 #### [facility] [address] [place], [place], [address] EGFR WB > 60.0000 Normal >60 [facility] Comment on above: Performed By: #### L 9100.0200 #### [facility] [address] [place], [place], [address] Coronary Angiography CTon Coronary Angiography CT [facility] Services [address] [place] [address] 08/28/24 1652 MR#: [id number] Acct: [id number] Name: BENEDICT FARLEY Rep #: [id number] : 1950 74 From: Vikas Flood MD [...] MD; Dr. Vikas Flood MD Signed Normal [facility] Limited Chest CT Cardiac Onl yon 08-28-[address] Cardiac Only [facility] Imaging Services [address] [place], [place] [address] Limited Chest CT Cardiac Only MR#: [id number] Acct: [id number] Name: BENEDICT FARLEY Rep #: [id number] : 1950 M 74 From: Pasha james MD PCP: Dr. Mamadou Ibarra MD Status: REG CLI Study: Limited Chest CT Cardiac Only Date of Exam: Exam# [id number] Ordering Dr: Tonny Armenta MD [id number] STUDY: CT CHEST WITH T WITHOUT CONTRAST [...] Tonny Armenta MD; Dr. Mamadou Ibarra MD Hand Tile Maker: Signed Normal [facility] Carotid Duplex Ultrasoundon 08-21-2024 Carotid Duplex Ultrasound [facility] [place] [address] Carotid Duplex Ultrasound 08/21/24 1254 MR#: [id number] Acct: [id number] Name: BENEDICT FARLEY Rep #: [id number] : 1950 74 From: Wilver Tilley MD Attending Dr: Dr. Tonny Armenta MD Status: REG CLI Ordering Dr: Tonny Armenta MD Date: 08/21/24 Location: [facility] Sex: M C Admitted: Reason For Study: [...] the left vertebral artery. Procedure Carotid Duplex 01337. This is a Carotid Duplex examination using B-mode, color flow and specral Doppler. Exam performed in department. VL/Carotid Duplex Ultrasound Interpretation Summary Mild (<50%) stenosis right extracranial internal carotid. Mild (<50%) stenosis left extracranial internal carotid. Patent and antegrade vertebrals bilaterally. Ordering Physician: Tonny Armenta Referring Physician: Mamadou Ibarra MD Performed By: Mckayla Lane RVT 08/21/241753 Date Wilver Tilley MD CC: Dr. Tonny Armenta MD; Dr. Mamadou Ibarra MD Date Dictated: 08/21/24 1254 Date Transcribed: 08/21/241753 Hand Tile Maker: Signed Normal [facility] Echo Completeon 08-21-2024 Echo [facility] [address] [place] [address] Echo Complete 08/21/24 1329 MR#: [id number] Acct: [id number] Name: BENEDICT FARLEY Rep #: [id number] : 1950 74 From: Vikas Flood MD Attending Dr: Dr. Tonny Armenta MD Status: REG CLI Ordering Dr: Tonny Armenta MD Date: 08/21/24 Location: [facility] Sex: M C Admitted: Reason For Study: [...] MD Date Dictated: 08/21/24 1329 Date Transcribed: 08/25/24 0930 Hand Tile Maker: Signed Normal [facility] Cardiology Visit Reporton Cardiology Visit Report [facility] [address] [place] [address] OFFICE VISIT Date of Service: 07/28/24 MR#: [id number] Acct: [id number] Name: BENEDICT FARLEY Rep #: [id number] : 1950 Provider: Dr. 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 Normal [facility] Basophil percentageOrdered B y: Tonny Armenta on 05-24-2023 Chloride [Moles/Vol] 110 mmol/L 98-107 [facility] Glucose [Mass/Vol] 114 mg/dL 74-106 [facility] Comment on above: Fasting Glucose resu lt from 100 to 125 mg/dL suggests IMPAIRED HOMEOSTASIS per A.D.A. criteria. Potassium [Moles/Vol] 4.2 mmol/L 3.5-5.1 [facility] Sodium [Moles/Vol] 140 mmol/L 136-145 [facility] Laboratory - Chemistry and C hemistry - challengeOrdered By: Tonny Armenta on 05-24-2023 CO2 [Moles/Vol] 26.0 mmol/L 21.0-32.0 [facility] Urea nitrogen/Creatinine [Mass ratio] 15.2 mg/mg 10-20 [facility] No Panel InformationOrdered By: Tonny Armenta on 05-24-2023 Estimated GFR (MDRD) Amer 104 mL/min >60 [facility] Comment on above: GFR Calc Estimated GFR (MDRD) Non-Af Amer 86 mL/min >60 [facility] Comment on above: Non- GFR Calc Thyroid Stimulating Hormone (TSH) 2.04 uIU/mL 0.358-3.74 [facility] Serum or plasma calcium christina urement (mass/volume)Ordered By: Tonny Armenta on 05-24-2023 Calcium [Mass/Vol] 8.7 mg/dL 8.5-10.1 [facility] Serum or plasma creatinine m easurement (mass/volume)Ordered By: Tonny Armenta on 05-24-2023 Creatinine [Mass/Vol] 0.92 mg/dL 0.70-1.30 [facility] Comment on above: The validity of the calculated GFR & GFRAA in patients over 70 years has not been determined. Clinical correlation is essential. Serum or plasma urea nitroge n measurement (mass/volume)Ordered By: Tonny Armenta on 05-24-2023 Urea nitrogen [Mass/Vol] 14 mg/dL 7-18 [facility] Thin prep Papanicolaou smear with manual screeningOrdered By: Tonny Armenta on 05-24-2023 Thin prep Papanicolaou smear with manual screening 4 5-15 [facility] Absolute lymphocyte countOrd ered By: Italo Ibarra on 04-18-2023 Lymphocytes Auto (Unsp spec) [#/Vol] 1.19 10*3/uL 0.83-4.51 [facility] Basophil percentageOrdered B y: Italo Ibarra on 04-18-2023 Basophils/100 WBC (Bld) 1.1 % 0-1 [facility] Bilirubin [Mass/Vol] 0.60 mg/dL 0.20-1.00 [facility] Comment on above: For patients on eltr ombopag therapy, use of Dimension [place] TBIL is not recommended. Chloride [Moles/Vol] 108 mmol/L 98-107 [facility] Eosinophils/100 WBC (Bld) 1.8 % 0-5 [facility] Glucose [Mass/Vol] 120 mg/dL 74-106 [facility] Comment on above: Fasting Glucose resu lt from 100 to 125 mg/dL suggests IMPAIRED HOMEOSTASIS per A.D.A. criteria. Neutrophils (Bld) [#/Vol] 2.6 10*3/uL 2.0-7.7 [facility] Neutrophils/100 WBC (Bld) 57.4 % 47-70 [facility] Potassium [Moles/Vol] 4.3 mmol/L 3.5-5.1 [facility] Protein [Mass/Vol] 7.2 g/dL 6.4-8.2 [facility] Sodium [Moles/Vol] 140 mmol/L 136-145 [facility] WBC (Bld) [#/Vol] 4.5 10*3/uL 4.4-11.0 [facility] Blood erythrocytes count (nu mber/volume)Ordered By: Italo Ibarra on 04-18-2023 RBC (Bld) [#/Vol] 4.88 10*6/uL 4.6-6.2 [facility] Blood hemoglobin measurement (mass/volume)Ordered By: Italo Ibarra on 04-18-2023 Hemoglobin (Bld) [Mass/Vol] 14.8 g/dL 13.0-16.5 [facility] Blood lymphocytes/100 leukoc ytesOrdered By: Italo Ibarra on 04-18-2023 Lymphocytes/100 WBC (Bld) 26.7 % 19-41 [facility] Blood monocytes/100 leukocyt esOrdered By: Italo Ibarra on 04-18-2023 Monocytes/100 WBC (Bld) 12.8 % 0-10 [facility] Blood platelet mean volumeOr dered By: Italo Ibarra on 04-18-2023 Platelet mean volume (Bld) [Entitic vol] 11.1 fL 6.2-12.0 [facility] Determination of erythrocyte mean corpuscular volume (MCV)Ordered By: Italo Ibarra on 04-18-2023 MCV (RBC) [Entitic vol] 90.2 fL 80-94 [facility] Hematocrit Auto (Bld) [Volum e fraction]Ordered By: Italo Ibarra on 04-18-2023 Hematocrit (Bld) [Volume fraction] 44.0 % 40-54 [facility] - Chemistry and C hemistry - challengeOrdered By: Italo Ibarra on 04-18-2023 ALP [Catalytic activity/Vol] 82 U/L 45-117 [facility] ALT [Catalytic activity/Vol] 53 U/L 16-61 [facility] CO2 [Moles/Vol] 26.0 mmol/L 21.0-32.0 [facility] Globulin (S) [Mass/Vol] 3.4 g/dL 2.2-4.2 [facility] Urea nitrogen/Creatinine [Mass ratio] 14.6 mg/mg 10-20 [facility] - Hematology and Cell countsOrdered By: Italo Ibarra on 04-18-2023 Erythrocyte distribution width (RBC) [Entitic vol] 43.4 fL 35.1-43.9 [facility] Erythrocyte distribution width (RBC) [Ratio] 13.2 % 11.6-14.6 [facility] Immature granulocytes/100 WBC (Bld) 0.200 % 0.0-0.9 [facility] Comment on above: IG% - Immature Granu locytes (promyelocytes, myelocytes and metamyelocytes) > 1% indicates that a LEFT SHIFT is Present. MCH (RBC) [Entitic mass] 30.3 pg 27.0-32.0 [facility] Nucleated RBC/100 WBC (Bld) [Ratio] 0 % 0-5 [facility] MCHC Auto (RBC) [Mass/Vol]Or dered By: Italo Ibarra on 04-18-2023 MCHC (RBC) [Mass/Vol] 33.6 g/dL 32-36 [facility] No Panel InformationOrdered By: Italo Ibarra on 04-18-2023 Estimated GFR (MDRD) Amer 108 mL/min >60 [facility] Comment on above: GFR Calc Estimated GFR (MDRD) Non-Af Amer 89 mL/min >60 [facility] Comment on above: Non- GFR Calc Prostate Specific Antigen Screen 3.08 ng/mL 0.00-4.00 [facility] Comment on above: This test was perfor med using the TPSA assay method for the[employer]Pointe chemistry system. Values obtained with differentassay methods cannot be used interchangably.When changing PSA assays in the course of monitoring apatient, additional sequential testing should be carriedout to confirm baseline values. Platelets bldOrdered By: Jann Ibarra on 04-18-2023 Platelets (Bld) [#/Vol] 159 10*3/uL 150-450 [facility] Serum or plasma albumin christina urement (mass/volume)Ordered By: Italo Ibarra on 04-18-2023 Albumin [Mass/Vol] 3.8 g/dL 3.2-5.0 [facility] Serum or plasma albumin/glob ulin mass ratioOrdered By: Italo Ibarra on 04-18-2023 Albumin/Globulin [Mass ratio] 1.1 {ratio} 0.9-2.4 [facility] Serum or plasma calcium christina urement (mass/volume)Ordered By: Italo Ibarra on 04-18-2023 Calcium [Mass/Vol] 8.7 mg/dL 8.5-10.1 [facility] Serum or plasma creatinine m easurement (mass/volume)Ordered By: Italo Ibarra on 04-18-2023 Creatinine [Mass/Vol] 0.89 mg/dL 0.70-1.30 [facility] Comment on above: The validity of the calculated GFR & GFRAA in patients over 70 years has not been determined. Clinical correlation is essential. Serum or plasma urea nitroge n measurement (mass/volume)Ordered By: Italo Ibarra on 04-18-2023 Urea nitrogen [Mass/Vol] 13 mg/dL 7-18 [facility] Thin prep Papanicolaou smear with manual screeningOrdered By: Italo Ibarra on 04-18-2023 Thin prep Papanicolaou smear with manual screening 20 U/L 15-37 [facility] Thin prep Papanicolaou smear with manual screening 6 5-15 [facility] Vital Signs Date Time Vital Sign Value Performing Clinician Faci lity 04-26-2025 10:08-0400 Body temperature 98.6 [degF] Dr. Mamadou Ibarra MD Work Phone: [facility] 04-26-2025 10:08-0400 Diastolic blood pressure 77 mm[Hg] Dr. Mamadou Ibarra MD Work Phone: [facility] 04-26-2025 10:08-0400 Heart rate 48 /min Dr. Mamadou Ibarra MD Work Phone: [facility] 04-26-2025 10:08-0400 Respiratory rate 16 /min Dr. Mamadou Ibarra MD Work Phone: [facility] 04-26-2025 10:08-0400 SaO2% (BldA) [Mass fraction] 96 % Dr. Mamadou Ibarra MD Work Phone: [facility] 04-26-2025 10:08-0400 Systolic blood pressure 176 mm[Hg] Dr. Mamadou Ibarra MD Work Phone: [facility] 04-26-2025 08:53-0400 Body height 180.[address] Mamadou Ibarra MD Work Phone: [phone])145-669838 [address] 04-26-2025 08:53-0400 Body mass index (BMI) [Ratio] 31.6 kg/m2 Dr. Mamadou Ibarra MD Work Phone: 1([phone])[phone] [place] [address] 04-26-2025 08:53-0400 Body weight 102.[address] Mamadou Ibarra MD Work Phone: 5(238)[phone] [place] [address] 02-04-2025 14:08-0400 Body height 180.[address] Mamadou Ibarra MD Work Phone: 9(310)[phone] [address] 02-04-2025 14:08-0400 Body mass index (BMI) [Ratio] 31.2 kg/m2 Dr. Mamadou Ibarra MD Work Phone: [facility] 02-04-2025 14:08-0400 Body weight 101.[address] Mamadou Ibarra MD Work Phone: [facility] 02-04-2025 14:08-0400 Diastolic blood pressure 78 mm[Hg] Dr. Mamadou Ibarra MD Work Phone: [facility] 02-04-2025 14:08-0400 Heart rate 53 /min Dr. Mamadou Ibarra MD Work Phone: [facility] 02-04-2025 14:08-0400 Respiratory rate 18 /min Dr. Mamadou Ibarra MD Work Phone: [facility] 02-04-2025 14:08-0400 Systolic blood pressure 129 mm[Hg] Dr. Mamadou Ibarra MD Work Phone: [facility] 05-16-2023 08:57-0400 Body weight 100.[address] Italo Ibarra Work Phone: [facility] 05-16-2023 08:57-0400 Diastolic blood pressure 80 mm[Hg] Dr. Italo Ibarra Work Phone: [facility] 05-16-2023 08:57-0400 Heart rate 43 /min Dr. Italo Ibarra Work Phone: [facility] 05-16-2023 08:57-0400 Respiratory rate 16 /min Dr. Italo Ibarra Work Phone: [facility] 05-16-2023 08:57-0400 Systolic blood pressure 139 mm[Hg] Dr. Italo Ibarra Work Phone: [facility] 05-16-2023 08:46-0400 Body height 180.[address] Italo Ibarra Work Phone: [facility] Encounters Encounter Date Encounter Type Care Provider Facility Start: 06-18-2025 End: 06-18-2025 [facility] Start: 04-30-2025 End: 04-30-[address] Mamadou Ibarra MD Work Phone: [facility] Start: 04-30-2025 End: 04-30-[address] Mamadou Ibarra MD -[facility] Work Phone: Start: 04-30-2025 End: 04-30-2025 ambulatory Mamadou Ibarra Facility:[facility] Start: 04-26-2025 End: 04-26-2025 Emergency department patient visit Dr. Mamadou Ibarra MD Work Phone: -Emergency Department Work Phone: Start: 02-06-2025 End: 02-06-[address] Mamadou Ibarra MD Work Phone: [facility] Work Phone: Start: 02-06-2025 End: 02-06-[address] Tonny Armenta MD -[facility] Work Phone: Start: 02-06-2025 End: 02-06-2025 ambulatory Mamadou Ibarra Facility:[facility] Start: 02-04-2025 End: 02-04-[address] Tonny Armenta MD -[facility] Work Phone: Start: 02-04-2025 End: 02-04-[address] Mamadou Ibarra MD Work Phone: [facility] Work Phone: Start: 01-08-2025 ambulatory Mamadou Ibarra Faci lity:[facility] Start: 08-28-2024 ambulatory Mamadou Steini lity:[facility] Start: 08-28-2024 End: 08-28-2024 ambulatory Tonny Geovany Facility:[facility] Start: 08-21-2024 ambulatory Mamadou Steini lity:[facility] Start: 08-21-2024 End: 08-21-2024 ambulatory [facility] Facility:[facility] Start: 07-28-2024 End: 07-28-2024 ambulatory Mamadou Ibarra Facility:[facility] Start: 05-24-2023 End: 05-24-[address] Italo Ibarra Work Phone: [facility] Work Phone: Start: 05-24-2023 End: 05-24-[address] Italo Ibarra Work Phone: [facility] Work Phone: Start: 05-16-2023 End: 05-16-[address] Italo Ibarra Work Phone: [facility] Work Phone: Start: 04-18-2023 End: 04-18-[address] [facility] Start: 02-13-2023 Non-patient / Non-visit Dr. Italo Ibarra Work Phone: [facility] Start: 02-13-2023 End: 02-13-[address] Italo Ibarra Work Phone: [facility] Work Phone: Start: 11-09-2022 Non-patient / Non-visit Dr. Italo Ibarra Work Phone: [facility] Start: 11-09-2022 End: 11-09-[address] Italo Ibarra Work Phone: [facility] Work Phone: Start: 11-09-2022 End: 11-09-[address] [facility] Start: 11-03-2022 End: 11-03-2022 Non-patient / Non-visit Dr. Italo Ibarra Work Phone: [facility] Start: 11-03-2022 End: 11-03-[address] Italo Ibarra Work Phone: [facility]-Pulmonary Services/Neurology Procedures Date Procedure Procedure Detail Performing Clinician Start: 04-30-2025 X-ray of lumbosacral spine Dr. Mamadou Ibarra MD Work Phone: Start: 02-13-2023 Radionuclide imaging of perfusion of myocardium under exercise stress Dr. Italo Ibarra Work Phone: Plan of Treatment Date Care Activity Detail Author Start: 04-26-2025 [facility] Patient Education Back Safety: L ifting Back Exercises: Seated Rotation Back Exercises: Knee Lift Back Exercises: Lower Back Stretch ED Back Exercises, Lumbar ED Back Pain (Acute or Chronic) [facility] Work Phone: Payers Date Payer Category Payer Unknown [id number] 2024 Self-pay [id number] 2022 Medicare [id number] 2012 Private Health Insurance [id number] Unknown [id number] 2.16.8 [id number] Unknown [id number] 2.16.8 [id number] Unknown [id number] 2.16.8 [id number] Unknown [id number] 2.16.8 [id number] Unknown [id number] 2.16.8 [id number] Unknown [id number] 2.16.8 [id number] Unknown [id number] 2.16.8 [id number] Unknown [id number] 2.16.8 [id number] Unknown [id number] 2.16.8 [id number] Unknown [id number] 2.16.8 [id number] Unknown [id number] 2.16.8 [id number] Unknown [id number] 2.16.8 [id number] Social History Date Type Detail Facility Start: 06-27-2019 End: 05-16-2023 Tobacco smoking status NHIS Unknown if ever smoked [facility] Start: 1950 Sex Assigned At Male [facility] Start: 05-16-2023 End: 04-26-2025 Tobacco smoking status NHIS Never smoked tobacco (finding) [facility] Radiology Diagnostic study note 04-30-2025 Note Date & Type Note Facility 04-30-2025 Radiology Diagnostic study note [facility] Imaging Services [address] [place], [place] [id number] L/S Spine Min 4 Views MR#: [id number] Acct: [id number] Name: BENEDICT FARLEY Rep #: [id number] : 1950 M 74 From: Julito Martinez MD PCP: Dr. Mamadou Ibarra MD Status: REG CLI Study:L/S Spine Min 4 Views Date of Exam: 04/30/25 Exam# [id number] Ordering Dr: Jefry Ibarra MD PROCEDURE: L/S SPINE MIN 4 VIEWS 04/30/2025 REASON FOR EXAM: BACK PAIN TECHNIQUE: L/S SPINE MIN 4 VIEWS FINDINGS: No evidence of acute fracture or dislocation. Moderate degenerative changes of the spine. [id number] lower lumbar facet arthropathy. Normal alignment. Vertebral body heights are maintained. RAD/L/S Spine Min 4 Views IMPRESSION: Spondylosis. Reading Location: [id number] CC: Dr. Mamadou Ibarra MD ~ Hand Tile Maker: Signed [facility] Evaluation note 02-04-2025 Note Date & Type Note Facility 02-04-2025 Evaluation note Diagnosis Onset Date Resolution Aortic stenosis chronic February 04, 2025 1:35pm Carotid artery disease chronic Ma y 2024 1:35pm Coronary artery disease chronic M ay 2024 1:35pm Dyslipidemia chronic February 04 1:35pm Essential hypertension chronic Ma y 2024 1:35pm [facility] Work Phone: Progress note 02-04-2025 Note Date & Type Note Facility 02-04-2025 Progress note [facility] Progress note 05-28-2025 Note Date & Type Note Facility 02-04-2025 Progress note Note Date/Time February 04, 2025 2:24pm [facility] [address] [place] [address] OFFICE VISIT Date of Service: 02/04/25 MR#: [id number] Acct: [id number] Name: BENEDICT FARLEY Rep #: [id number] : 1950 Provider: Dr. 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 Mamadou Ibarra MD ~ [facility] Work Phone: Evaluation note Note Date & Type Note Facility Evaluation note No assessment information availa [facility] Work Phone: Evaluation note Note Date & Type Note Facility Evaluation note Diagnosis Onset Date Abnormal stress test chronic Aortic stenosis chronic Dyslipidemia chronic Essential hypertension chron ic Sinus bradycardia [facility] Work Phone: Evaluation note Note Date & Type Note Facility Evaluation note Diagnosis Onset Date Resolution Aortic stenosis chronic February 04, 2025 1:35pm Carotid artery disease chronic Ma y 2024 1:35pm Coronary artery disease chronic M ay 2024 1:35pm Dyslipidemia chronic February 04 1:35pm Essential hypertension chronic Ma y 2024 1:35pm [facility] Work Phone: Hospital Discharge instructions Note Date & Type Note Facility Hospital Discharge instructions Additional Instructions Please take the medications as prescribed. Try the stretches at home as well. Your evaluation in the Emergency Department did not reveal any acute reason for admission. However, I want to emphasize that you may be early in the course of a disease process or illness even if it is not present. For this reason you should follow-up within 24 hours for reevaluation with either your primary care physician or if necessary back here in the Emergency Department. You should return to the Emergency Department immediately if your symptoms worsen or new symptoms develop. [facility] Work Phone: Reason for referral (narrative) Note Date & Type Note Facility Reason for referral (narrative) No reason for referral information available [facility] Work Phone: Chief Complaint and Reason for [...] AORTIC INSUFFICIENCY NONRHEUMATIC AORTIC INSUFFICIENCY ABN STRESS (RANNEY) EORDER Reason for Visit Abnormal stress test Aortic stenosis Dyslipidemia Essential hypertension Sinus bradycardia Chief Complaint Admit Date 6 M FU February 04, 2025 1:35p m Chief Complaint Admit Date 6 M FU February 04, 2025 1:35p m EORDERS February 06, 2025 12:41 pm BACK PAIN April 26, 2025 8: 53am Chief Complaint Admit Date 6 M FU February 04, 2025 1:35p m EORDERS February 06, 2025 12:41 pm BACK PAIN April 26, 2025 8: 53am XRAY BACK PAIN April 30, 2025 1: 44pm Advance Directives No Advanced Directives Records Found Advance Directive Response Recorded Date/ Time Living Will Yes June 27 4:55pm Power of Director Federal Yes June 27, 2019 4:55pm Advance Directive Response Recorded Date/ Time Living Will Yes June 27 5:55pm Power of Director Federal Yes June 27, 2019 5:55pm Advance Directive Response Recorded Date/ Time Do you have a Healthcare Power of Director Federal? No April 26, 2025 9:40am Summary Purpose Family History No Family History [...] February 06, 2025 End: February 06, 2025 Team Status: Active Member Role/Relationship Status Dates Dr. Mamadou Ibarra MD Primary Care Provider Acti ve Team Status: Inactive Member Role/Relationship Status Dates Dr. Mamadou Ibarra MD Primary Care Provider Acti ve Start: February 04, 2025 End: February 04, 2025 Dr. Mamadou Ibarra MD Referring Provider Active Start: February 04, 2025 End: February 04, 2025 Dr. Tonny Armenta MD Attending Provider Active Start: February 04, 2025 End: February 04, 2025 Team Status: Inactive Member Role/Relationship Status Dates Dr. Mamadou Ibarra MD Primary Care Provider Acti ve Start: February 06, 2025 End: February 06, 2025 Dr. Tonny Armenta MD Attending Provider Active Start: February 06, 2025 End: February 06, 2025 Dr. Tonny Armenta MD Referring Provider Active Start: February 06, 2025 End: February 06, 2025 Team Status: Inactive Member Role/Relationship Status Dates Dr. Mamadou Ibarra MD Primary Care Provider Acti ve Start: April 26, 2025 End: April 26, 2025 Dr. Mariaelena Clemente MD Emergency Provider Active S tart: April 26, 2025 End: April 26, 2025 Team Status: Inactive Member Role/Relationship Status Dates Dr. Mamadou Ibarra MD Primary Care Provider Acti ve Start: April 26, 2025 End: April 26, 2025 Dr. Mariaelena Clemente MD Attending Provider Active S tart: April 26, 2025 End: April 26, 2025 Dr. Mariaelena Clemente MD Emergency Provider Active S tart: April 26, 2025 End: April 26, 2025 Team Status: Inactive Member Role/Relationship Status Dates Dr. Mamadou Ibarra MD Primary Care Provider Acti ve Start: April 30, 2025 End: April 30, 2025 Dr. Mamadou Ibarra MD Attending Provider Active Start: April 30, 2025 End: April 30, 2025 Dr. Mamadou Ibarra MD Referring Provider Active Start: April 30, 2025 End: April 30, 2025 Goals (unrecognized section and content) Goals [...] ized section and content) DATE CREATED AUTHOR 06/20/2025 [facility] FOR RECORDS PERTAINING TO PATIENTS WHO [...] BE BASED ON THE PRIMARY CLINICAL RECORDS. [employer] [facility]. provides no warranty or guarantee of the accuracy or completeness of information in this document.
[2025-06-27 11:50] LABS: AST(SGOT) 29 U/L (<=37); Alanine Aminotransfer ALT/SGPT 53 U/L (<=46); Albumin, Serum 4.3 g/dL (3.4-4.8); Alkaline Phosphatase 91 U/L (40-129); Bilirubin, Direct 0.24 mg/dL (0.00-0.30); Cholesterol 179 mg/dL (<=200); Globulin 2.6 g/dL (2.2-4.2); Low Density Lipoprotein Calc. 102 mg/dL; Triglycerides 202 mg/dL; Very Low Density Lipoprotein 40 mg/dL (5-40); cholesterol:hdl ratio screen 4.28
== END | disposition home or self-care (01) ==
LOC: LAB 09:34
PROVIDERS: PCP Family Medicine; Referring Provider Student in an Organized Health Care Education/Training Program; Visit Provider Student in an Organized Health Care Education/Training Program
DX: E78.5 Hyperlipidemia, unspecified (principal)
CPT/HCPCS: 36415; 80061; 80076